=== PATIENT | male | born 1940 | race Caucasian/White ===

== ENCOUNTER 2020-10-08 09:35 | Inpatient (IN) | payer MEDICARE, OTHER ==
[2020-10-08] MEDS ORDERED: IPRATROPIUM-ALBUTEROL 3 ML NEB INHALATION STA (10:09)
--- NOTE | 2020-10-08 10:23 | XR ---
EXAMINATION TYPE: XR chest 2V DATE OF EXAM: 10/08/2020 COMPARISON: NONE HISTORY: Chest pain TECHNIQUE: Frontal and lateral views of the chest are obtained. FINDINGS: There is patchy airspace disease seen bilaterally with mild pulmonary edema and small bilateral pleur al effusions. Cardiac silhouette is not significantly enlarged. IMPRESSION: There is patchy airspace disease seen bilaterally with mild pulmonary edema and small bilateral pleur al effusions.
[2020-10-08 10:48] LABS: Basophils # (A) 0.1 k/uL (0-0.2); Basophils % (A) 1 %; Eosinophils # (A) 0.2 k/uL (0-0.7); Eosinophils % (A) 2 %; HCT 38.3 % (39.0-53.0); Lymphocytes % (A) 11 %; MCH 32.9 pg (25.0-35.0); MCHC 33.9 g/dL (31.0-37.0); Mean Platelet Volume 7.5; Monocytes # (A) 0.4 k/uL (0-1.0); Monocytes % (A) 5 %; Neutrophils # (A) 6.8 k/uL (1.3-7.7); Neutrophils % (A) 80 %; Platelet Count 192 k/uL (150-450); RBC 3.95 m/uL (4.30-5.90); RDW 14.4 % (11.5-15.5); WBC 8.5 k/uL (3.8-10.6)
[2020-10-08 10:59] LABS: Albumin 4.2 g/dL (3.5-5.0); Calcium 9.2 mg/dL (8.4-10.2); Magnesium 2.1 mg/dL (1.6-2.3); Total Bilirubin 0.9 mg/dL (0.2-1.3); Total Protein 7.1 g/dL (6.3-8.2)
[2020-10-08 11:36] LABS: Prothrombin Time 10.9 sec (9.0-12.0)
--- NOTE | 2020-10-08 11:36 | ED ---
SOB HPI - General Chief Complaint: Shortness of Breath Stated Complaint: Time Seen by Provider: 10/08/20 09:35 Source: patient, RN/MD, EMS, RN notes reviewed Mode of arrival: EMS Limitations: no limitations - History of Present Illness Initial Comments: This is a 80-year-old male who is a smoker but denies any history of heart disease or lung issues who was sent in from [facility] today because of chest heaviness and shortness of breath. He did demonstrate evidence of a bundle- branch block. He was given aspirin at the facility. He was transferred here by EMS. He currently demonstrates no chest pain he does have some slight shortness of breath he describes the pain as a heaviness something sitting on his chest when he has it. No recent fevers chills nausea vomiting sweats no phlegm production. MD Complaint: shortness of breath, chest pain - Related Data Allergies Allergy/AdvReac Type Severity Reaction Status Date / Time No Known Allergies Allergy Verified 10/08/20 09:47 Review of Systems ROS Statement: Those systems with pertinent positive or pertinent negative responses have been documented in the HPI. ROS Other: All systems not noted in ROS Statement are negative. Past Medical History Past Medical History: No Reported History History of Any Multi-Drug Resistant Organisms: None Reported Past Surgical History: No Surgical Hx Reported Past Psychological History: No Psychological Hx Reported Smoking Status: Light tobacco smoker Past Alcohol Use History: None Reported Past Drug Use History: None Reported General Exam - General Exam Comments Initial Comments: This is a well-developed well-nourished awake alert oriented 3 male Limitations: no limitations General appearance: alert, in no apparent distress Head exam: Present: atraumatic, normocephalic, normal inspection Eye exam: Present: normal appearance, PERRL, EOMI. Absent: scleral icterus, conjunctival injection, periorbital swelling ENT exam: Present: normal exam, mucous membranes moist Neck exam: Present: normal inspection. Absent: tenderness, meningismus, lymphadenopathy Respiratory exam: Present: normal lung sounds bilaterally, decreased breath sounds. Absent: respiratory distress, wheezes, rales, rhonchi, stridor Cardiovascular Exam: Present: normal rhythm, tachycardia, normal heart sounds. Absent: systolic murmur, diastolic murmur, rubs, gallop, clicks GI/Abdominal exam: Present: soft, normal bowel sounds. Absent: distended, tenderness, guarding, rebound, rigid Extremities exam: Present: normal inspection, full ROM, normal capillary refill. Absent: tenderness, pedal edema, joint swelling, calf tenderness Back exam: Present: normal inspection Neurological exam: Present: alert, oriented X3, CN II-XII intact Psychiatric exam: Present: normal affect, normal mood Skin exam: Present: warm, dry, intact, normal color. Absent: rash Course Vital Signs 10/08/20 10/08/20 10/08/20 09:43 10:30 10:33 Temperature 98.3 F Pulse Rate 106 H 96 94 Respiratory 24 24 Rate Blood Pressure 162/122 135/86 O2 Sat by Pulse 89 L 97 Oximetry 10/08/20 10/08/20 10:41 11:30 Temperature Pulse Rate 91 76 Respiratory 20 Rate Blood Pressure 132/79 O2 Sat by Pulse 97 Oximetry - Reevaluation(s) Reevaluation #1: 10/08/20 13:01 Reevaluation patient still has no chest pain at this time his breathing is improved after the nebulizer treatment. Medical Decision Making - Medical Decision Making I did discuss Pfizer the patient as well as with Dr. Mcfarland who did see the patient in emergency department as well as Dr. Coe from cardiology patient will be admitted is evidence of CHF and elevated troponin and the left bundle- branch block. He will be started on IV heparin and nitro paste - Lab Data Result diagrams: 10/08/20 10:38 10/08/20 10:38 Lab Results 10/08/20 10/08/20 10/08/20 Range/Units 10:38 10:38 10:38 WBC 8.5 (3.8-10.6) k/uL RBC 3.95 L (4.30-5.90) m/uL Hgb 13.0 (13.0-17.5) gm/dL Hct 38.3 L (39.0-53.0) % MCV 97.0 (80.0-100.0) fL MCH 32.9 (25.0-35.0) pg MCHC 33.9 (31.0-37.0) g/dL RDW 14.4 (11.5-15.5) % Plt Count 192 (150-450) k/uL MPV 7.5 Neutrophils % 80 % Lymphocytes % 11 % Monocytes % 5 % Eosinophils % 2 % Basophils % 1 % Neutrophils # 6.8 (1.3-7.7) k/uL Lymphocytes # 1.0 (1.0-4.8) k/uL Monocytes # 0.4 (0-1.0) k/uL Eosinophils # 0.2 (0-0.7) k/uL Basophils # 0.1 (0-0.2) k/uL PT 10.9 (9.0-12.0) sec INR 1.0 (<1.2) APTT 20.5 L (22.0-30.0) sec Sodium 141 (137-145) mmol/L Potassium 4.0 (3.5-5.1) mmol/L Chloride 107 (98-107) mmol/L Carbon Dioxide 26 (22-30) mmol/L Anion Gap 8 mmol/L BUN 17 (9-20) mg/dL Creatinine 1.18 (0.66-1.25) mg/dL Est GFR (CKD-EPI)AfAm 66 (>60 ml/min/1.73 sqM) Est GFR (CKD-EPI)NonAf 57 (>60 ml/min/1.73 sqM) Glucose 148 H (74-99) mg/dL Calcium 9.2 (8.4-10.2) mg/dL Magnesium 2.1 (1.6-2.3) mg/dL Total Bilirubin 0.9 (0.2-1.3) mg/dL AST 22 (17-59) U/L ALT 10 (4-49) U/L Alkaline Phosphatase 80 (38-126) U/L Creatine Kinase 61 (55-170) U/L Troponin I (0.000-0.034) ng/mL NT-Pro-B Natriuret Pep pg/mL Total Protein 7.1 (6.3-8.2) g/dL Albumin 4.2 (3.5-5.0) g/dL 10/08/20 10/08/20 Range/Units 10:38 11:49 WBC (3.8-10.6) k/uL RBC (4.30-5.90) m/uL Hgb (13.0-17.5) gm/dL Hct (39.0-53.0) % MCV (80.0-100.0) fL MCH (25.0-35.0) pg MCHC (31.0-37.0) g/dL RDW (11.5-15.5) % Plt Count (150-450) k/uL MPV Neutrophils % % Lymphocytes % % Monocytes % % Eosinophils % % Basophils % % Neutrophils # (1.3-7.7) k/uL Lymphocytes # (1.0-4.8) k/uL Monocytes # (0-1.0) k/uL Eosinophils # (0-0.7) k/uL Basophils # (0-0.2) k/uL PT (9.0-12.0) sec INR (<1.2) APTT (22.0-30.0) sec Sodium (137-145) mmol/L Potassium (3.5-5.1) mmol/L Chloride (98-107) mmol/L Carbon Dioxide (22-30) mmol/L Anion Gap mmol/L BUN (9-20) mg/dL Creatinine (0.66-1.25) mg/dL Est GFR (CKD-EPI)AfAm (>60 ml/min/1.73 sqM) Est GFR (CKD-EPI)NonAf (>60 ml/min/1.73 sqM) Glucose (74-99) mg/dL Calcium (8.4-10.2) mg/dL Magnesium (1.6-2.3) mg/dL Total Bilirubin (0.2-1.3) mg/dL AST (17-59) U/L ALT (4-49) U/L Alkaline Phosphatase (38-126) U/L Creatine Kinase (55-170) U/L Troponin I 0.037 H* (0.000-0.034) ng/mL NT-Pro-B Natriuret Pep 7050 pg/mL Total Protein (6.3-8.2) g/dL Albumin (3.5-5.0) g/dL - EKG Data -: EKG Interpreted by Me EKG Comments: Sinus rhythm PACs noted rate 94. Interval 192 QRS 158 QT since QTC 422/527 left bundle-branch block is noted. - Radiology Data Radiology results: report reviewed (Imaging reviewed evidence of basilar infiltrates and pleural effusions), image reviewed Critical Care Time Critical Care Time: Yes Total Critical Care Time: 37 Critical Care Time: Critical care time includes initial presentation with history physical labs x- rays several reevaluation the patient response to therapy discussion immediately physician and consult. Discussed with paramedics upon arrival admission orders documentation the above Disposition Clinical Impression: Unstable angina, Congestive heart failure, Bronchospasm, Smoker, Hypertension Disposition: ADMITTED IP TO THIS HOSP Condition: Fair Referrals: Isabella Wan MD [Primary Care Provider] - 1-2 days
[2020-10-08 11:46] LABS: Partial Thromboplastin Time 20.5 sec (22.0-30.0)
[2020-10-08] MEDS ORDERED: FUROSEMIDE 10 MG/ML 4 ML VIAL IV STA (13:00)
[2020-10-08] MEDS ORDERED: NITROGLYCERIN SL TABS 0.4 MG TAB SUBLINGUAL PRN (13:13)
[2020-10-08] MEDS ORDERED: HEPARIN SODIUM 1,000 UN/ML (10ML VL) IV ONE (13:13)
[2020-10-08] MEDS ORDERED: ACETAMINOPHEN TAB 325 MG TAB PO PRN (13:38)
[2020-10-08] MEDS ORDERED: traMADol 50 MG TAB PO PRN (13:38)
[2020-10-08] MEDS ORDERED: NALOXONE 0.4 MG/ML 1 ML VIAL IV PRN (13:38)
--- NOTE | 2020-10-08 13:41 | P.CRDCN ---
History of Present Illness History of present illness: HISTORY OF PRESENTING ILLNESS This is a pleasant 80-year-old male past medical history significant for tobacco dependence. 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 We have been asked to see in consultation for shortness of breath. He is seen and evaluated in the ER. He presented to the hospital with symptoms of shortness of breath that started acutely at 10 pm last night. He states his day was a normal day. 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 When he dariel to lay down for bed he became short of breath. He didn't sleep well through the night and developed some chest heaviness this morning so he went to urgent care. He was sent here via EMS. He denies any further symptoms of chest pain. His breathing is currently stable. DIAGNOSTICS EKG reveals left bundle branch block. Telemetry tracings indicate left bundle branch block. Chest xray reveals patchy airspace disease bilaterally with mild pulmonary edema and small bilateral pleural effusions. Laboratory reviewed, WBC 8.5, hgb 13, plt 192, sodium 141, potassium 4.0, creatinine 1.18, magnesium 2.1, trop 0.037 and NTproBNP 7050. He takes no daily cardiac medications. REVIEW OF SYSTEMS At the time of my exam: CONSTITUTIONAL: Denies fever or chills. CARDIOVASCULAR: Denies chest pain, shortness of breath, orthopnea, PND or palpit ations. RESPIRATORY: Denies cough. GASTROINTESTINAL: Denies abdominal pain, diarrhea, constipation, nausea or vomiting. MUSCULOSKELETAL: Denies myalgias. NEUROLOGIC: Denies numbness, tingling, headacbe or weakness. ENDOCRINE: Denies fatigue, weight change, polydipsia or polyurina. GENITOURINARY: Denies burning, hematuria or urgency with micturation. HEMATOLOGIC: Denies history of anemia or bleeding. PHYSICAL EXAMINATION Blood pressure 132/79 heart rate 76 afebrile and maintaining oxygen saturation on nasal cannula. CONSTITUTIONAL: No apparent distress. HEENT: Head is normocephalic. Pupils are equal, round. Sclerae anicteric. Mucous membranes of the mouth are moist. No JVD. Bilateral carotid bruit. CHEST EXAMINATION: Bibasilar rales, expiratory wheeze, no rhonchi. No chest wall tenderness is noted on palpation or with deep breathing. HEART EXAMINATION: Regular rate and rhythm. S1, S2 heard. Systolic ejection murmur at the base, no gallops or rub. ABDOMEN: Soft, nontender. Positive bowel sounds. EXTREMITIES: 2+ peripheral pulses, no lower extremity edema and no calf tenderness. NEUROLOGIC EXAMINATION: Patient is awake, alert and oriented x3. ASSESSMENT Acute heart failure, unknown type. Echo pending. NSTEMI COPD with acute exacerbation Hypertension Systolic murmur, suspect aortic stenosis Chronic tobacco dependence, he smoke a pipe daily PLAN Check stat d-dimer and CTA if abnormal. Heparin infusion initiated in the ER. Decrease aspirin to 81 mg daily. Initiate lopressor 12.5 mg BID. Continue IV lasix. Document accurate intake and output along with daily weights. Follow renal function and electrolytes in the morning. Obtain 2D echocardiogram and doppler study to assess cardiac structure and function. Repeat EKG in the morning. NPO after midnight tonight for possible catheterization in the morning depending on troponin trend and clinical status. Further recommendations to follow based on clinical course. Thank you kindly for this consultation. Nurse Practitioner note has been reviewed, I agree with a documented findings and plan of care. Patient was seen and examined. Past Medical History Past Medical History: No Reported History History of Any Multi-Drug Resistant Organisms: None Reported Past Surgical History: No Surgical Hx Reported Past Psychological History: No Psychological Hx Reported Smoking Status: Light tobacco smoker Past Alcohol Use History: None Reported Past Drug Use History: None Reported Medications and Allergies Allergies Allergy/AdvReac Type Severity Reaction Status Date / Time No Known Allergies Allergy Verified 10/08/20 09:47 Physical Exam Vitals: Vital Signs Temp Pulse Resp BP Pulse Ox 10/08/20 11:30 76 20 132/79 97 10/08/20 10:41 91 10/08/20 10:33 94 10/08/20 10:30 96 24 135/86 97 10/08/20 09:43 98.3 F 106 H 24 162/122 89 L Intake and Output 10/07/20 10/08/20 10/08/20 22:59 06:59 14:59 Other: Weight 87.997 kg Results 10/08/20 10:38 10/08/20 10:38 Cardiac Enzymes 10/08/20 10/08/20 Range/Units 10:38 10:38 AST 22 (17-59) U/L Troponin I 0.037 H* (0.000-0.034) ng/mL Coagulation 10/08/20 Range/Units 10:38 PT 10.9 (9.0-12.0) sec APTT 20.5 L (22.0-30.0) sec CBC 10/08/20 Range/Units 10:38 WBC 8.5 (3.8-10.6) k/uL RBC 3.95 L (4.30-5.90) m/uL Hgb 13.0 (13.0-17.5) gm/dL Hct 38.3 L (39.0-53.0) % Plt Count 192 (150-450) k/uL Comprehensive Metabolic Panel 10/08/20 Range/Units 10:38 Sodium 141 (137-145) mmol/L Potassium 4.0 (3.5-5.1) mmol/L Chloride 107 (98-107) mmol/L Carbon Dioxide 26 (22-30) mmol/L BUN 17 (9-20) mg/dL Creatinine 1.18 (0.66-1.25) mg/dL Glucose 148 H (74-99) mg/dL Calcium 9.2 (8.4-10.2) mg/dL AST 22 (17-59) U/L ALT 10 (4-49) U/L Alkaline Phosphatase 80 (38-126) U/L Total Protein 7.1 (6.3-8.2) g/dL Albumin 4.2 (3.5-5.0) g/dL Current Medications Generic Name Dose Route Start Last Admin Trade Name Freq PRN Reason Stop Dose Admin Albuterol/Ipratropium 3 ml 10/08/20 18:00 Ipratropium-Albuterol 3 Ml Neb INHALATION Q6HR SHAKIR Aspirin 81 mg 10/09/20 09:00 Aspirin 81 Mg PO DAILY SHAKIR Furosemide 40 mg 10/08/20 21:00 Furosemide 10 Mg/Ml 4 Ml Vial IV BID [facility] Sodium Chloride 1,000 mls @ 20 mls/hr 10/08/20 13:15 Saline 0.9% IV .Q24H [facility] Heparin Sodium/Sodium Chloride 250 mls @ 10 mls/hr 10/08/20 13:15 25,000 unit/ Sodium Chloride IV .Q24H [facility] Protocol 11.364 UNITS/KG/HR Metoprolol Tartrate 12.5 mg 10/08/20 13:30 Metoprolol Tartrate 12.5 Mg Tab PO BID SHAKIR Nitroglycerin 0.4 mg 10/08/20 13:13 Nitroglycerin Sl Tabs 0.4 Mg Tab SUBLINGUAL Q5M PRN Chest Pain Intake and Output 10/07/20 10/08/20 10/08/20 22:59 06:59 14:59 Other: Weight 87.997 kg Patient Weight 10/09/20 06:59 Weight 87.997 kg 10/08/20 10:38 10/08/20 10:38
[2020-10-08] MEDS: HEPARIN SOD,PORK IN 0.45% NACL 25,000 UNIT in 0.45% NACL 1 250ML.BAG IV SCH (13:46)
[2020-10-08] MEDS: SODIUM CHLORIDE 0.9% 1,000 ML IV SCH (13:49)
[2020-10-08] MEDS: FUROSEMIDE 10 MG/ML 4 ML VIAL IV SCH (13:53)
[2020-10-08] MEDS: NICOTINE 21MG/24HR PATCH TRANSDERM STA ×2 (13:53→14:11)
--- NOTE | 2020-10-08 14:13 | US ---
EXAMINATION TYPE: US carotid duplex BILAT DATE OF EXAM: 10/08/2020 COMPARISON: NONE CLINICAL HISTORY: bruit. EXAM MEASUREMENTS: RIGHT: Peak Systolic Velocity (PSV) cm/sec ----- Right CCA: 49.4 ----- Right ICA: 99.8 ----- Right ECA: 44.5 ICA/CCA ratio: 2.0 RIGHT: End Diastole cm/sec ----- Right CCA: 14.3 ----- Right ICA: 24.2 ----- Right ECA: 0.0 LEFT: Peak Systolic Velocity (PSV) cm/sec ----- Left CCA: 60.4 ----- Left ICA: 76.3 ----- Left ECA: 50.1 ICA/CCA ratio: 1.3 LEFT: End Diastole cm/sec ----- Left CCA: 16.5 ----- Left ICA: 20.2 ----- Left ECA: 0.0 VERTEBRALS (direction of flow): Right Vertebral: Antegrade Left Vertebral: Antegrade Rhythm: Normal No elevated velocities Right ICA/CCA ratio 2.0 IMPRESSION: No sonographic evidence for hemodynamically significant stenosis in the bilateral carotid arteries. Criteria for Assigning % of Stenosis / Diameter reduction (Estimation based on the indirect measurements of the internal carotid artery velocities (ICA PSV). 1. Normal (no stenosis)=ICA PSV < 125 cm/s: ratio < 2.0: ICA EDV<40 cm/s. 2. Less than 50% stenosis=ICA PSV < 125 cm/s: ratio < 2.0: ICA EDV<40 cm/s. 3. 50 to 69% stenosis=ICA PSV of 125 to 230 cm/s: ration 2.0 ? 4.0: ICA EDV 40-100 cm/s. 4. Greater than 70% stenosis to near occlusion= ICA PSV > 230 cm/s: ratio > 4.0: ICA EDV > 100 cm/s. 5. Near occlusion= ICA PSV velocities may be low or undetectable: variable ratio and ICA EDV. 6. Total occlusion=unable to detect flow.
[2020-10-08] MEDS: METOPROLOL TARTRATE 12.5 MG TAB PO SCH ×2 (15:26→20:23)
--- NOTE | 2020-10-08 15:42 | P.HPIM ---
History of Present Illness H&P Date: 10/08/20 Chief Complaint: chest pressure, dyspnea 80-year-old man, current smoker, history of chronic back pain presented with chest pressure and shortness of breath. Patient says that his symptoms started last night when he went to bed, and as he lied down, he noticed an immediate shortness of breath. This dyspnea did improve positionally. Today, patient had trouble with chest pressure, and continued to have difficulty with dyspnea. Based on the symptoms he was concerned enough to go to urgent care, and was recommended to come to the emergency room via EMS. During our interview, patient denied chest pain, fevers, chills, nausea, vomiting, palpitations, cough, syncope, presyncope, abdominal pain, consultation, diarrhea, dysuria, numbness/weakness. In the emergency room, patient was noted to have oxygen requirement of 2 L saturating 97%, 132/79, heart rate 76. Lab work was concerning for elevated troponin of 0.037, elevated BNP of 7050. Troponin later trended to 0.053. Chest x-ray demonstrated changes of pulmonary vascular congestion, pulmonary edema, pleural effusions bilaterally. EKG demonstrated sinus rhythm with left bundle-branch block. Cardiology was counseled by the emergency room, hospitalist service was asked to admit the patient. Review of Systems All Systems reviewed and pertinent positives and negatives noted in HPI, all other symptoms are negative Past Medical History Past Medical History: No Reported History History of Any Multi-Drug Resistant Organisms: None Reported Past Surgical History: No Surgical Hx Reported Past Psychological History: No Psychological Hx Reported Smoking Status: Light tobacco smoker Past Alcohol Use History: None Reported Past Drug Use History: None Reported Medications and Allergies Home Medications Medication Instructions Recorded Confirmed Type Ibuprofen [Advil] 200 mg PO Q8HR PRN 10/08/20 10/08/20 History traMADol HCL 50 mg PO BID PRN 10/08/20 10/08/20 History Allergies Allergy/AdvReac Type Severity Reaction Status Date / Time No Known Allergies Allergy Verified 10/08/20 14:03 Physical Exam Osteopathic Statement: *. No significant issues noted on an osteopathic structural exam other than those noted in the History and Physical/Consult. Vitals: Vital Signs Temp Pulse Pulse Resp BP BP Pulse Ox 10/08/20 15:24 97.7 F 84 18 134/84 99 10/08/20 11:30 76 20 132/79 97 10/08/20 10:41 91 10/08/20 10:33 94 10/08/20 10:30 96 24 135/86 97 10/08/20 09:43 98.3 F 106 H 24 162/122 89 L Intake and Output 10/08/20 10/08/20 10/08/20 06:59 14:59 22:59 Other: Weight 87.997 kg Gen: awake, alert HEENT: normocephalic, atraumatic, good hearing acuity, moist mucous membranes Resp: Diminished air exchange, prolonged expiratory phase with mild end expiratory wheezing, no accessory muscle use, bilateral crackles to mid chest CVS: good distal perfusion x 4, regular rate and rhythm, systolic crescendo decrescendo murmur, + JVD to mid neck in an upright position GI: soft, NTTP, ND, appropriate bowel sounds : no SPT, no CVAT, cook catheter not present MSK: no pitting edema, no clubbing Neuro: non-focal, moving all extremities Psych: cooperative, euthymic mood Results CBC & Chem 7: 10/08/20 10:38 10/08/20 10:38 Labs: Abnormal Lab Results - Last 24 Hours (Table) 10/08/20 10/08/20 10/08/20 Range/Units 10:38 10:38 10:38 RBC 3.95 L (4.30-5.90) m/uL Hct 38.3 L (39.0-53.0) % APTT 20.5 L (22.0-30.0) sec D-Dimer (<0.60) mg/L FEU Glucose 148 H (74-99) mg/dL Troponin I (0.000-0.034) ng/mL 10/08/20 10/08/20 10/08/20 Range/Units 10:38 13:38 13:38 RBC (4.30-5.90) m/uL Hct (39.0-53.0) % APTT (22.0-30.0) sec D-Dimer 0.78 H (<0.60) mg/L FEU Glucose (74-99) mg/dL Troponin I 0.037 H* 0.053 H* (0.000-0.034) ng/mL Thrombosis Risk Factor Assmnt - Choose All That Apply Each Risk Factor Represents 3 Points: Age 75 years or older Thrombosis Risk Factor Assessment Total Risk Factor Score: 3 Thrombosis Risk Factor Assessment Level: Moderate Risk Assessment and Plan Assessment: Acute congestive heart failure exacerbation, unknown type with echo pending NSTEMI Aortic stenosis, severity unknown -Admit to telemetry -Cardiology consult -Echocardiogram pending -I/os, daily weights -Lasix 40 mg IV daily -Heparin drip -Aspirin loaded, aspirin daily -Metoprolol -Statin -A1c, pending -Lipid panel, pending COPD with mild acute exacerbation -DuoNeb's when necessary -Oxygen when necessary -We'll defer prednisone at this time -Outpatient pulmonology evaluation with PFTs Chronic back pain Tobacco use disorder -Nicotine patch if requested -Tylenol, tramadol when necessary for back pain Patient is full code On therapeutic anticoagulation is next of kin
[2020-10-08] MEDS ORDERED: IPRATROPIUM-ALBUTEROL 3 ML NEB INHALATION SCH (18:00)
[2020-10-08] MEDS ORDERED: IPRATROPIUM-ALBUTEROL 3 ML NEB INHALATION PRN (19:32)
[2020-10-08] MEDS: ATORVASTATIN 80 MG TAB PO SCH (20:23)
[2020-10-08] MEDS ORDERED: FUROSEMIDE 10 MG/ML 4 ML VIAL IV SCH (21:00)
[2020-10-08 23:29] LABS: Chol/HDL Ratio 3.52; LDL Cholesterol,Calculated 101.2 mg/dL (0.0-131.0); VLDL Calculation 14.8 mg/dL (5.00-40.00)
[2020-10-09 05:04] LABS: Basophils # (A) 0.1 k/uL (0-0.2); Basophils % (A) 1 %; Eosinophils # (A) 0.2 k/uL (0-0.7); Eosinophils % (A) 2 %; HCT 39.1 % (39.0-53.0); HGB 13.2 gm/dL (13.0-17.5); Lymphocytes # (A) 1.5 k/uL (1.0-4.8); Lymphocytes % (A) 15 %; MCHC 33.8 g/dL (31.0-37.0); MCV 97.6 fL (80.0-100.0); Mean Platelet Volume 7.7; Monocytes # (A) 0.6 k/uL (0-1.0); Monocytes % (A) 6 %; Neutrophils # (A) 7.6 k/uL (1.3-7.7); Neutrophils % (A) 75 %; Platelet Count 232 k/uL (150-450); RDW 14.6 % (11.5-15.5); WBC 10.1 k/uL (3.8-10.6)
[2020-10-09 05:07] LABS: INR 1.1 (<1.2); Partial Thromboplastin Time 35.4 sec (22.0-30.0); Prothrombin Time 11.2 sec (9.0-12.0)
[2020-10-09 05:15] LABS: Calcium 9.4 mg/dL (8.4-10.2); Magnesium 2.1 mg/dL (1.6-2.3); Potassium 4.2 mmol/L (3.5-5.1)
[2020-10-09 06:27] LABS: Glucose,Whole Blood 126 mg/dL (75-99)
[2020-10-09] MEDS: ASPIRIN 81 MG PO SCH (08:57)
[2020-10-09] MEDS: FUROSEMIDE 10 MG/ML 4 ML VIAL IV SCH ×2 (08:58→19:56)
[2020-10-09] MEDS: METOPROLOL TARTRATE 25 MG TAB PO SCH ×2 (08:58→19:55)
[2020-10-09] MEDS ORDERED: ASPIRIN 325 MG TAB PO SCH (09:00)
--- NOTE | 2020-10-09 11:02 | P.PN ---
Subjective Progress Note Date: 10/09/20 No new complaints. Pt reports improvement in pain and dyspnea. Objective - Vital Signs Vital signs: Vital Signs Temp 98.2 F 10/09/20 08:00 Pulse 93 10/09/20 08:00 Resp 20 10/09/20 08:00 BP 139/80 10/09/20 08:00 Pulse Ox 97 10/09/20 08:00 Intake & Output 10/08/20 10/09/20 10/09/20 18:59 06:59 18:59 Intake Total 168.299 Balance 168.299 Weight 87.997 kg Intake: Intake, IV Titration 168.299 Amount Heparin Sod,Pork in 0.45% 168.299 NaCl 25,000 unit In 0.45 % NaCl 1 250ml.bag @ 11. 364 UNITS/KG/HR 10 mls/hr IV .Q24H [facility] Rx#: [id number] - Exam Gen: awake, alert HEENT: normocephalic, atraumatic, good hearing acuity, moist mucous membranes Resp: Diminished air exchange, prolonged expiratory phase with mild end expiratory wheezing, no accessory muscle use, bilateral crackles to mid chest CVS: good distal perfusion x 4, regular rate and rhythm, systolic crescendo decrescendo murmur, + JVD to mid neck in an upright position GI: soft, NTTP, ND, appropriate bowel sounds : no SPT, no CVAT, cook catheter not present MSK: no pitting edema, no clubbing Neuro: non-focal, moving all extremities Psych: cooperative, euthymic mood - Labs CBC & Chem 7: 10/09/20 04:06 10/09/20 04:06 Labs: Abnormal Lab Results - Last 24 Hours (Table) 10/08/20 10/08/20 10/08/20 Range/Units 10:38 10:38 13:38 RBC (4.30-5.90) m/uL APTT 20.5 L (22.0-30.0) sec D-Dimer 0.78 H (<0.60) mg/L FEU Glucose (74-99) mg/dL POC Glucose (mg/dL) (75-99) mg/dL Troponin I 0.037 H* (0.000-0.034) ng/mL 10/08/20 10/08/20 10/08/20 Range/Units 13:38 17:09 20:31 RBC (4.30-5.90) m/uL APTT 38.6 H (22.0-30.0) sec D-Dimer (<0.60) mg/L FEU Glucose (74-99) mg/dL POC Glucose (mg/dL) (75-99) mg/dL Troponin I 0.053 H* 0.057 H* (0.000-0.034) ng/mL 10/09/20 10/09/20 10/09/20 Range/Units 04:06 04:06 04:06 RBC 4.00 L (4.30-5.90) m/uL APTT 35.4 H (22.0-30.0) sec D-Dimer (<0.60) mg/L FEU Glucose 144 H (74-99) mg/dL POC Glucose (mg/dL) (75-99) mg/dL Troponin I (0.000-0.034) ng/mL 10/09/20 10/09/20 Range/Units 06:20 07:27 RBC (4.30-5.90) m/uL APTT 45.4 H (22.0-30.0) sec D-Dimer (<0.60) mg/L FEU Glucose (74-99) mg/dL POC Glucose (mg/dL) 126 H (75-99) mg/dL Troponin I (0.000-0.034) ng/mL Assessment and Plan Assessment: Acute congestive heart failure exacerbation, unknown type with echo pending NSTEMI Aortic stenosis, severity unknown -Admit to telemetry -Cardiology consult -Echocardiogram pending -I/os, daily weights -Lasix 40 mg IV daily -Heparin drip -Aspirin loaded, aspirin daily -Metoprolol -Statin -A1c, pending -Lipid panel = TG/LDL/HDL - 74/101/46 COPD with mild acute exacerbation -DuoNeb's when necessary -Oxygen when necessary -We'll defer prednisone at this time -Outpatient pulmonology evaluation with PFTs Chronic back pain Tobacco use disorder -Nicotine patch if requested -Tylenol, tramadol when necessary for back pain Patient is full code On therapeutic anticoagulation is next of kin
[2020-10-09 11:54] LABS: Glucose,Whole Blood 137 mg/dL (75-99)
--- NOTE | 2020-10-09 11:59 | PN ---
PROGRESS NOTE This gentleman came into the hospital with increasing shortness of breath. Troponin profile does not suggest myocardial injury. D-dimer is mildly elevated at 0.78. Patient is on a heparin drip, which we will continue till the end of today. Patient has probably moderate aortic stenosis, exacerbation of COPD in a patient with history of smoking and may have CAD, but I do not believe we are dealing with any significant myocardial injury. Echo report is still pending. Vitals are stable. His breathing is better. Complains of mild abdominal discomfort. No JVD. S1, S2 heard normally. Ejection systolic murmur at the base is audible. Lungs reveal diminished air entry. Abdomen is soft, nontender. Lower extremities reveal diminished pulses. Central nervous system grossly within normal limits. IMPRESSION: 1. Probable moderate aortic stenosis. 2. Exacerbation of chronic obstructive pulmonary disease. 3. Elevated troponin, not suggestive of myocardial injury, probably could be related to aortic stenosis. 4. Abdominal discomfort seems to be nonspecific. RECOMMENDATIONS: I am requesting a pulmonary evaluation by Dr. De La Rosa for COPD. Patient is a smoker. I will increase metoprolol to 25 mg b.i.d. I will await findings on the echocardiogram which will be performed today. MMODL / IJN: [id number] /
--- NOTE | 2020-10-09 12:19 | P.CNPUL ---
History of Present Illness Consult date: 10/09/20 Requesting physician: Carmelina Mcfarland Reason for consult: dyspnea, abnormal CXR/CT Chief complaint: Chest heaviness, shortness of breath History of present illness: This is a very pleasant 80-year-old gentleman who follows with Dr. Wan as his primary care provider. He has no significant medical history. He does have a history of pipe smoking for greater than 50 years at usually 1 pipe per day. No previous pulmonary history. No history of asthma. No COPD or emphysema. Not on oxygen or inhalers in the outpatient setting. He presented to [facility] yesterday with some chest heaviness and shortness of breath. An EKG revealed a bundle branch block. He was given an aspirin and transferred here to the emergency room by EMS. No cough or congestion. No fever, chills or night swe ats. No chest tightness or wheezing. Chest x-ray revealed some scarring/fibrosis type picture. Question of congestive heart failure. Carotid Dopplers revealed no significant stenosis. White count 10.1. Hemoglobin 13.2. Sodium 138. Potassium 4.2. Creatinine 1.11. Troponin 0.057. ProBNP 7015. Lawler virus not detected. D-dimer 0.78. He was initiated on a heparin drip. Lasix 40 mg IV daily. Echocardiogram pending. Presently, he is sitting up in a chair at the bedside. Awake and alert in no acute distress. He states he still has some lingering chest discomfort. Some dyspnea on exertion. Maintaining O2 saturations in the 90s on 2 L/m per nasal cannula. He's been afebrile. H emodynamically stable. Review of Systems REVIEW OF SYSTEMS: CONSTITUTIONAL: Denies any recent significant weight loss or weight gain. EYES: Denies change in vision. EARS, NOSE, MOUTH, THROAT: Denies headaches, denies sore throat. CARDIOVASCULAR: Positive for chest pain, no palpitations or syncopal episodes. RESPIRATORY: Positive for shortness of breath, no cough, congestion or hemoptysis. GASTROINTESTINAL: Denies change in appetite, denies abdominal pain GENITOURINARY: Denies hematuria, denies infections. MUSKULOSKELETAL: Denies pain, denies swelling. INTEGUMENTARY: Denies rash, denies eczema. NEUROLOGICAL: Denies recent memory loss, no recent seizure activity. PSYCHIATRIC: Denies anxiety, denies depression. HEMATOLOGIC/LYMPHATIC: Denies anemia, denies enlarged lymph nodes. Past Medical History Past Medical History: No Reported History History of Any Multi-Drug Resistant Organisms: None Reported Past Surgical History: No Surgical Hx Reported Past Psychological History: No Psychological Hx Reported Smoking Status: Light tobacco smoker Past Alcohol Use History: None Reported Past Drug Use History: None Reported Medications and Allergies Home Medications Medication Instructions Recorded Confirmed Type Ibuprofen [Advil] 200 mg PO Q8HR PRN 10/08/20 10/08/20 History traMADol HCL 50 mg PO BID PRN 10/08/20 10/08/20 History Allergies Allergy/AdvReac Type Severity Reaction Status Date / Time No Known Allergies Allergy Verified 10/08/20 14:03 Physical Exam Vitals: Vital Signs Temp Pulse Resp BP Pulse Ox 10/09/20 11:53 97.6 F 66 20 119/69 97 10/09/20 08:00 98.2 F 93 20 139/80 97 10/09/20 04:00 98.7 F 90 20 136/78 95 10/09/20 02:00 77 18 10/08/20 23:25 77 18 142/88 95 10/08/20 20:00 98.3 F 72 16 123/78 99 10/08/20 15:24 97.7 F 84 18 134/84 99 Intake and Output 10/08/20 10/09/20 10/09/20 22:59 06:59 14:59 Intake Total 74.667 93.632 Balance 74.667 93.632 Intake: Intake, IV Titration 74.667 93.632 Amount Heparin Sod,Pork in 0.45% 74.667 93.632 NaCl 25,000 unit In 0.45 % NaCl 1 250ml.bag @ 11. 364 UNITS/KG/HR 10 mls/hr IV .Q24H [facility] Rx#: [id number] GENERAL EXAM: Alert, pleasant 80-year-old gentleman, on 2 L nasal cannula, comfortable in no apparent distress. HEAD: Normocephalic. EYES: Normal reaction of pupils, equal size. NOSE: Clear with pink turbinates. THROAT: No erythema or exudates. NECK: No masses, no JVD. CHEST: No chest wall deformity. LUNGS: Equal air entry with crackles in the right lung base. CVS: S1 and S2 normal with no audible murmur, regular rhythm. ABDOMEN: No hepatosplenomegaly, normal bowel sounds, no guarding or rigidity. SPINE: No scoliosis or deformity SKIN: No rashes CENTRAL NERVOUS SYSTEM: No focal deficits, tone is normal in all 4 extremities. EXTREMITIES: There is no peripheral edema. No clubbing, no cyanosis. Peripheral pulses are intact. Results - Laboratory Findings CBC and BMP: 10/09/20 04:06 10/09/20 04:06 PT/INR, D-dimer PT 11.2 sec (9.0-12.0) 10/09/20 04:06 INR 1.1 (<1.2) 10/09/20 04:06 D-Dimer 0.78 mg/L FEU (<0.60) H 10/08/20 13:38 Abnormal lab findings: Abnormal Labs 10/08/20 10/08/20 10/08/20 10:38 10:38 10:38 RBC 3.95 L Hct 38.3 L APTT 20.5 L D-Dimer Glucose 148 H POC Glucose (mg/dL) Troponin I 10/08/20 10/08/20 10/08/20 10:38 13:38 13:38 RBC Hct APTT D-Dimer 0.78 H Glucose POC Glucose (mg/dL) Troponin I 0.037 H* 0.053 H* 10/08/20 10/08/20 10/09/20 17:09 20:31 04:06 RBC 4.00 L Hct APTT 38.6 H D-Dimer Glucose POC Glucose (mg/dL) Troponin I 0.057 H* 10/09/20 10/09/20 10/09/20 04:06 04:06 06:20 RBC Hct APTT 35.4 H D-Dimer Glucose 144 H POC Glucose (mg/dL) 126 H Troponin I 10/09/20 10/09/20 10/09/20 07:27 11:36 11:52 RBC Hct APTT 45.4 H 46.0 H D-Dimer Glucose POC Glucose (mg/dL) 137 H Troponin I - Diagnostic Findings Chest x-ray: image reviewed Assessment and Plan Assessment: 1 Non-ST segment elevation myocardial infarction with troponin leak, under investigation, on heparin drip 2 Acute hypoxemic respiratory failure secondary to suspected congestive heart failure, diastolic versus systolic 3 Dyspnea with some possible underlying COPD 4 50+ years of chronic tobacco dependence in the form of smoking a pipe once a day, quit 4 weeks ago in Plan: The patient was seen and evaluated by Dr. De La Rosa Chest x-ray and labs reviewed Increase Lasix to 40 mg IV every 12 hours Follow-up chest x-ray in a.m. Educated regarding the importance of complete smoking cessation Echocardiogram pending Possible cardiac catheterization in the a.m. We will continue to follow and make further recommendations based on his clinical status I, the cosigning physician, performed a history & physical examination of the patient. Lungs sounds with crackles in the right. Maintaining good O2 saturations in the 90s on 2 L/m per nasal cannula. I discussed the assessment and plan of care with my nurse practitioner, Lisa Melchor. I attest to the above consultation as dictated by her. Time with Patient: Greater than 30
--- NOTE | 2020-10-09 12:56 | ECHOF ---
Referral Reason:sob MEASUREMENTS -------- HEIGHT: 177.8 cm WEIGHT: 88.0 kg BP: 136/78 RVIDd: 3.7 cm (< 3.3) IVSd: 1.0 cm (0.6 - 1.1) LVIDd: 6.4 cm (3.9 - 5.3) LVPWd: 1.1 cm (0.6 - 1.1) IVSs: 1.5 cm LVIDs: 5.2 cm LVPWs: 1.4 cm LA Diam: 4.1 cm (2.7 - 3.8) LAESV Index (A-L): 40.45 ml/m Ao Diam: 4.2 cm (2.0 - 3.7) AV Cusp: 2.2 cm (1.5 - 2.6) MV EXCURSION: 14.924 mm (> 18.000) MV EF SLOPE: 34 mm/s (70 - 150) EPSS: 1.8 cm MV E Riky: 0.82 m/s MV DecT: 158 ms MV A Riky: 0.78 m/s MV E/A Ratio: 1.06 AV maxP.31 mmHg AV meanP.36 mmHg AR PHT: 1102 ms RAP: 5.00 mmHg RVSP: 34.57 mmHg FINDINGS -------- Sinus rhythm. This was a technically good study. The left ventricle is moderately dilated. There is borderline concentric left ventricular hypertrop hy. Overall left ventricular systolic function is severely impaired with, an EF between 20 - 25 %. The right ventricle is mild to moderately enlarged. LA is severely dilated >40 ml/m2 The right atrium is normal in size. Interatrial and interventricular septum intact. There is mild to moderate aortic valve sclerosis. There is mild aortic regurgitation. There is mi ld aortic stenosis present. Peak/mean gradient across the Aortic Valve is 21.31mmHg / 11.36mmHg. Degree of aortic stenosis likely underestimated due to low flow, decreased EF. The mitral valve leaflets are mildly thickened. Mild mitral annular calcification present. Modera sb-ht-biterk mitral regurgitation is present. Mild tricuspid regurgitation present. There is mild pulmonary hypertension. The right ventricular systolic pressure, as measured by Doppler, is 34.57mmHg. Trace/mild (physiologic) pulmonic regurgitation. The aortic root is dilated measuring 4.2cm. Normal inferior vena cava with normal inspiratory collapse consistent with estimated right atrial pre ssure of 5 mmHg. There is no pericardial effusion. CONCLUSIONS -------- 1. The left ventricle is moderately dilated. 2. There is borderline concentric left ventricular hypertrophy. 3. Overall left ventricular systolic function is severely impaired with, an EF between 20 - 25 %. 4. The right ventricle is mild to moderately enlarged. 5. LA is severely dilated >40 ml/m2 6. There is mild to moderate aortic valve sclerosis. 7. There is mild aortic regurgitation. 8. There is mild aortic stenosis present. 9. Peak/mean gradient across the Aortic Valve is 21.31mmHg / 11.36mmHg. 10. Degree of aortic stenosis likely underestimated due to low flow, decreased EF. 11. The mitral valve leaflets are mildly thickened. 12. Mild mitral annular calcification present. 13. [id number] mitral regurgitation is present. 14. Mild tricuspid regurgitation present. 15. There is mild pulmonary hypertension. 16. The right ventricular systolic pressure, as measured by Doppler, is 34.57mmHg. 17. Trace/mild (physiologic) pulmonic regurgitation. 18. The aortic root is dilated measuring 4.2cm. 19. There is no pericardial effusion. CMO & PRESIDENT: Alejandra Ha RDCS
[2020-10-09] MEDS: HEPARIN SOD,PORK IN 0.45% NACL 25,000 UNIT in 0.45% NACL 1 250ML.BAG IV SCH (14:14)
[2020-10-09 16:56] LABS: Glucose,Whole Blood 111 mg/dL (75-99)
[2020-10-09] MEDS: SODIUM CHLORIDE 0.9% 1,000 ML IV SCH (17:25)
[2020-10-09] MEDS: ATORVASTATIN 80 MG TAB PO SCH (19:56)
[2020-10-10 07:41] LABS: Basophils # (A) 0.1 k/uL (0-0.2); Basophils % (A) 1 %; Eosinophils # (A) 0.2 k/uL (0-0.7); Eosinophils % (A) 2 %; HCT 33.7 % (39.0-53.0); HGB 11.7 gm/dL (13.0-17.5); Lymphocytes # (A) 1.3 k/uL (1.0-4.8); Lymphocytes % (A) 21 %; MCH 33.3 pg (25.0-35.0); MCHC 34.7 g/dL (31.0-37.0); MCV 96.1 fL (80.0-100.0); Mean Platelet Volume 7.5; Monocytes # (A) 0.6 k/uL (0-1.0); Monocytes % (A) 9 %; Neutrophils # (A) 4.1 k/uL (1.3-7.7); Neutrophils % (A) 66 %; Platelet Count 177 k/uL (150-450); RBC 3.51 m/uL (4.30-5.90); RDW 14.5 % (11.5-15.5); WBC 6.3 k/uL (3.8-10.6)
[2020-10-10 08:26] LABS: Calcium 9.2 mg/dL (8.4-10.2); Magnesium 2.2 mg/dL (1.6-2.3); Potassium 3.9 mmol/L (3.5-5.1)
--- NOTE | 2020-10-10 08:49 | XR ---
EXAMINATION TYPE: XR chest 1V portable DATE OF EXAM: 10/10/2020 COMPARISON: Chest x-ray 10/08/2020 HISTORY: Congestive heart failure TECHNIQUE: Single frontal view of the chest is obtained. FINDINGS: There is blunting of the right costophrenic angle. Heart size is prominent although the pa tient is rotated. Interstitium is increased. There is no evident pneumothorax. Central vascularity is prominent. IMPRESSION: Findings consistent with patient's history of congestive heart failure, there is right p leural effusion with associated edema or atelectasis, pneumonia not excluded.
[2020-10-10] MEDS: FUROSEMIDE 10 MG/ML 4 ML VIAL IV SCH ×2 (08:59→20:16)
[2020-10-10] MEDS: METOPROLOL TARTRATE 25 MG TAB PO SCH ×2 (08:59→20:16)
[2020-10-10] MEDS: ASPIRIN 81 MG PO SCH (08:59)
[2020-10-10] MEDS ORDERED: HEPARIN SODIUM 1,000 UN/ML (10ML VL) IV PRN (09:23)
--- NOTE | 2020-10-10 10:54 | P.PN ---
Subjective Progress Note Date: 10/10/20 No new complaints. Symptomatically improved, no dyspnea or chest pressure. Echo demonstrates reduced EF, LFLG mod-severe . Objective - Vital Signs Vital signs: Vital Signs Temp 97.8 F 10/10/20 08:00 Pulse 60 10/10/20 08:00 Resp 18 10/10/20 08:00 BP 104/59 10/10/20 08:00 Pulse Ox 98 10/10/20 08:00 Intake & Output 10/09/20 10/10/20 10/10/20 18:59 06:59 18:59 Intake Total 321.701 240.781 Balance 321.701 240.781 Weight 86.2 kg Intake: Intake, IV Titration 81.701 240.781 Amount Heparin Sod,Pork in 0.45% 81.701 240.781 NaCl 25,000 unit In 0.45 % NaCl 1 250ml.bag @ 11. 364 UNITS/KG/HR 10 mls/hr IV .Q24H [facility] Rx#: [id number] Oral 240 - Exam Gen: awake, alert HEENT: normocephalic, atraumatic, good hearing acuity, moist mucous membranes Resp: Diminished air exchange, prolonged expiratory phase with mild end expiratory wheezing, no accessory muscle use, bilateral crackles to mid chest CVS: good distal perfusion x 4, regular rate and rhythm, systolic crescendo decrescendo murmur, + JVD to mid neck in an upright position GI: soft, NTTP, ND, appropriate bowel sounds : no SPT, no CVAT, cook catheter not present MSK: no pitting edema, no clubbing Neuro: non-focal, moving all extremities Psych: cooperative, euthymic mood - Labs CBC & Chem 7: 10/10/20 07:29 10/10/20 07:29 Labs: Abnormal Lab Results - Last 24 Hours (Table) 10/09/20 10/09/20 10/09/20 Range/Units 11:36 11:52 16:54 RBC (4.30-5.90) m/uL Hgb (13.0-17.5) gm/dL Hct (39.0-53.0) % APTT 46.0 H (22.0-30.0) sec Glucose (74-99) mg/dL POC Glucose (mg/dL) 137 H 111 H (75-99) mg/dL 10/10/20 10/10/20 10/10/20 Range/Units 07:29 07:29 07:29 RBC 3.51 L (4.30-5.90) m/uL Hgb 11.7 L (13.0-17.5) gm/dL Hct 33.7 L (39.0-53.0) % APTT 42.8 H (22.0-30.0) sec Glucose 111 H (74-99) mg/dL POC Glucose (mg/dL) (75-99) mg/dL Assessment and Plan Assessment: Acute congestive heart failure exacerbation, unknown type with echo pending NSTEMI Aortic stenosis, severity unknown -Admit to telemetry -Cardiology consult -Echocardiogram EF 25-30%, mod with LFLG phenomenon, mod-severe MR -I/os, daily weights -Lasix 40 mg IV BID -Heparin drip -Aspirin loaded, aspirin daily -Metoprolol -Statin -A1c, pending -Lipid panel = TG/LDL/HDL - 74/101/46 COPD with mild acute exacerbation -DuoNeb's when necessary -Oxygen when necessary -We'll defer prednisone at this time -pulmonology following, appreciate recs Chronic back pain Tobacco use disorder -Nicotine patch if requested -Tylenol, tramadol when necessary for back pain Patient is full code On therapeutic anticoagulation is next of kin
--- NOTE | 2020-10-10 12:37 | P.PN ---
Subjective Progress Note Date: 10/10/20 Principal diagnosis: Acute non-ST elevation myocardial infarction, and acute hypoxic respiratory failure secondary to acute systolic congestive heart failure This is a very pleasant 80-year-old gentleman who follows with Dr. Wan as his primary care provider. He has no significant medical history. He does have a history of pipe smoking for greater than 50 years at usually 1 pipe per day. No previous pulmonary history. No history of asthma. No COPD or emphysema. Not on oxygen or inhalers in the outpatient setting. He presented to [facility] yesterday with some chest heaviness and shortness of breath. An EKG revealed a bundle branch block. He was given an aspirin and transferred here to the emergency room by EMS. No cough or congestion. No fever, chills or night sweats. No chest tightness or wheezing. Chest x-ray revealed some scarring/fibrosis type picture. Question of congestive heart failure. Carotid Dopplers revealed no significant stenosis. White count 10.1. Hemoglobin 13.2. Sodium 138. Potassium 4.2. Creatinine 1.11. Troponin 0.057. ProBNP 7015. Lawler virus not detected. D-dimer 0.78. He was initiated on a heparin drip. Lasix 40 mg IV daily. Echocardiogram pending. Presently, he is sitting up in a chair at the bedside. Awake and alert in no acute distress. He states he still has some lingering chest discomfort. Some dyspnea on exertion. Maintaining O2 saturations in the 90s on 2 L/m per nasal cannula. He's been afebrile. Hemodynamically stable. Patient was reevaluated today on 10/10/2020, patient is feeling about the same, however he denies shortness of breath, denies any chest pain, no fever no chills no hemoptysis, chest x-ray is basically about the same continues to show evidence of edema and pleural effusions his echocardiogram showed severe LV dysfunction, patient was seen by cardiology and he is scheduled to undergo cardiac catheterization sometime in the next few days. In the meantime the patient is on diuretics, he is also on bronchodilators, chest x-ray was reviewed and discussed with the patient. BC is relatively normal electrolytes are normal PTT is 42.8/therapeutic. Objective - Vital Signs Vital signs: Vital Signs Temp 97.6 F 10/10/20 11:09 Pulse 56 L 10/10/20 11:09 Resp 18 10/10/20 11:09 BP 112/55 10/10/20 11:09 Pulse Ox 98 10/10/20 11:09 Intake & Output 10/09/20 10/10/20 10/10/20 18:59 06:59 18:59 Intake Total 321.701 240.781 Balance 321.701 240.781 Weight 86.2 kg Intake: Intake, IV Titration 81.701 240.781 Amount Heparin Sod,Pork in 0.45% 81.701 240.781 NaCl 25,000 unit In 0.45 % NaCl 1 250ml.bag @ 11. 364 UNITS/KG/HR 10 mls/hr IV .Q24H [facility] Rx#: [id number] Oral 240 - Exam Physical Exam revealed 80-year-old white male in no distress, pleasant. Head: Atraumatic, normocephalic. HEENT:[Neck is supple.] [No neck masses.] [No thyromegaly.] [No JVD.] Chest: Diminished breath sounds and crackles at the base. At the right base..] Cardiac Exam: [Normal S1 and S2, no S3 gallop, no murmur.] Abdomen: [Soft, nontender, no megaly, no rebound, no guarding, normal bowel sounds.] Extremities: [No clubbing, no edema, no cyanosis.] Neurological Exam: [No focal neurologic deficit.] And oriented 3. Psychiatric: Normal mood affect and normal mental status examination. Skin: No rash. Musculoskeletal: No deformities and no limitation in range of motion - Labs CBC & Chem 7: 10/10/20 07:29 10/10/20 07:29 Labs: Abnormal Lab Results - Last 24 Hours (Table) 10/09/20 10/10/20 10/10/20 Range/Units 16:54 07:29 07:29 RBC 3.51 L (4.30-5.90) m/uL Hgb 11.7 L (13.0-17.5) gm/dL Hct 33.7 L (39.0-53.0) % APTT (22.0-30.0) sec Glucose 111 H (74-99) mg/dL POC Glucose (mg/dL) 111 H (75-99) mg/dL 10/10/20 Range/Units 07:29 RBC (4.30-5.90) m/uL Hgb (13.0-17.5) gm/dL Hct (39.0-53.0) % APTT 42.8 H (22.0-30.0) sec Glucose (74-99) mg/dL POC Glucose (mg/dL) (75-99) mg/dL Assessment and Plan Assessment: Impression: Acute non-ST elevation myocardial infarction Acute hypoxic respiratory failure secondary to acute systolic congestive heart failure Suspect some component of underlying COPD but presently inactive. 50 years of chronic tobacco dependence, pipe smoker quit only a few weeks ago. Recommendation: Continue oxygen and titrate accordingly. Continue treatment plan as per cardiology Continue bronchodilators. Continue diuretics. Echocardiogram report was reviewed and clearly consistent with ischemic cardiomyopathy and LV dysfunction. Agree with plans for cardiac catheterization. We'll continue to follow. Time with Patient: Less than 30
[2020-10-10] MEDS: LOSARTAN 25 MG TAB PO SCH (12:42)
[2020-10-10] MEDS: SODIUM CHLORIDE 0.9% 1,000 ML IV SCH (14:55)
[2020-10-10] MEDS: HEPARIN SOD,PORK IN 0.45% NACL 25,000 UNIT in 0.45% NACL 1 250ML.BAG IV SCH (14:58)
--- NOTE | 2020-10-10 20:10 | PN ---
PROGRESS NOTE Mr. Schaeffer presented with shortness of breath. Has what seems to be systolic heart failure. Echo revealed ejection fraction of 25%. He also has moderate aortic stenosis. Paroxysmal atrial fib on reviewing the rhythm strips. I will leave him on IV heparin and once he is more stable, I will perform coronary angiography either on Tuesday or Tuesday. For now he is more comfortable but still his shortness of breath is complete, not completely resolved. JVD is evident. S1-S2 heard normally. Ejection systolic murmur at the base. Lungs reveal fine basal rales. Abdomen is soft. Lower extremities reveal diminished pulses. Mild edema. Central nervous system is normal. RECOMMENDATIONS: Continue IV Lasix. Add losartan. Will continue IV heparin and consider cardiac catheterization in the next 48 hours. Explained to the patient risks, benefits, options, rationale. He understands and will proceed as advised. MMALEAHL / MARCOSN: [id number] /
[2020-10-10] MEDS: ATORVASTATIN 80 MG TAB PO SCH (20:16)
--- NOTE | 2020-10-11 07:32 | XR ---
EXAMINATION TYPE: XR chest 1V portable DATE OF EXAM: 10/11/2020 HISTORY: Shortness of breath. COMPARISON: 10/10/2020 TECHNIQUE: Single view of the chest is submitted. FINDINGS: Demonstrated are scattered senescent parenchymal change. Small right-sided pleural effusion. No focal infiltrates seen. The heart is stable. Hilar and mediastinal structures are within normal limits. Degenerative changes are seen of the dorsal spine. IMPRESSION: 1. Essentially stable chest.
[2020-10-11] MEDS ORDERED: ASPIRIN 325 MG TAB PO STA (07:45)
[2020-10-11] MEDS ORDERED: ALPRAZolam 0.25 MG TAB PO PRN (07:45)
[2020-10-11] MEDS ORDERED: NITROGLYCERIN SL TABS 0.4 MG TAB SUBLINGUAL PRN (07:45)
[2020-10-11] MEDS ORDERED: ALPRAZolam 0.5 MG TAB PO PRN (07:45)
[2020-10-11] MEDS: FUROSEMIDE 40 MG TAB PO SCH ×2 (09:07→15:54)
[2020-10-11] MEDS: METOPROLOL TARTRATE 25 MG TAB PO SCH ×2 (09:07→19:54)
[2020-10-11] MEDS: ASPIRIN 81 MG PO SCH (09:07)
--- NOTE | 2020-10-11 09:11 | P.PN ---
Subjective Progress Note Date: 10/11/20 No new complaints. No CP, no palps, no dyspnea. Pending [facility]. Objective - Vital Signs Vital signs: Vital Signs Temp 98.4 F 10/11/20 08:00 Pulse 65 10/11/20 08:00 Resp 22 10/11/20 08:00 BP 115/64 10/11/20 08:00 Pulse Ox 94 L 10/11/20 08:00 Intake & Output 10/10/20 10/11/20 10/11/20 18:59 06:59 18:59 Intake Total 513.342 85.048 Output Total 575 Balance 513.342 -489.952 Weight 85 kg Intake: Intake, IV Titration 273.342 85.048 Amount Heparin Sod,Pork in 0.45% 273.342 85.048 NaCl 25,000 unit In 0.45 % NaCl 1 250ml.bag @ 11. 364 UNITS/KG/HR 10 mls/hr IV .Q24H [facility] Rx#: [id number] Oral 240 Output: Urine 575 Other: Voiding Method Toilet Urinal # Voids 1 - Exam Gen: awake, alert HEENT: normocephalic, atraumatic, good hearing acuity, moist mucous membranes Resp: Diminished air exchange, prolonged expiratory phase with mild end expiratory wheezing, no accessory muscle use, bilateral crackles to mid chest CVS: good distal perfusion x 4, regular rate and rhythm, systolic crescendo decrescendo murmur, + JVD to mid neck in an upright position GI: soft, NTTP, ND, appropriate bowel sounds : no SPT, no CVAT, cook catheter not present MSK: no pitting edema, no clubbing Neuro: non-focal, moving all extremities Psych: cooperative, euthymic mood - Labs CBC & Chem 7: 10/10/20 07:29 10/10/20 07:29 Labs: Abnormal Lab Results - Last 24 Hours (Table) 10/10/20 10/10/20 10/11/20 Range/Units 16:01 22: 06:43 APTT 77.0 H 68.4 H 47.2 H (22.0-30.0) sec Assessment and Plan Assessment: Acute congestive heart failure exacerbation, unknown type with echo pending NSTEMI Aortic stenosis, severity unknown -Admit to telemetry -Cardiology consult -Echocardiogram EF 25-30%, mod with LFLG phenomenon, mod-severe MR -I/os, daily weights -Lasix 40 mg IV BID -Heparin drip -Aspirin loaded, aspirin daily -Metoprolol -Statin -A1c = 5.0% -Lipid panel = TG/LDL/HDL - 74/101/46 -[facility], pending COPD with mild acute exacerbation -DuoNeb's when necessary -Oxygen when necessary -We'll defer prednisone at this time -pulmonology following, appreciate recs Chronic back pain Tobacco use disorder -Nicotine patch if requested -Tylenol, tramadol when necessary for back pain Patient is full code On therapeutic anticoagulation is next of kin
[2020-10-11] MEDS: LOSARTAN 25 MG TAB PO SCH (12:46)
[2020-10-11] MEDS: SODIUM CHLORIDE 0.9% 1,000 ML IV SCH (12:48)
--- NOTE | 2020-10-11 13:27 | P.PN ---
Subjective Progress Note Date: 10/11/20 Principal diagnosis: Acute non-ST elevation myocardial infarction, and acute hypoxic respiratory failure secondary to acute systolic congestive heart failure This is a very pleasant 80-year-old gentleman who follows with Dr. Wan as his primary care provider. He has no significant medical history. He does have a history of pipe smoking for greater than 50 years at usually 1 pipe per day. No previous pulmonary history. No history of asthma. No COPD or emphysema. Not on oxygen or inhalers in the outpatient setting. He presented to [facility] yesterday with some chest heaviness and shortness of breath. An EKG revealed a bundle branch block. He was given an aspirin and transferred here to the emergency room by EMS. No cough or congestion. No fever, chills or night sweats. No chest tightness or wheezing. Chest x-ray revealed some scarring/fibrosis type picture. Question of congestive heart failure. Carotid Dopplers revealed no significant stenosis. White count 10.1. Hemoglobin 13.2. Sodium 138. Potassium 4.2. Creatinine 1.11. Troponin 0.057. ProBNP 7015. Lawler virus not detected. D-dimer 0.78. He was initiated on a heparin drip. Lasix 40 mg IV daily. Echocardiogram pending. Presently, he is sitting up in a chair at the bedside. Awake and alert in no acute distress. He states he still has some lingering chest discomfort. Some dyspnea on exertion. Maintaining O2 saturations in the 90s on 2 L/m per nasal cannula. He's been afebrile. Hemodynamically stable. Patient was reevaluated today on 10/10/2020, patient is feeling about the same, however he denies shortness of breath, denies any chest pain, no fever no chills no hemoptysis, chest x-ray is basically about the same continues to show evidence of edema and pleural effusions his echocardiogram showed severe LV dysfunction, patient was seen by cardiology and he is scheduled to undergo cardiac catheterization sometime in the next few days. In the meantime the patient is on diuretics, he is also on bronchodilators, chest x-ray was reviewed and discussed with the patient. BC is relatively normal electrolytes are normal PTT is 42.8/therapeutic. Reevaluated today on 10/11/2020, patient remains on the cardiac floor, relatively asymptomatic, my understanding is the patient will be undergoing cardiac catheterization today later this afternoon. In the meantime the patient is doing great, asymptomatic, is at bedside. Denies any cough wheezing shortness of breath, denies any chest pain. Patient told me today that his feeling much better today compared to the last 2 days. Chest x-ray is showing improvement in his interstitial edema and pleural effusion. Objective - Vital Signs Vital signs: Vital Signs Temp 98.2 F 10/11/20 12:00 Pulse 65 10/11/20 12:00 Resp 18 10/11/20 12:00 BP 108/65 10/11/20 12:00 Pulse Ox 97 10/11/20 12:00 Intake & Output 10/10/20 10/11/20 10/11/20 18:59 06:59 18:59 Intake Total 513.342 85.048 Output Total 575 Balance 513.342 -489.952 Weight 85 kg Intake: Intake, IV Titration 273.342 85.048 Amount Heparin Sod,Pork in 0.45% 273.342 85.048 NaCl 25,000 unit In 0.45 % NaCl 1 250ml.bag @ 11. 364 UNITS/KG/HR 10 mls/hr IV .Q[facility]H [facility] Rx#: [id number] Oral 240 Output: Urine 575 Other: Voiding Method Toilet Urinal # Voids 1 - Exam Physical Exam revealed 80-year-old white male in no distress, pleasant. On room air. Head: Atraumatic, normocephalic. HEENT:[Neck is supple.] [No neck masses.] [No thyromegaly.] [No JVD.] Chest: Diminished breath sounds and crackles at the base. At the right base..] Cardiac Exam: [Normal S1 and S2, no S3 gallop, no murmur.] Abdomen: [Soft, nontender, no megaly, no rebound, no guarding, normal bowel sounds.] Extremities: [No clubbing, no edema, no cyanosis.] Neurological Exam: [No focal neurologic deficit.] And oriented 3. Psychiatric: Normal mood affect and normal mental status examination. Skin: No rash. Musculoskeletal: No deformities and no limitation in range of motion - Labs CBC & Chem 7: 10/10/20 07:29 10/10/20 07:29 Labs: Abnormal Lab Results - Last 24 Hours (Table) 10/10/20 10/10/20 10/11/20 Range/Units 16:01 22:21 06:43 APTT 77.0 H 68.4 H 47.2 H (22.0-30.0) sec Assessment and Plan Assessment: Impression: Acute non-ST elevation myocardial infarction. The patient is scheduled for cardiac catheterization today. Acute hypoxic respiratory failure secondary to acute systolic congestive heart failure, improving, patient is now on Coumadin. And chest x-ray is showing improvement. Suspect some component of underlying COPD but presently inactive. 50 years of chronic tobacco dependence, pipe smoker quit only a few weeks ago. Ischemic cardiomyopathy and LV dysfunction as noted on echocardiogram Recommendation: Agree with cardiac catheterization. Continue treatment plan as per cardiology Continue bronchodilators. Continue diuretics. We'll continue to follow. Time with Patient: Less than 30
[2020-10-11] MEDS: ATORVASTATIN 80 MG TAB PO SCH (19:54)
--- NOTE | 2020-10-11 20:01 | PN ---
PROGRESS NOTE DATE OF SERVICE: 10/11/2020. [id number]: Mr. Schaeffer is in is in sinus rhythm with PVCs. He does have episodes of paroxysmal atrial fibrillation. He has congestive heart failure which has improved and also COPD. Patient is a smoker. He has what seems to be an LV dysfunction and significant aortic stenosis but the gradient may be underestimated. PHYSICAL EXAM: JVD is not evident. S1-S2 heard normally. Ejection systolic murmur is audible. Second heart sound is preserved. Lungs reveal diminished air entry, but no rales. Abdomen is soft. Lower extremities reveal diminished pulses. Central system is normal. IMPRESSION: 1. CHF, systolic. 2. Moderate aortic stenosis. 3. History of COPD. RECOMMENDATIONS: I am recommending coronary angiography which will be performed either today or tomorrow. Rationale, risks, benefits, options were explained. Patient understands and wishes to proceed. MMODL / IJN: [id number] /
[2020-10-12] MEDS: ASPIRIN 81 MG PO SCH (06:01)
[2020-10-12] MEDS: METOPROLOL TARTRATE 25 MG TAB PO SCH ×2 (06:01→21:05)
[2020-10-12] MEDS ORDERED: HEPARIN SODIUM,PORCINE 10,000 UNIT in SODIUM CHLORIDE 0.9% 1,000 ML IRRIGATION PRN (07:00)
[2020-10-12] MEDS ORDERED: HEPARIN SODIUM,PORCINE 2,500 UNIT in SODIUM CHLORIDE 0.9% 250 ML IRRIGATION PRN (07:00)
[2020-10-12] MEDS: FUROSEMIDE 40 MG TAB PO SCH (08:37)
--- NOTE | 2020-10-12 09:56 | P.PN ---
Subjective Progress Note Date: 10/12/20 No new complaints today. Pending LHC/RHC Objective - Vital Signs Vital signs: Vital Signs Temp 97.8 F 10/12/20 08:00 Pulse 58 L 10/12/20 08:00 Resp 18 10/12/20 08:00 BP 124/65 10/12/20 08:00 Pulse Ox 96 10/12/20 08:00 Intake & Output 10/11/20 10/12/20 10/12/20 18:59 06:59 18:59 Intake Total 0 240 Output Total 250 Balance 0 -10 Weight 81.5 kg Intake: Oral 0 240 Output: Urine 250 Other: Voiding Method Toilet Urinal # Voids 1 - Exam Gen: awake, alert HEENT: normocephalic, atraumatic, good hearing acuity, moist mucous membranes Resp: Diminished air exchange, prolonged expiratory phase with mild end expiratory wheezing, no accessory muscle use, bilateral crackles to mid chest CVS: good distal perfusion x 4, regular rate and rhythm, systolic crescendo decrescendo murmur, + JVD to mid neck in an upright position GI: soft, NTTP, ND, appropriate bowel sounds : no SPT, no CVAT, cook catheter not present MSK: no pitting edema, no clubbing Neuro: non-focal, moving all extremities Psych: cooperative, euthymic mood - Labs CBC & Chem 7: 10/10/20 07:29 10/10/20 07:29 Assessment and Plan Assessment: Acute congestive heart failure exacerbation, unknown type with echo pending NSTEMI Aortic stenosis, severity unknown -Admit to telemetry -Cardiology consult -Echocardiogram EF 25-30%, mod with LFLG phenomenon, mod-severe MR -I/os, daily weights -Lasix 40 mg IV BID -Heparin drip -Aspirin loaded, aspirin daily -Metoprolol -Statin -A1c = 5.0% -Lipid panel = TG/LDL/HDL - 74/101/46 -[facility], pending COPD with mild acute exacerbation -DuoNeb's when necessary -Oxygen when necessary -We'll defer prednisone at this time -pulmonology following, appreciate recs Chronic back pain Tobacco use disorder -Nicotine patch if requested -Tylenol, tramadol when necessary for back pain Patient is full code On therapeutic anticoagulation is next of kin
[2020-10-12] MEDS ORDERED: ASPIRIN 325 MG TAB PO STA (10:59)
--- NOTE | 2020-10-12 11:56 | PN ---
PROGRESS NOTE Mr. Schaeffer is in sinus rhythm with left bundle. He has heart failure, high aortic stenosis, COPD. He also had a non-ST elevation [facility]. I am recommending that we will perform coronary angiography today. Procedure was postponed because of an emergency yesterday. EXAMINATION: Vitals are stable. JVD 1 cm, no carotid bruit. S1-S2 heard normally, with ejection systolic murmur noted at the base. Lungs reveal improved air entry. Abdomen and lower extremity exam unchanged. PLAN: Plan is to continue current medications. Cardiac catheterization today. MMODL / IJN: [id number] /
[2020-10-12] MEDS: LOSARTAN 25 MG TAB PO SCH (12:27)
[2020-10-12] MEDS ORDERED: VERAPAMIL 2.5 MG/ML 2 ML AMP ONE (12:58)
[2020-10-12] MEDS ORDERED: LIDOCAINE 1% INJ 10MG/ML (20 ML MDV) ONE (12:59)
--- NOTE | 2020-10-12 13:15 | P.PN ---
Subjective Progress Note Date: 10/12/20 Principal diagnosis: Acute non-ST segment elevation myocardial infarction with acute exacerbation of systolic congestive heart This is a very pleasant 80-year-old gentleman who follows with Dr. Wan as his primary care provider. He has no significant medical history. He does have a history of pipe smoking for greater than 50 years at usually 1 pipe per day. No previous pulmonary history. No history of asthma. No COPD or emphysema. Not on oxygen or inhalers in the outpatient setting. He presented to [facility] yesterday with some chest heaviness and shortness of breath. An EKG revealed a bundle branch block. He was given an aspirin and transferred here to the [facility] room by EMS. No cough or congestion. No fever, chills or night sweats. No chest tightness or wheezing. Chest x-ray revealed some scarring/fibrosis type picture. Question of congestive heart failure. Carotid Dopplers revealed no significant stenosis. White count 10.1. Hemoglobin 13.2. Sodium 138. Potassium 4.2. Creatinine 1.11. Troponin 0.057. ProBNP 7015. Lawler virus not detected. D-dimer 0.78. He was initiated on a heparin drip. Lasix 40 mg IV daily. Echocardiogram pending. Presently, he is sitting up in a chair at the bedside. Awake and alert in no acute distress. He states he still has some lingering chest discomfort. Some dyspnea on exertion. Maintaining O2 saturations in the 90s on 2 L/m per nasal cannula. He's been afebrile. Hemodynamically stable. Patient was reevaluated today on 10/10/2020, patient is feeling about the same, however he denies shortness of breath, denies any chest pain, no fever no chills no hemoptysis, chest x-ray is basically about the same continues to show evidence of edema and pleural effusions his echocardiogram showed severe LV dysfunction, patient was seen by cardiology and he is scheduled to undergo cardiac catheterization sometime in the next few days. In the meantime the patient is on diuretics, he is also on bronchodilators, chest x-ray was reviewed and discussed with the patient. BC is relatively normal electrolytes are normal PTT is 42.8/therapeutic. Reevaluated today on 10/11/2020, patient remains on the cardiac floor, relatively asymptomatic, my understanding is the patient will be undergoing cardiac catheterization today later this afternoon. In the meantime the patient is doing great, asymptomatic, is at bedside. Denies any cough wheezing shortness of breath, denies any chest pain. Patient told me today that his feeling much better today compared to the last 2 days. Chest x-ray is showing improvement in his interstitial edema and pleural effusion. The patient is seen today 10/12/2020 in follow-up on the selective care unit. He is currently sitting up in a chair at the bedside. Awake and alert in no acute distress. He denies any worsening shortness of breath, cough or quin estion. Maintaining O2 saturations in the 90s on room air. He denies any chest pain, palpitations lightheadedness or dizziness. The plan is for cardiac catheterization later today. He remains on a heparin drip for now. Continued on oral diuretics. Objective - Vital Signs Vital signs: Vital Signs Temp 97.6 F 10/12/20 12:00 Pulse 57 L 10/12/20 12:00 Resp 20 10/12/20 12:00 BP 129/73 10/12/20 12:00 Pulse Ox 97 10/12/20 12:00 Intake & Output 10/11/20 10/12/20 10/12/20 18:59 06:59 18:59 Intake Total 0 240 Output Total 250 250 Balance 0 -10 -250 Weight 81.5 kg Intake: Oral 0 240 Output: Urine 250 250 Other: Voiding Method Toilet Urinal # Voids 1 - Exam GENERAL EXAM: Alert, pleasant 80-year-old gentleman, on room air, comfortable in no apparent distress. HEAD: Normocephalic. EYES: Normal reaction of pupils, equal size. NOSE: Clear with pink turbinates. THROAT: No erythema or exudates. NECK: No masses, no JVD. CHEST: No chest wall deformity. LUNGS: Equal air entry with crackles in the right lung base. CVS: S1 and S2 normal with no audible murmur, regular rhythm. ABDOMEN: No hepatosplenomegaly, normal bowel sounds, no guarding or rigidity. SPINE: No scoliosis or deformity SKIN: No rashes CENTRAL NERVOUS SYSTEM: No focal deficits, tone is normal in all 4 extremities. EXTREMITIES: There is no peripheral edema. No clubbing, no cyanosis. Peripheral pulses are intact. - Labs CBC & Chem 7: 10/10/20 07:29 10/10/20 07:29 Assessment and Plan Assessment: 1 Non-ST segment elevation myocardial infarction with troponin leak, under investigation, on heparin drip 2 Acute hypoxemic respiratory failure secondary to suspected congestive heart failure, diastolic versus systolic 3 Dyspnea with some possible underlying COPD 4 50+ years of chronic tobacco dependence in the form of smoking a pipe once a day, quit 4 weeks ago in Plan: The patient was seen and evaluated by Dr. Estrella Rae from the pulmonary standpoint, on room air Possible cardiac catheterization later today We will continue to follow I, the cosigning physician, performed a history & physical examination of the patient. Lungs sounds with crackles in the right. Maintaining good O2 saturations in the 90s on room air. I discussed the assessment and plan of care with my nurse practitioner, Lisa Melchor. I attest to the above note as dictated by her.
[2020-10-12] MEDS ORDERED: LIDOCAINE 1% INJ 10MG/ML (20 ML MDV) SQ ONE (13:21)
[2020-10-12] MEDS ORDERED: HEPARIN SODIUM 1,000 UN/ML (10ML VL) ONE (13:22)
[2020-10-12] MEDS ORDERED: MIDAZOLAM 2 MG/2 ML VIAL IV ONE (13:24)
[2020-10-12] MEDS ORDERED: HEPARIN SODIUM 1,000 UN/ML (10ML VL) IV ONE (13:25)
[2020-10-12] MEDS ORDERED: VERAPAMIL SYRINGE (5 MG/10 ML) INTRAARTER ONE (13:25)
[2020-10-12] MEDS ORDERED: IOPAMIDOL-370 100ML BTL INJ ONE (13:38)
[2020-10-12] MEDS ORDERED: IV FLUID CONTINUATION 400 ML IV ONE (13:39)
[2020-10-12] MEDS: SODIUM CHLORIDE 0.9% 1,000 ML IV SCH (16:08)
[2020-10-12] MEDS: FUROSEMIDE 20 MG TAB PO SCH (16:09)
--- NOTE | 2020-10-12 19:00 | CC ---
CARDIAC CATHETERIZATION REPORT DATE OF SERVICE: 10/12/2020. PROCEDURE PERFORMED: Coronary angiography. PERFORMED BY: Dr. Jan Coe. SEDATION: Moderate conscious sedation time was 20 minutes. Patient was administered Versed. Oxygen saturation, hemodynamics and EKG were monitored closely. CLINICAL INFORMATION: Mr. Schaeffer is an 80-year-old elderly gentleman who came into the hospital with shortness of breath, was found to have exacerbation of COPD and systolic heart failure. Ejection fraction was less than 35%. Patient also had short runs of paroxysmal atrial fibrillation. Clinically, had moderate aortic stenosis, but it was underestimated on echo because of the low cardiac output. He was advised cardiac cath to rule out any obstructive CAD because of his heart failure to evaluate further etiology of his cardiomyopathy. Risks, benefits, options, rationale were explained to the patient and . They understood all details and wished to proceed with the procedure. PROCEDURE NOTE: Under local anesthesia and strict aseptic precautions, a 6-Ukrainian introducer was placed in the right radial artery. A JR4 and JL3.5 catheters were used to perform coronary angiography. I did not cross the aortic valve. The sheath was taken out and TR band applied as per protocol and patient was sent to the room in stable condition. CORONARY ANGIOGRAPHY FINDINGS: RIGHT CORONARY ARTERY: Small nondominant vessel. Limited amount of myocardium being supplied by it. LEFT MAIN CORONARY ARTERY: Short, patent vessel, free of significant disease. Bifurcates into LAD and circumflex. LEFT ANTERIOR DESCENDING CORONARY ARTERY: Good caliber vessel extends along the anterior wall. It gives off a large diagonal branch very proximally that runs in the same LAD distribution and then the LAD continues onwards. There is mild to moderate diffuse disease in the entire LAD is as it runs towards the apex and there are lesions of anywhere from 35% to 50%. The LAD gives off 2 small diagonal branches. The first diagonal which is the proximal diagonal is large in caliber distribution has minor irregularities. The LAD itself has diffuse disease anywhere from 35% to 50%. The 2 small diagonal branches also have diffuse disease. LEFT POSTERIOR CIRCUMFLEX CORONARY ARTERY: This is a very dominant vessel. No significant disease, gives off 2 large obtuse marginal proximally. A small obtuse marginal mid and distally bifurcates into a large PDA and PLV, both of which supply a sizable amount of myocardium. There is mild calcification. No significant disease in the entire circumflex system. LEFT VENTRICULOGRAM was not performed. LV was not crossed. FINAL IMPRESSION: This patient has a left dominant system, moderate diffuse disease in the LAD, but no significant stenosis. The right is small nondominant. Circumflex is large dominant, has minor irregularities. No significant disease. RECOMMENDATIONS: I am recommending medical therapy. No coronary intervention. The patient probably has a nonischemic cardiomyopathy. We will optimize management and discharge him tomorrow. Results were discussed with the patient, and son. YANG / MARCOSN: [id number] /
[2020-10-12] MEDS: ATORVASTATIN 80 MG TAB PO SCH (19:55)
[2020-10-13] MEDS: ASPIRIN 81 MG PO SCH (08:42)
[2020-10-13] MEDS: FUROSEMIDE 20 MG TAB PO SCH (08:42)
[2020-10-13] MEDS: METOPROLOL TARTRATE 25 MG TAB PO SCH (08:43)
[2020-10-13] MEDS ORDERED: APIXABAN 5 MG TAB PO SCH (09:45)
[2020-10-13 10:53] VITALS: RESP 16
--- NOTE | 2020-10-13 12:59 | P.PN ---
Subjective Progress Note Date: 10/13/20 HISTORY OF PRESENT ILLNESS: This is an 80-year-old male with a past medical history significant for nicotine dependence. 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 Patient had an echocardiogram completed revealing ejection fraction 20-25%, mild aortic regurgitation, mild aortic stenosis, moderate to severe mitral regurgitation and mild tricuspid regurgitation. Patient underwent cardiac catheterization yesterday with Dr. Coe revealing moderate diffuse disease in the LAD but no significant stenosis. Medical management was recommended. The patient has been in and out of A. fib during hospitalization. This morning the patient went into A. fib with RVR. Patient received his metoprolol and converted into sinus mechanism with a heart rate in the 60s. It is noted that when the patient is in sinus mechanism he tends to be bradycardic with heart rate down into the 40s and 50s. PHYSICAL EXAM: VITAL SIGNS: Reviewed. GENERAL: Well-developed in no acute distress. NECK: Supple. No JVD or thyromegaly LUNGS: Respirations even and unlabored. Lungs essentially clear to auscultation bilaterally. HEART: Regular rate and rhythm. S1 and S2 heard. Systolic murmur noted. EXTREMITIES: Normal range of motion. No clubbing or cyanosis. Peripheral pulses intact. No lower extremity edema. Right radial cath site with pulse present ASSESSMENT: Non-STEMI Acute systolic heart failure Nonischemic cardiomyopathy New-onset paroxysmal atrial fibrillation with RVR Valvular heart disease Hypertension COPD Chronic nicotine dependence PLAN: Begin Eliquis 5 mg twice a day Continue additional cardiac medications Continue current dose of metoprolol despite patient having an episode of RVR this morning as patient is bradycardic with heart rate in the 50s when he is in sinus rhythm. Further recommendations pending patient's course Nurse practitioner note has been reviewed by physician. Signing provider agrees with the documented findings, assessment, and plan of care. Objective - Vital Signs Vital signs: Vital Signs Temp 98.2 F 10/13/20 08:30 Pulse 150 H 10/13/20 08:30 Resp 16 10/13/20 08:30 BP 108/65 10/13/20 08:30 Pulse Ox 94 L 10/13/20 08:30 Intake & Output 10/12/20 10/13/20 10/13/20 18:59 06:59 18:59 Intake Total 100 0 Output Total 250 Balance -150 0 Weight 81 kg Intake: IV 100 Oral 0 Output: Urine 250 Other: Voiding Method Toilet Urinal # Voids 1 - Labs CBC & Chem 7: 10/10/20 07:29 10/10/20 07:29
[2020-10-13 13:16] VITALS: BP 105/62; PULSE 61; TEMP 98.1
[2020-10-13] MEDS: LOSARTAN 25 MG TAB PO SCH (13:17)
[2020-10-13] MEDS: SODIUM CHLORIDE 0.9% 1,000 ML IV SCH (13:17)
--- NOTE | 2020-10-13 14:25 | P.DS ---
Providers Date of admission: 10/08/20 13:13 Expected date of discharge: 10/13/20 Attending physician: Carmelina Mcfarland MD Consults: 10/08/20 13:13 Consult Physician Urgent Consulting Provider: Tera Coe Consult Reason/Comments: Elevated troponin, chest pain, unstable angina, CHF Do you want consulting provider notified?: Already Contacted 10/09/20 07:56 Consult Physician Routine Consulting Provider: James De La Rosa Consult Reason/Comments: COPD Do you want consulting provider notified?: Yes Primary care physician: [facility] Course: 80-year-old man, current smoker, history of chronic back pain presented with chest pressure and shortness of breath. Patient says that his symptoms started last night when he went to bed, and as he lied down, he noticed an immediate shortness of breath. This dyspnea did improve positionally. Today, patient had trouble with chest pressure, and continued to have difficulty with dyspnea. Based on the symptoms he was concerned enough to go to urgent care, and was recommended to come to the emergency room via EMS. During our interview, patient denied chest pain, fevers, chills, nausea, vomiting, palpitations, co ugh, syncope, presyncope, abdominal pain, consultation, diarrhea, dysuria, numbness/weakness. In the emergency room, patient was noted to have oxygen requirement of 2 L saturating 97%, 132/79, heart rate 76. Lab work was concerning for elevated troponin of 0.037, elevated BNP of 7050. Troponin later trended to 0.053. Chest x-ray demonstrated changes of pulmonary vascular congestion, pulmonary edema, pleural effusions bilaterally. EKG demonstrated sinus rhythm with left bundle-branch block. Cardiology was counseled by the emergency room, hospitalist service was asked to admit the patient. Acute congestive heart failure exacerbation, EF 25-30% NSTEMI Aortic stenosis, severity unknown Nonocclusive CAD Paroxysmal atrial fibrillation, rate controlled Patient was admitted to telemetry. Cardiology consultation on the patient. Echocardiogram was obtained and demonstrated EF of 25-30%, moderate severe aortic stenosis with a low-flow low gradient phenomenon, moderate to severe mitral regurgitation. Patient was treated with Lasix IV, and improved from 2 L of nasal cannula back to room air. Patient was also treated with NSTEMI with heparin drip, aspirin, statin, metoprolol. His risk factors include lipid panel, A1c were evaluated and medications were titrated appropriately. Given newly diagnosed reduction in ejection fraction, left heart cath was recommended. Patient had nonocclusive coronary artery disease. Notably, his telemetry demonstrated evidence of paroxysmal atrial fibrillation during his hospitalization. Patient was scheduled to follow-up with cardiology as an outpatient for further management. His new medications included Eliquis, Lasix, Lipitor, aspirin, losartan, metoprolol COPD with mild acute exacerbation Tobacco use disorder Given patient's extensive history of tobacco use disorder, as well as computed tomography scan findings and physical exam findings compatible with COPD, patient was treated for mild exacerbation with DuoNeb's as needed. Patient was seen in consultation by the pulmonary medicine team. Prednisone, antibiotics were deferred. Patient will require follow-up in the outpatient setting for pulmonary function test through PCP referral. Chronic back pain Patient was treated with Tylenol when necessary and tramadol when necessary. On discharge no changes to his medications were made. I spent 40 minutes coordinating this complex discharge. Assessment: Gen: awake, alert HEENT: normocephalic, atraumatic, good hearing acuity, moist mucous membranes Resp: Diminished air exchange, prolonged expiratory phase with mild end expiratory wheezing, no accessory muscle use, bilateral crackles to mid chest CVS: good distal perfusion x 4, regular rate and rhythm, systolic crescendo decrescendo murmur, + JVD to mid neck in an upright position GI: soft, NTTP, ND, appropriate bowel sounds : no SPT, no CVAT, cook catheter not present MSK: no pitting edema, no clubbing Neuro: non-focal, moving all extremities Psych: cooperative, euthymic mood Patient Condition at Discharge: Good Plan - Discharge Summary New Discharge Prescriptions: New Apixaban [Eliquis] 5 mg PO BID #60 tab Furosemide [Lasix] 20 mg PO BID@0900,1600 #60 tab Atorvastatin [Lipitor] 80 mg PO HS #30 tab Aspirin 81 mg PO DAILY #30 chew Losartan [Cozaar] 25 mg PO DAILY #30 tab Metoprolol Tartrate [Lopressor] 25 mg PO BID #60 tab Continue traMADol HCL 50 mg PO BID PRN PRN Reason: Pain Discontinued Ibuprofen [Advil] 200 mg PO Q8HR PRN PRN Reason: Pain Discharge Medication List traMADol HCL 50 mg PO BID PRN 10/08/20 [History] Apixaban [Eliquis] 5 mg PO BID #60 tab 10/13/20 [Rx] Aspirin 81 mg PO DAILY #30 chew 10/13/20 [Rx] Atorvastatin [Lipitor] 80 mg PO HS #30 tab 10/13/20 [Rx] Furosemide [Lasix] 20 mg PO BID@0900,1600 #60 tab 10/13/20 [Rx] Losartan [Cozaar] 25 mg PO DAILY #30 tab 10/13/20 [Rx] Metoprolol Tartrate [Lopressor] 25 mg PO BID #60 tab 10/13/20 [Rx] Follow up Appointment(s)/Referral(s): Tera Coe MD [STAFF PHYSICIAN] - 1 Week Isabella Wan MD [Primary Care Provider] - 1-2 days Patient Instructions/Handouts: Heart Failure (ER) Activity/Diet/Wound Care/Special Instructions: Eliquis script in [place] - copay $33 Discharge Disposition: HOME SELF-CARE
== END 2020-10-13 15:20 | disposition home or self-care (01) | DRG 280 ==
LOC: EC 09:35 → 3SCARD 13:13
PROVIDERS: ADMIT Internal Medicine; ATTEND Internal Medicine
PROC: 4A023N7 Measurement of Cardiac Sampling and Pressure, Left Heart, Percutaneous Approach (ICD-10-PCS; principal; 2020-10-12 13:00)
PROC: B2111ZZ Fluoroscopy of Multiple Coronary Arteries using Low Osmolar Contrast (ICD-10-PCS; principal; 2020-10-12 13:00)
DX: I21.4 Non-ST elevation (NSTEMI) myocardial infarction (principal); I50.21 Acute systolic (congestive) heart failure; J96.01 Acute respiratory failure with hypoxia; J44.1 Chronic obstructive pulmonary disease with (acute) exacerbation; I42.8 Other cardiomyopathies; I48.0 Paroxysmal atrial fibrillation; I25.5 Ischemic cardiomyopathy; F17.290 Nicotine dependence, other tobacco product, uncomplicated; I25.10 Atherosclerotic heart disease of native coronary artery without angina pectoris; I08.0 Rheumatic disorders of both mitral and aortic valves; G89.29 Other chronic pain; M54.9 Dorsalgia, unspecified; Z20.822 Contact with and (suspected) exposure to COVID-19; I11.0 Hypertensive heart disease with heart failure; I44.7 Left bundle-branch block, unspecified; Z79.01 Long term (current) use of anticoagulants; Z79.82 Long term (current) use of aspirin
CPT/HCPCS: 36415; 71045; 71046; 80048; 80053; 80061; 82550; 83036; 83735; 83880; 84484; 85025; 85379; 85610; 85730; 87635; 93005; 93306; 93458; 93880; 94640; 94760; 96374; 99291

== ENCOUNTER 2021-05-01 08:52 | Observation (INO) | payer MEDICARE, OTHER ==
[2021-05-01 09:40] LABS: Basophils % (A) 1 %; Eosinophils # (A) 0.2 k/uL (0-0.7); Eosinophils % (A) 4 %; HCT 31.8 % (39.0-53.0); Lymphocytes # (A) 1.2 k/uL (1.0-4.8); Lymphocytes % (A) 19 %; MCH 33.4 pg (25.0-35.0); MCHC 34.7 g/dL (31.0-37.0); MCV 96.3 fL (80.0-100.0); Mean Platelet Volume 7.8; Monocytes # (A) 0.4 k/uL (0-1.0); Monocytes % (A) 7 %; Neutrophils # (A) 4.3 k/uL (1.3-7.7); Neutrophils % (A) 68 %; Platelet Count 170 k/uL (150-450); RDW 13.9 % (11.5-15.5); WBC 6.4 k/uL (3.8-10.6)
[2021-05-01 09:56] LABS: ALT 14 U/L (4-49); AST 21 U/L (17-59); African American GFR (CKD) 49 (>60 ml/min/1.73 sqM); Albumin 4.2 g/dL (3.5-5.0); Alkaline Phosphatase 96 U/L (38-126); Anion Gap 10 mmol/L; Blood Urea Nitrogen 25 mg/dL (9-20); C Reactive Protein <0.5 mg/dL (<1.0); Calcium 9.5 mg/dL (8.4-10.2); Carbon Dioxide 25 mmol/L (22-30); Chloride 105 mmol/L (98-107); Glucose 133 mg/dL (74-99); LDH 403 U/L (313-618); Magnesium 2.2 mg/dL (1.6-2.3); Non-African American GFR(CKD) 42 (>60 ml/min/1.73 sqM); Potassium 3.9 mmol/L (3.5-5.1); Sodium 140 mmol/L (137-145); Total Protein 7.4 g/dL (6.3-8.2)
[2021-05-01 09:57] LABS: Partial Thromboplastin Time 23.8 sec (22.0-30.0); Prothrombin Time 10.8 sec (9.0-12.0)
--- NOTE | 2021-05-01 10:05 | XR ---
EXAMINATION TYPE: XR chest 2V DATE OF EXAM: 05/01/2021 COMPARISON: 11/05/2020 TECHNIQUE: PA and lateral views submitted. HISTORY: Shortness of breath FINDINGS: Heart is enlarged and there is hyperinflation with subsegmental changes at the lung base on the left. No pneumothorax. No interstitial edema. Arthropathy of the shoulders. Hypertrophic and degenerative change of the spine. IMPRESSION: 1. COPD with cardiomegaly favor basilar atelectasis over pneumonia correlate clinically.
[2021-05-01] MEDS ORDERED: IPRATROPIUM-ALBUTEROL 3 ML NEB INHALATION STA (10:30)
--- NOTE | 2021-05-01 10:31 | ED ---
SOB HPI - General Chief Complaint: Shortness of Breath Stated Complaint: SOB, Cardiac issues, weakness Time Seen by Provider: 05/01/21 09:00 Source: patient, family, RN notes reviewed Mode of arrival: wheelchair Limitations: no limitations - History of Present Illness Initial Comments: Patient is a 81-year-old male that presents to the emergency department complaining of shortness of breath starting over the past several days. He notes he was recently diagnosed with CHF. 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 Patient denied any fevers nausea vomiting diarrhea. He was otherwise well- appearing. Patient came emergently get evaluated. He is fully vaccinated for Covid. She denied any chest pain only admitting to mild chest heaviness along with some shortness of breath. He denied any headache nausea vomiting diarrhea constipation fever fatigue chills. - Related Data Home Medications Medication Instructions Recorded Confirmed traMADol HCL 50 mg PO DAILY PRN 10/08/20 05/01/21 Apixaban [Eliquis] 5 mg PO BID@0700,1600 05/01/21 05/01/21 Atorvastatin [Lipitor] 80 mg PO DAILY@1600 05/01/21 05/01/21 Furosemide [Lasix] 20 mg PO BID@0700,1200 05/01/21 05/01/21 Losartan Potassium 50 mg PO HS 05/01/21 05/01/21 Metoprolol Tartrate [Lopressor] 25 mg PO DAILY@0700 05/01/21 05/01/21 Allergies Allergy/AdvReac Type Severity Reaction Status Date / Time No Known Allergies Allergy Verified 05/01/21 10:49 Review of Systems ROS Statement: Those systems with pertinent positive or pertinent negative responses have been documented in the HPI. ROS Other: All systems not noted in ROS Statement are negative. Past Medical History Past Medical History: No Reported History History of Any Multi-Drug Resistant Organisms: None Reported Past Surgical History: No Surgical Hx Reported Past Psychological History: No Psychological Hx Reported Smoking Status: Light tobacco smoker Past Alcohol Use History: None Reported Past Drug Use History: None Reported General Exam Limitations: no limitations General appearance: alert, in no apparent distress Head exam: Present: atraumatic, normocephalic, normal inspection Eye exam: Present: normal appearance, PERRL, EOMI. Absent: scleral icterus, conjunctival injection, periorbital swelling ENT exam: Present: normal exam, mucous membranes moist Neck exam: Present: normal inspection Respiratory exam: Present: normal lung sounds bilaterally. Absent: respiratory distress, wheezes, rales, rhonchi, stridor Cardiovascular Exam: Present: regular rate, normal rhythm. Absent: rubs, gall op, clicks GI/Abdominal exam: Present: soft, normal bowel sounds. Absent: distended, tenderness, guarding, rebound, rigid Extremities exam: Present: normal inspection, full ROM, normal capillary refill. Absent: tenderness, pedal edema, joint swelling, calf tenderness Neurological exam: Present: alert, oriented X3 Psychiatric exam: Present: normal affect, normal mood Skin exam: Present: warm, dry, intact, normal color. Absent: rash Course Vital Signs 05/01/21 05/01/21 05/01/21 08:53 10:51 10:58 Temperature 97.6 F Pulse Rate 73 56 L 58 L Respiratory 18 Rate Blood Pressure 126/74 O2 Sat by Pulse 98 Oximetry Medical Decision Making - Medical Decision Making 81-year-old male complaining of shortness of breath mild chest tenderness in the past several days. Labs, EKG, chest x-ray ordered. Labs: CBC unremarkable, clotting factors unremarkable CMP unremarkable patient is a negative for Covid and influenza. Chest x-ray shows COPD with mild cardiomegaly. Case discussed with Dr. Bowie. Patient will be admitted. Tianna Kimbrough was consulted from [facility] and accepted the admit with cardiology on consult. - Lab Data Result diagrams: 05/01/21 09:16 05/01/21 09:16 Lab Results 05/01/21 05/01/21 05/01/21 Range/Units 09:16 09:16 09:16 WBC 6.4 (3.8-10.6) k/uL RBC 3.30 L (4.30-5.90) m/uL Hgb 11.0 L (13.0-17.5) gm/dL Hct 31.8 L (39.0-53.0) % MCV 96.3 (80.0-100.0) fL MCH 33.4 (25.0-35.0) pg MCHC 34.7 (31.0-37.0) g/dL RDW 13.9 (11.5-15.5) % Plt Count 170 (150-450) k/uL MPV 7.8 Neutrophils % 68 % Lymphocytes % 19 % Monocytes % 7 % Eosinophils % 4 % Basophils % 1 % Neutrophils # 4.3 (1.3-7.7) k/uL Lymphocytes # 1.2 (1.0-4.8) k/uL Monocytes # 0.4 (0-1.0) k/uL Eosinophils # 0.2 (0-0.7) k/uL Basophils # 0.0 (0-0.2) k/uL PT 10.8 (9.0-12.0) sec INR 1.0 (<1.2) APTT 23.8 (22.0-30.0) sec D-Dimer 0.30 (<0.60) mg/L FEU Sodium 140 (137-145) mmol/L Potassium 3.9 (3.5-5.1) mmol/L Chloride 105 (98-107) mmol/L Carbon Dioxide 25 (22-30) mmol/L Anion Gap 10 mmol/L BUN 25 H (9-20) mg/dL Creatinine 1.52 H (0.66-1.25) mg/dL Est GFR (CKD-EPI)AfAm 49 (>60 ml/min/1.73 sqM) Est GFR (CKD-EPI)NonAf 42 (>60 ml/min/1.73 sqM) Glucose 133 H (74-99) mg/dL Plasma Lactic Acid Lyndon (0.7-2.0) mmol/L Calcium 9.5 (8.4-10.2) mg/dL Magnesium 2.2 (1.6-2.3) mg/dL Total Bilirubin 1.0 (0.2-1.3) mg/dL AST 21 (17-59) U/L ALT 14 (4-49) U/L Alkaline Phosphatase 96 (38-126) U/L Lactate Dehydrogenase 403 (313-618) U/L Troponin I (0.000-0.034) ng/mL C-Reactive Protein <0.5 (<1.0) mg/dL Total Protein 7.4 (6.3-8.2) g/dL Albumin 4.2 (3.5-5.0) g/dL Coronavirus (PCR) (Not Detectd) Influenza Type A RNA (Not Detectd) Influenza Type B (PCR) (Not Detectd) 05/01/21 05/01/21 05/01/21 Range/Units 09:16 09:16 09:16 WBC (3.8-10.6) k/uL RBC (4.30-5.90) m/uL Hgb (13.0-17.5) gm/dL Hct (39.0-53.0) % MCV (80.0-100.0) fL MCH (25.0-35.0) pg MCHC (31.0-37.0) g/dL RDW (11.5-15.5) % Plt Count (150-450) k/uL MPV Neutrophils % % Lymphocytes % % Monocytes % % Eosinophils % % Basophils % % Neutrophils # (1.3-7.7) k/uL Lymphocytes # (1.0-4.8) k/uL Monocytes # (0-1.0) k/uL Eosinophils # (0-0.7) k/uL Basophils # (0-0.2) k/uL PT (9.0-12.0) sec INR (<1.2) APTT (22.0-30.0) sec D-Dimer (<0.60) mg/L FEU Sodium (137-145) mmol/L Potassium (3.5-5.1) mmol/L Chloride (98-107) mmol/L Carbon Dioxide (22-30) mmol/L Anion Gap mmol/L BUN (9-20) mg/dL Creatinine (0.66-1.25) mg/dL Est GFR (CKD-EPI)AfAm (>60 ml/min/1.73 sqM) Est GFR (CKD-EPI)NonAf (>60 ml/min/1.73 sqM) Glucose (74-99) mg/dL Plasma Lactic Acid Lyndon 1.0 (0.7-2.0) mmol/L Calcium (8.4-10.2) mg/dL Magnesium (1.6-2.3) mg/dL Total Bilirubin (0.2-1.3) mg/dL AST (17-59) U/L ALT (4-49) U/L Alkaline Phosphatase (38-126) U/L Lactate Dehydrogenase (313-618) U/L Troponin I 0.017 (0.000-0.034) ng/mL C-Reactive Protein (<1.0) mg/dL Total Protein (6.3-8.2) g/dL Albumin (3.5-5.0) g/dL Coronavirus (PCR) Not Detected (Not Detectd) Influenza Type A RNA (Not Detectd) Influenza Type B (PCR) (Not Detectd) 05/01/21 Range/Units 09:16 WBC (3.8-10.6) k/uL RBC (4.30-5.90) m/uL Hgb (13.0-17.5) gm/dL Hct (39.0-53.0) % MCV (80.0-100.0) fL MCH (25.0-35.0) pg MCHC (31.0-37.0) g/dL RDW (11.5-15.5) % Plt Count (150-450) k/uL MPV Neutrophils % % Lymphocytes % % Monocytes % % Eosinophils % % Basophils % % Neutrophils # (1.3-7.7) k/uL Lymphocytes # (1.0-4.8) k/uL Monocytes # (0-1.0) k/uL Eosinophils # (0-0.7) k/uL Basophils # (0-0.2) k/uL PT (9.0-12.0) sec INR (<1.2) APTT (22.0-30.0) sec D-Dimer (<0.60) mg/L FEU Sodium (137-145) mmol/L Potassium (3.5-5.1) mmol/L Chloride (98-107) mmol/L Carbon Dioxide (22-30) mmol/L Anion Gap mmol/L BUN (9-20) mg/dL Creatinine (0.66-1.25) mg/dL Est GFR (CKD-EPI)AfAm (>60 ml/min/1.73 sqM) Est GFR (CKD-EPI)NonAf (>60 ml/min/1.73 sqM) Glucose (74-99) mg/dL Plasma Lactic Acid Lyndon (0.7-2.0) mmol/L Calcium (8.4-10.2) mg/dL Magnesium (1.6-2.3) mg/dL Total Bilirubin (0.2-1.3) mg/dL AST (17-59) U/L ALT (4-49) U/L Alkaline Phosphatase (38-126) U/L Lactate Dehydrogenase (313-618) U/L Troponin I (0.000-0.034) ng/mL C-Reactive Protein (<1.0) mg/dL Total Protein (6.3-8.2) g/dL Albumin (3.5-5.0) g/dL Coronavirus (PCR) (Not Detectd) Influenza Type A RNA Not Detected (Not Detectd) Influenza Type B (PCR) Not Detected (Not Detectd) - EKG Data -: EKG Interpreted by Wi EKG shows normal: sinus rhythm Rate: normal EKG Comments: Ventricular rate 61 bpm, MT interval 210 ms QRS duration 160 ms, QTC 487 ms, sinus rhythm with first-degree AV block with premature supraventricular comple xes, left bundle branch block, abnormal ECG. Similar to previous EKGs. - Radiology Data Radiology results: report reviewed, image reviewed X-ray: COPD with cardiomegaly favor basilar atelectasis over pneumonia. Disposition Clinical Impression: Congestive heart failure, Shortness of breath Disposition: ADMITTED IP TO THIS HOSP Condition: Stable Is patient prescribed a controlled substance at d/c from ED?: No Referrals: None,Stated [Primary Care Provider] - 1-2 days Time of Disposition: 11:11
[2021-05-01] MEDS ORDERED: NALOXONE 0.4 MG/ML 1 ML VIAL IV PRN (11:12)
[2021-05-01] MEDS: SODIUM CHLORIDE 0.9% 1,000 ML IV SCH ×2 (12:05→23:06)
[2021-05-01] MEDS ORDERED: traMADol 50 MG TAB PO PRN (15:27)
[2021-05-01] MEDS: APIXABAN 5 MG TAB PO SCH (15:37)
[2021-05-01] MEDS: ATORVASTATIN 80 MG TAB PO SCH (15:37)
[2021-05-01] MEDS ORDERED: TEMAZEPAM 15 MG CAP PO PRN (17:16)
[2021-05-01] MEDS ORDERED: ALPRAZolam 0.25 MG TAB PO PRN (17:16)
[2021-05-01] MEDS ORDERED: IPRATROPIUM-ALBUTEROL 3 ML NEB INHALATION PRN (17:16)
[2021-05-01] MEDS: methylPREDNISolone SOD SUCCI 125 MG/2 ML VIAL IV SCH ×2 (17:59→23:05)
--- NOTE | 2021-05-01 19:50 | HP ---
HISTORY AND PHYSICAL CHIEF COMPLAINT: Shortness of breath. HISTORY OF PRESENT ILLNESS: This 81-year-old gentleman with a past medical history of multiple medical problems, atrial fibrillation, CHF, COPD, not being followed by any primary care physician, apparently by a delivery nurse in the outpatient setting is complaining of some shortness of breath. The patient also has some vague chest discomfort. The patient was symptomatic for the last 3 days. The patient does not have any fever, nausea, diarrhea. Patient came to [facility] and admitted to the hospital for further evaluation and treatment. On admission last hemoglobin 11.8. D-dimer was 0.38, glucose 113. Otherwise Covid 19 and influenza negative. The BNP is not available at this time and the chest x-ray which was reviewed personally by me showed COPD, cardiomegaly and some basilar atelectasis. PAST MEDICAL HISTORY: History of atrial fibrillation, CHF, COPD. MEDICATIONS: Home medications are: Ultram, metoprolol, losartan, Lasix Lipitor, Eliquis, doses reviewed. ALLERGIES: None. FAMILY HISTORY: No history of heart disease or strokes in the family. SOCIAL HISTORY: Light smoker. No history of alcohol intake. REVIEW OF SYSTEMS: ENT: Diminished vision. Diminished hearing. CARDIOVASCULAR as mentioned earlier. RESPIRATORY: As mentioned earlier. GI: No nausea or vomiting. : No dysuria. NERVOUS SYSTEM: No numbness or weakness. ALLERGY/IMMUNOLOGY: No asthma or hayfever. MUSCULOSKELETAL: As mentioned earlier. HEMATOLOGY/ONCOLOGY: No history of anemia. ENDOCRINE: No history of diabetes mellitus or hypothyroidism. CONSTITUTIONAL: As mentioned earlier. DERMATOLOGY: Negative. RHEUMATOLOGY: Negative. PSYCHIATRIC: As mentioned earlier. PHYSICAL EXAMINATION: Alert and oriented times three. Pulse 53, blood pressure 128/60, respirations 16, temperature 97.9, pulse ox 99% on room air. HEENT: Conjunctivae normal. NECK: No JVD. CARDIOVASCULAR; S1, S2 muffled. RESPIRATORY: Breath sounds diminished in the bases. A few scattered rhonchi and crackles. ABDOMEN: Soft, nontender. No mass palpable. LEGS: No edema. No swelling. NERVOUS SYSTEM: Higher functions as mentioned earlier. Moves all four limbs. No focal deficits. LYMPHATICS: No lymph nodes palpable in the neck, axillae or groin. SKIN: No ulcer. No rashes and no bleeding. JOINTS: No active deforming arthropathy. LABS: WBC 9 hemoglobin 11 6. Creatinine is the creatinine 1.52. The baseline creatinine is normal. ASSESSMENT: 1. Shortness of breath for evaluation possible chronic obstructive pulmonary disease acute exacerbation, rule out unstable angina and anginal equivalent. 2. Congestive heart failure unlikely. 3. Renal failure, acute renal failure. 4. Anemia, normocytic. 5. History of atrial fibrillation. 6. History of congestive heart failure. 7. History of chronic obstructive pulmonary disease. 8. History of cardiac catheterization. 9. History of nicotine dependence. 10.FULL CODE. RECOMMENDATIONS AND DISCUSSION: This 81-year-old gentleman who presented with multiple complex medical issues, we will monitor the patient closely, continue the current medications, management and symptomatic treatment. I would recommend continue IV fluids, cautiously andbronchodilator treatment. Otherwise, cardiology consultation. Rule out the possibility of acute coronary syndrome. Prognosis guarded. Further recommendations to follow. Otherwise, we will closely monitor. See orders for details. MMODL / IJN: [id number] / MTDD
[2021-05-01] MEDS: IPRATROPIUM-ALBUTEROL 3 ML NEB INHALATION SCH (20:30)
[2021-05-01] MEDS: SYMBICORT 160-4.5 MCG INHALER INHALATION SCH (20:31)
[2021-05-01] MEDS: LOSARTAN 50 MG TAB PO SCH (21:02)
[2021-05-02] MEDS: methylPREDNISolone SOD SUCCI 125 MG/2 ML VIAL IV SCH ×3 (06:02→17:46)
[2021-05-02] MEDS ORDERED: METOPROLOL TARTRATE 25 MG TAB PO SCH (07:00)
[2021-05-02] MEDS: SYMBICORT 160-4.5 MCG INHALER INHALATION SCH ×2 (08:32→20:41)
[2021-05-02] MEDS: IPRATROPIUM-ALBUTEROL 3 ML NEB INHALATION SCH ×4 (08:32→20:41)
[2021-05-02] MEDS: APIXABAN 5 MG TAB PO SCH ×2 (08:48→15:44)
[2021-05-02] MEDS: PANTOPRAZOLE 40 MG TABLET PO SCH (08:48)
--- NOTE | 2021-05-02 10:38 | P.CRDCN ---
History of Present Illness Consult date: 05/02/21 Consult reason: shortness of breath History of present illness: The patient is an 81-year-old female patient with past medical history of coronary artery disease, tobacco use, nonischemic cardiomyopathy, paroxysmal atrial fibrillation, hypertension, valvular heart disease, who presented to the hospital with new onset of shortness of breath. He denies any had any chest pain on arrival. He also denies having any heart racing or fluttering, di zziness or lightheadedness, or recent illness. DIAGNOSTICS: EKG shows sinus rhythm with left bundle branch block and PACs Chest x-ray shows COPD with basilar atelectasis Lab data: WBC 6.4, hemoglobin 11.0, hematocrit 31.8, platelet 170, d-dimer 0.3, sodium 140, potassium 3.9, BUN 25, creatinine 1.52, magnesium 2.2, AST 21, ALT 14, troponin 0.017, BNP 2140, villagran virus and influenza testing negative Echocardiogram reveals EF at 20-25% with anterior wall hypokinesis and moderate aortic stenosis PAST MEDICAL HISTORY: COPD, coronary artery disease, nonischemic myopathy, PAF, hypertension, valvular heart disease REVIEW OF SYSTEMS: No fever or chills. No cough or expectoration. No diaphoresis . Patient denies headache, dizziness, blurred vision, double vision. Patient denies any stomach discomfort. No nausea, vomiting. No hematochezia. No hematemesis. Denies any black stools or blood in his stools. Denies dysuria or hematuria. No muscle weakness or numbness. PHYSICAL EXAMINATION: This is a 81-year-old male in no apparent distress at the time of my examination. HEENT: Head is atraumatic, normocephalic. Pupils are equal, round. Sclerae anicteric. Conjunctivae are clear. Mucous membranes of the mouth are moist. Neck is supple. There is no jugular venous distention. CHEST EXAMINATION: Lungs are clear to auscultation. No chest wall tenderness is noted on palpation or with deep breathing. HEART EXAMINATION: Heart regular rate and rhythm. S1, S2 heard. Systolic murmur. No gallops or rub. ABDOMEN: Soft, nontender. Bowel sounds are heard. No organomegaly noted. EXTREMITIES: 2+ peripheral pulses with no evidence of peripheral edema and no calf tenderness noted. NEUROLOGIC EXAMINATION: Patient is awake, alert and oriented x3. Difficulty with hearing FINAL ASSESSMENT AND PLAN: Congestive heart failure, stop IV fluids and start oral Lasix History of nonischemic cardiomyopathy, recent echo shows low EF at 20-25% History of coronary artery disease, continue Eliquis History of paroxysmal atrial fibrillation, continue Eliquis History of valvular heart disease, moderate aortic stenosis PLAN: Switch to carvediolol 3.125mg for cardiomyopathy Start spironolactone 25mg daily Continue daily weights Daily monitoring of creatinine and electrolytes Further recommendations will be based upon clinical course The patient has been seen and evaluated by nurse practitioner and coordinating physician. Plan of care has been reviewed and agreed upon by Dr Solorzano. Past Medical History Past Medical History: Atrial Fibrillation, Heart Failure, COPD History of Any Multi-Drug Resistant Organisms: None Reported Past Surgical History: Heart Catheterization Past Psychological History: No Psychological Hx Reported Smoking Status: Light tobacco smoker Past Alcohol Use History: None Reported Past Drug Use History: None Reported Medications and Allergies Home Medications Medication Instructions Recorded Confirmed Type traMADol HCL 50 mg PO DAILY PRN 10/08/20 05/01/21 History Apixaban [Eliquis] 5 mg PO BID@0700,1600 05/01/21 05/01/21 History Atorvastatin [Lipitor] 80 mg PO DAILY@1600 05/01/21 05/01/21 History Furosemide [Lasix] 20 mg PO BID@0700,1200 05/01/21 05/01/21 History Losartan Potassium 50 mg PO HS 05/01/21 05/01/21 History Metoprolol Tartrate [Lopressor] 25 mg PO DAILY@0700 05/01/21 05/01/21 History Allergies Allergy/AdvReac Type Severity Reaction Status Date / Time No Known Allergies Allergy Verified 05/01/21 10:49 Physical Exam Vitals: Vital Signs Temp Pulse Pulse Resp BP BP Pulse Ox 05/02/21 08:41 78 05/02/21 08:32 76 05/02/21 02:22 98.2 F 74 18 134/67 99 05/02/21 02:00 62 16 05/01/21 20:45 62 05/01/21 20:31 60 05/01/21 19:41 16 05/01/21 19:10 98.6 F 62 17 138/70 98 05/01/21 15:00 97.9 F 53 L 16 128/67 99 05/01/21 12:30 98 F 63 16 140/83 98 05/01/21 11:40 61 16 123/65 97 05/01/21 10:58 58 L 05/01/21 10:51 56 L Intake and Output 05/01/21 05/02/21 05/02/21 22:59 06:59 14:59 Intake Total 500 Balance 500 Intake: Oral 500 Other: Voiding Method Toilet Toilet # Voids 1 2 Results 05/01/21 09:16 05/01/21 09:16 Cardiac Enzymes 05/01/21 05/01/21 Range/Units 09:16 09:16 AST 21 (17-59) U/L Lactate Dehydrogenase 403 (313-618) U/L Troponin I 0.017 (0.000-0.034) ng/mL Coagulation 05/01/21 Range/Units 09:16 PT 10.8 (9.0-12.0) sec APTT 23.8 (22.0-30.0) sec Comprehensive Metabolic Panel 05/01/21 Range/Units 09:16 Sodium 140 (137-145) mmol/L Potassium 3.9 (3.5-5.1) mmol/L Chloride 105 (98-107) mmol/L Carbon Dioxide 25 (22-30) mmol/L BUN 25 H (9-20) mg/dL Creatinine 1.52 H (0.66-1.25) mg/dL Glucose 133 H (74-99) mg/dL Calcium 9.5 (8.4-10.2) mg/dL AST 21 (17-59) U/L ALT 14 (4-49) U/L Alkaline Phosphatase 96 (38-126) U/L Total Protein 7.4 (6.3-8.2) g/dL Albumin 4.2 (3.5-5.0) g/dL Current Medications Generic Name Dose Route Start Last Admin Trade Name Freq PRN Reason Stop Dose Admin Albuterol/Ipratropium 3 ml 05/01/21 20:00 05/02/21 08:32 Ipratropium-Albuterol 3 Ml Neb INHALATION 3 ml RT-QID SHAKIR Administration Albuterol/Ipratropium 3 ml 05/01/21 17:16 Ipratropium-Albuterol 3 Ml Neb INHALATION RT-QID PRN Shortness Of Breath Or Wheezing Alprazolam 0.25 mg 05/01/21 17:16 Alprazolam 0.25 Mg Tab PO TID PRN Anxiety Apixaban 5 mg 05/01/21 16:00 05/02/21 08:48 Apixaban 5 Mg Tab PO 5 mg BID@0700,1600 SHAKIR Administration Protocol Atorvastatin Calcium 80 mg 05/01/21 16:00 05/01/21 15:37 Atorvastatin 80 Mg Tab PO 80 mg DAILY@1600 SHAKIR Administration Budesonide/Formoterol Fumarate 2 puff 05/01/21 20:00 05/02/21 08:32 Symbicort 160-4.5 Mcg Inhaler INHALATION 2 puff RT-BID SHAKIR Administration Sodium Chloride 1,000 mls @ 75 mls/hr 05/01/21 11:15 05/01/21 23:06 Saline 0.9% IV 75 mls/hr .[id number] SHAKIR Administration Losartan Potassium 50 mg 05/01/21 21:00 05/01/21 21:02 Losartan 50 Mg Tab PO 50 mg HS SHAKIR Administration Methylprednisolone Sodium Succinate 60 mg 05/01/21 18:00 05/02/21 06:02 Methylprednisolone Sod Succi 125 Mg/2 Ml Vial IV 60 mg Q6HR SHAKIR Administration Metoprolol Tartrate 25 mg 05/02/21 07:00 05/02/21 08:47 Metoprolol Tartrate 25 Mg Tab PO 25 mg DAILY@0700 SHAKIR Administration Naloxone HCl 0.2 mg 05/01/21 11:12 Naloxone 0.4 Mg/Ml 1 Ml Vial IV Q2M PRN Opioid Reversal Pantoprazole Sodium 40 mg 05/02/21 07:30 05/02/21 08:48 Pantoprazole 40 Mg Tablet PO 40 mg [id number] SHAKIR Administration Temazepam 15 mg 05/01/21 17:16 Temazepam 15 Mg Cap PO HS PRN Insomnia Tramadol HCl 50 mg 05/01/21 15:27 Tramadol 50 Mg Tab PO DAILY PRN Pain Intake and Output 05/01/21 05/02/21 05/02/21 22:59 06:59 14:59 Intake Total 500 Balance 500 Intake: Oral 500 Other: Voiding Method Toilet Toilet # Voids 1 2 05/01/21 09:16 05/01/21 09:16
--- NOTE | 2021-05-02 11:00 | ECHOF ---
Referral Reason:chest pain MEASUREMENTS -------- HEIGHT: 182.9 cm WEIGHT: 86.6 kg BP: 134/67 IVSd: 1.2 cm (0.6 - 1.1) LVIDd: 4.6 cm (3.9 - 5.3) LVPWd: 1.3 cm (0.6 - 1.1) EDV(Teich): 99 ml IVSs: 1.7 cm LVIDs: 3.5 cm LVPWs: 1.7 cm %IVS Thck: 38 % ESV(Teich): 52 ml EF(Teich): 47 % %FS: 24 % SV(Teich): 47 ml LA Diam: 3.9 cm (2.7 - 3.8) RVIDd: 3.4 cm (< 3.3) LALs A4C: 5.3 cm LAAs A4C: 17.3 cm LAESV A-L A4C: 48 ml LAESV MOD A4C: 45 ml LALs A2C: 5.7 cm LAAs A2C: 19.5 cm LAESV A-L A2C: 56 ml LAESV MOD A2C: 54 ml LAESV(A-L): 54 ml LAESV Index (A-L): 25.99 ml/m Ao Diam: 4.4 cm (2.0 - 3.7) AV Cusp: 1.9 cm (1.5 - 2.6) EPSS: 1.4 cm MV DecT: 187 ms MV PHT: 38 ms MVA By PHT: 5.8 cm LVOT Vmax: 0.76 m/s LVOT maxP.33 mmHg AV Vmax: 3.53 m/s AV maxP.92 mmHg AV Vmax: 3.47 m/s AV Vmean: 2.45 m/s AV maxP.33 mmHg AV meanP.58 mmHg AV Env.Ti: 323 ms AV VTI: 79.3 cm AR Vmax: 3.03 m/s AR maxP.70 mmHg AR PHT: 1184 ms AR Dec Time: 4081 ms AR Dec [place]: 0.7 m/s TR Vmax: 2.35 m/s TR maxP.07 mmHg RAP: 5.00 mmHg RVSP: 27.07 mmHg MV EF SLOPE: 27.15 mm/s (70 - 150) MV EXCURSION: 9.76 mm (> 18.000) FINDINGS -------- This was a technically adequate study. The left ventricular size is normal. There is mild concentric left ventricular hypertrophy. Overa ll left ventricular systolic function is severely impaired with, an EF between 20 - 25 %. The right ventricle is normal in size. Normal LA size by volume 22+/-6 ml/m2. The right atrium is normal in size. There is moderate aortic valve sclerosis. There is mild aortic regurgitation. There is moderate a ortic stenosis present. Peak/mean gradient across the Aortic Valve is 48.33mmHg / 27.58mmHg. Mild mitral annular calcification present. There is trace mitral regurgitation. Mild tricuspid regurgitation present. Right ventricular systolic pressure is normal at < 35 mmHg. Trace/mild (physiologic) pulmonic regurgitation. 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 IVC Not well visulized. There is no pericardial effusion. CONCLUSIONS -------- 1. The left ventricular size is normal. 2. There is mild concentric left ventricular hypertrophy. 3. Overall left ventricular systolic function is severely impaired with, an EF between 20 - 25 %. 4. There is moderate aortic valve sclerosis. 5. There is mild aortic regurgitation. 6. There is moderate aortic stenosis present. 7. Peak/mean gradient across the Aortic Valve is 48.33mmHg / 27.58mmHg. 8. Mild mitral annular calcification present. 9. There is trace mitral regurgitation. 10. Mild tricuspid regurgitation present. 11. Trace/mild (physiologic) pulmonic regurgitation. 12. 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 13. There is no pericardial effusion. TESTER [employer]MATURE [employer] FIELDS: Alejandra Ha, MOHITCS
[2021-05-02 12:22] LABS: African American GFR (CKD) 58.5 (60.0-200.0); Albumin 4.2 g/dL (3.8-4.9); Albumin/Globulin Ratio 1.68 (1.60-3.17); Anion Gap 12.4 mmol/L (10.00-18.00); BUN/Creat Ratio 19.15 Ratio (12.00-20.00); Blood Urea Nitrogen 24.9 mg/dL (9.0-27.0); Calcium 9.3 mg/dL (8.7-10.3); Carbon Dioxide 20.6 mmol/L (20.0-27.5); Globulin 2.5 g/dL (1.6-3.3); Non-African American GFR(CKD) 50.5 (60.0-200.0); Potassium 4.2 mmol/L (3.5-5.5); Total Bilirubin 0.7 mg/dL (0.30-1.20); Total Protein 6.7 g/dL (6.2-8.2)
[2021-05-02] MEDS: SPIRONOLACTONE 25 MG TAB PO SCH (13:26)
[2021-05-02 13:41] LABS: Basophils # (A) 0.01 X 10*3/uL (0.00-0.10); Basophils % (A) 0.1 %; Eosinophils # (A) 0 X 10*3/uL (0.04-0.35); Eosinophils % (A) 0 %; HCT 30.9 % (39.6-50.0); HGB 10.3 g/dL (13.0-17.0); Lymphocytes # (A) 0.61 X 10*3/uL (0.90-5.00); Lymphocytes % (A) 8.1 %; MCH 32.5 pg (27.0-32.0); MCHC 33.3 g/dL (32.0-37.0); MCV 97.5 fL (80.0-97.0); Monocytes # (A) 0.11 X 10*3/uL (0.20-1.00); Monocytes % (A) 1.5 %; Neutrophils # (A) 6.73 X 10*3/uL (1.80-7.70); Neutrophils % (A) 89.8 %; Platelet Count 160 X 10*3/uL (140-440); RBC 3.17 X 10*6/uL (4.40-5.60); RDW 13.7 % (11.5-14.5)
[2021-05-02] MEDS: ATORVASTATIN 80 MG TAB PO SCH (15:44)
--- NOTE | 2021-05-02 16:09 | PN ---
PROGRESS NOTE DATE OF SERVICE: 05/02/2021 This 81-year-old gentleman who was admitted with shortness of breath is being closely monitored. Possibly combination of CHF and COPD. No chest pain. No palpitations. 2D echo noted. Cardiology following the patient closely. PHYSICAL EXAMINATION: Alert and oriented x3. Pulse is 78, blood pressure is 140/69, respiration 17, temperature 97.9, pulse ox 98% on room air. HEENT: Conjunctivae normal. NECK: No JVD. Cardiovascular: S1, S2 muffled. Respiration: Few scattered rhonchi. Abdomen: Soft. Nervous system: No focal deficits. LABS: Hemoglobin 10.3. Other labs are noted. ASSESSMENT: 1. Shortness of breath, possibly multifactorial, chronic obstructive pulmonary disease, acute exacerbation as well as congestive heart failure, acute exacerbation. 2. Acute on chronic systolic dysfunction 25 to 30%. 3. Renal failure, acute renal failure. 4. Anemia, normocytic. 5. History of atrial fibrillation. 6. History of congestive heart failure. 7. History of chronic obstructive pulmonary disease. 8. History of cardiac catheterization. 9. History of nicotine dependence. 10.Moderate aortic stenosis. 11.FULL CODE. RECOMMENDATIONS AND DISCUSSION: Continue current medications, symptomatic treatment. Otherwise, closely follow with Cardiology. Monitor fluid and electrolyte balance. Continue the bronchodilators. Ejection fraction was found to be 20 to 25%. Moderate aortic valve sclerosis also noted with mild aortic regurgitation, moderate aortic stenosis also present. Otherwise prognosis guarded. Further recommendations to follow. YANG / MARCOSN: [id number] /
[2021-05-02] MEDS: carvediloL 3.125 MG TAB PO SCH (17:46)
[2021-05-02] MEDS: LOSARTAN 50 MG TAB PO SCH (20:57)
--- NOTE | 2021-05-02 22:39 | DS ---
DISCHARGE SUMMARY FINAL DIAGNOSES: 1. Shortness of breath, possibly multifactorial, with chronic obstructive pulmonary disease, acute exacerbation, as well as congestive heart failure, acute exacerbation, acute on chronic systolic dysfunction, ejection fraction 20% to 25%. 2. Rule out coronary artery disease. 3. Acute renal failure. 4. Normocytic anemia. 5. History of atrial fibrillation. 6. History of congestive heart failure. 7. Chronic obstructive pulmonary disease. 8. History of cardiac catheterization. 9. History of nicotine dependence. 10.FULL CODE. DISCHARGE DISPOSITION: The patient will be discharged in stable condition with guarded prognosis. HISTORY OF PRESENT ILLNESS: This 81-year-old gentleman with a past medical history of multiple medical problems was admitted with shortness of breath, COPD, acute exacerbation, CHF, acute exacerbation, which were managed. Cardiology saw the patient. NT proBNP was found to be 2140 and COVID-19 was negative. Patient improved significantly. Patient is keen on going home at this time. Creatinine improved to 1.3. On examination, vitals are stable. CARDIOVASCULAR: S1, S2 muffled. ABDOMEN: Soft. NERVOUS SYSTEM: No focal deficit. DISCHARGE ADVICE AND MEDICATIONS: 1. Diet is cardiac. 2. Activity limited until followup. 3. Follow up with Dr. Barraza in 2-3 days. CBC, BMP. 4. Follow up with Cardiology as recommended. 5. Eliquis 5 mg p.o. b.i.d. 6. Lasix 20 mg p.o. b.i.d. 7. Lipitor 80 mg daily. 8. Lopressor 25 mg daily. 9. Losartan at bedtime. 10.Ultram p.r.n. 11.Combivent q.i.d. and p.r.n. 12.Prednisone taper: 40 mg daily for 3 days, 30 mg daily for 3 days, 20 mg daily for 3 days, 10 mg for 3 days. 13.Symbicort 160/4.5 two puffs b.i.d. Once again, the patient will be discharged in stable condition with guarded prognosis. Outpatient pulmonary consultation also may be sought in case of non-improvement. MMODL / IJN: [id number] / MTDD
[2021-05-03] MEDS: methylPREDNISolone SOD SUCCI 125 MG/2 ML VIAL IV SCH ×2 (00:05→05:32)
[2021-05-03 07:20] VITALS: BP 143/76; RESP 16; TEMP 97.9
[2021-05-03] MEDS: APIXABAN 5 MG TAB PO SCH (08:35)
[2021-05-03] MEDS: PANTOPRAZOLE 40 MG TABLET PO SCH (08:36)
[2021-05-03] MEDS: SPIRONOLACTONE 25 MG TAB PO SCH (08:36)
[2021-05-03] MEDS: carvediloL 3.125 MG TAB PO SCH (08:36)
[2021-05-03] MEDS: SYMBICORT 160-4.5 MCG INHALER INHALATION SCH (08:57)
[2021-05-03] MEDS: IPRATROPIUM-ALBUTEROL 3 ML NEB INHALATION SCH ×2 (08:57→12:13)
[2021-05-03 09:09] VITALS: PULSE 79
[2021-05-03] MEDS ORDERED: carvediloL 3.125 MG TAB PO STA (10:49)
--- NOTE | 2021-05-03 11:20 | P.PN ---
Subjective Progress Note Date: 05/03/21 The patient states he did well overnight. He denies any difficulty breathing or chest discomfort. He states he overall feels much better since "giving up spicy food." According to nursing staff he is confused and is very eager to get home. Echocardiogram yesterday revealed low ejection fraction at 25%. This is consistent with previous readings and he does follow up outpatient with Dr. LAVONNE Coe. We switched him to carvedilol for his cardiomyopathy and he tolerated 2 doses without issue. GENERAL: Well-appearing, well-nourished and in no acute distress. NECK: Supple without JVD or thyromegaly. LUNGS: Breath sounds clear to auscultation bilaterally. Respiration equal and unlabored. No wheezes, rales or rhonchi. HEART: Regular rate and rhythm. Systolic murmur. S1 and S2 heard. EXTREMITIES: Normal range of motion, no edema. No clubbing or cyanosis. Peripheral pulses intact and strong. VITALS: Blood pressure 143/76, pulse 81, temp 97.9F, respiratory rate 16, SpO2 99% on room air TELEMETRY: Sinus rhythm IMPRESSION: Congestive heart failure Nonischemic cardiomyopathy, EF 20-25% Coronary artery disease Paroxysmal atrial fibrillation, on anticoagulation Aortic stenosis PLAN: Additional 3.125 mg of carvedilol today Discharge the patient on carvedilol 6.25 twice daily Patient may do be discharged from the cardiac standpoint Patient should follow-up with primary fruit and vegetable classer in 1-2 weeks The patient has been seen and evaluated by nurse practitioner and coordinating physician. Plan of care has been reviewed and agreed upon by Dr Solorzano. Objective - Vital Signs Vital signs: Vital Signs Temp 97.9 F 05/03/21 07:00 Pulse 79 05/03/21 09:08 Resp 16 05/03/21 07:00 BP 143/76 05/03/21 07:00 Pulse Ox 99 05/03/21 07:00 Intake & Output 05/02/21 05/03/21 05/03/21 18:59 06:59 18:59 Intake Total 180 Balance 180 Intake: Intake, IV Titration 0 Amount Sodium Chloride 0.9% 1, 0 000 ml @ 75 mls/hr IV . [id number] SHAKIR Rx#:[id number] Oral 180 Other: Voiding Method Toilet # Voids 2 - Labs CBC & Chem 7: 05/02/21 06:45 05/02/21 06:45 Labs: Abnormal Lab Results - Last 24 Hours (Table) 05/02/21 05/02/21 Range/Units 06:45 06:45 RBC 3.17 L (4.40-5.60) X 10*6/uL Hgb 10.3 L (13.0-17.0) g/dL Hct 30.9 L (39.6-50.0) % MCV 97.5 H (80.0-97.0) fL MCH 32.5 H (27.0-32.0) pg Lymphocytes # 0.61 L (0.90-5.00) X 10*3/uL Monocytes # 0.11 L (0.20-1.00) X 10*3/uL Eosinophils # 0 L (0.04-0.35) X 10*3/uL Est GFR (CKD-EPI)AfAm 58.5 L (60.0-200.0) Est GFR (CKD-EPI)NonAf 50.5 L (60.0-200.0) Glucose 174 H (70-110) mg/dL
--- NOTE | 2021-05-03 21:28 | DS ---
DISCHARGE SUMMARY DATE OF SERVICE: 05/03/2021. ADDENDUM: This 81-year-old gentleman admitted with shortness of breath, possible COPD and CHF exacerbation, being closely monitored. Cardiology cleared the patient for discharge. Please refer to my previous dictation for list of medications and diagnosis. Cardiology recommended increase Coreg to 6.25 mg p.o. b.i.d. EXAM: Vitals stable. Cardiovascular: S1, S2. Abdomen soft. Nervous system: No focal signs. MMODL / IJN: [id number] /
== END 2021-05-03 12:25 | disposition home or self-care (01) ==
LOC: EC 08:52 → 6NMEDSUR 11:16
PROVIDERS: ADMIT Hospitalist; ATTEND Hospitalist
DX: J44.1 Chronic obstructive pulmonary disease with (acute) exacerbation (principal); I11.0 Hypertensive heart disease with heart failure; I50.23 Acute on chronic systolic (congestive) heart failure; N17.9 Acute kidney failure, unspecified; I48.0 Paroxysmal atrial fibrillation; I42.8 Other cardiomyopathies; I44.7 Left bundle-branch block, unspecified; I49.1 Atrial premature depolarization; I08.2 Rheumatic disorders of both aortic and tricuspid valves; I44.0 Atrioventricular block, first degree; J98.11 Atelectasis; I25.10 Atherosclerotic heart disease of native coronary artery without angina pectoris; D64.9 Anemia, unspecified; F17.200 Nicotine dependence, unspecified, uncomplicated; Z20.822 Contact with and (suspected) exposure to COVID-19; Z79.01 Long term (current) use of anticoagulants; Z79.899 Other long term (current) drug therapy
CPT/HCPCS: 96376 ×3; 96374; 99285; 36415; 94640 ×6; 93005; 93306; 85379; 83880; 80053 ×2; 83605; 83615; 83735; 84484; 85025 ×2; 85610; 85730; 86140; 87502; 84145; 87635; 71046; G0378 ×3; J2930 ×3

== ENCOUNTER 2021-05-07 10:41 | Observation (INO) | payer MEDICARE, OTHER ==
[2021-05-07] MEDS ORDERED: SODIUM CHLORIDE 0.9% 500 ML 500 ML IV STA (10:57)
[2021-05-07 11:23] LABS: Basophils % (A) 0 %; Eosinophils # (A) 0.2 k/uL (0-0.7); Eosinophils % (A) 3 %; HCT 29.7 % (39.0-53.0); HGB 10.6 gm/dL (13.0-17.5); Lymphocytes # (A) 1.9 k/uL (1.0-4.8); Lymphocytes % (A) 29 %; MCH 35.1 pg (25.0-35.0); MCHC 35.7 g/dL (31.0-37.0); MCV 98.1 fL (80.0-100.0); Mean Platelet Volume 7.9; Monocytes # (A) 0.5 k/uL (0-1.0); Monocytes % (A) 8 %; Neutrophils # (A) 3.8 k/uL (1.3-7.7); Neutrophils % (A) 58 %; Platelet Count 147 k/uL (150-450); RBC 3.03 m/uL (4.30-5.90); RDW 14.1 % (11.5-15.5); WBC 6.6 k/uL (3.8-10.6)
--- NOTE | 2021-05-07 11:27 | ED ---
General Adult HPI - General Chief complaint: Syncope Stated complaint: Syncope Time Seen by Provider: 05/07/21 10:48 Source: patient, EMS, RN notes reviewed, old records reviewed Mode of arrival: EMS Limitations: no limitations - History of Present Illness Initial comments: 81-year-old male presents with syncopal episode. Patient had gotten up this mor joaquin, had some coffee and some breakfast, he began to feel dizzy and nearly collapsed. He did not fall, there is no injury. Paramedics were called by his son and upon arrival the patient did have a complete syncopal episode. He was found to be bradycardic at that time and was given atropine. At the time my evaluation the patient has no complaints, no chest pain, no abdominal pain. No vomiting. No fever. He states he has had some recent medication changes but is uncertain what these changes were. - Related Data Home Medications Medication Instructions Recorded Confirmed traMADol HCL 50 mg PO DAILY PRN 10/08/20 05/07/21 Apixaban [Eliquis] 5 mg PO BID@0700,1600 05/01/21 05/07/21 Atorvastatin [Lipitor] 80 mg PO DAILY@1600 05/01/21 05/07/21 Furosemide [Lasix] 20 mg PO BID@0700,1200 05/01/21 05/07/21 Losartan Potassium 50 mg PO HS 05/01/21 05/07/21 Albuterol Inhaler [Ventolin Hfa 2 puff INHALATION RT-QID PRN 05/07/21 05/07/21 Inhaler] predniSONE See Taper PO DIRECTED 05/07/21 05/07/21 Previous Rx's Medication Instructions Recorded Budesonide-Formot 160-4.5 Mcg 2 puff INHALATION RT-BID #1 gm 05/02/21 [Symbicort 160-4.5 Mcg Inhaler] carvediloL [Coreg] 6.25 mg PO BID #60 tablet 05/03/21 Allergies Allergy/AdvReac Type Severity Reaction Status Date / Time No Known Allergies Allergy Verified 05/07/21 12:03 Review of Systems ROS Statement: Those systems with pertinent positive or pertinent negative responses have been documented in the HPI. ROS Other: All systems not noted in ROS Statement are negative. Past Medical History Past Medical History: Atrial Fibrillation, Heart Failure, COPD History of Any Multi-Drug Resistant Organisms: None Reported Past Surgical History: Heart Catheterization Past Psychological History: No Psychological Hx Reported Smoking Status: Former smoker Past Alcohol Use History: None Reported Past Drug Use History: None Reported General Exam General appearance: alert, in no apparent distress Head exam: Present: atraumatic, normocephalic Eye exam: Present: normal appearance, PERRL ENT exam: Present: normal exam Neck exam: Present: normal inspection. Absent: tenderness, meningismus Respiratory exam: Present: normal lung sounds bilaterally. Absent: respiratory distress Cardiovascular Exam: Present: regular rate, normal rhythm GI/Abdominal exam: Present: soft. Absent: distended, tenderness, guarding Extremities exam: Present: normal inspection, normal capillary refill. Absent: pedal edema Neurological exam: Present: alert, oriented X3, CN II-XII intact Psychiatric exam: Present: normal affect, normal mood Skin exam: Present: warm, dry, intact. Absent: cyanosis, diaphoretic, erythema Course Vital Signs 05/07/21 10:42 Temperature 97.8 F Pulse Rate 54 L Respiratory 18 Rate Blood Pressure 114/66 O2 Sat by Pulse 97 Oximetry EKG Findings - EKG Comments: EKG Findings:: EKG: Sinus bradycardia blood bundle branch block, rate 58 VA interval 196, QRS duration 174, QTC 516. History of left bundle Medical Decision Making - Medical Decision Making 81-year-old male with syncopal episode, bradycardia. Patient recently was changed from metoprolol to Coreg. He's been on this medication for 2 days. Patient has a resting heart rate in the 30s to low 40s. His blood pressure is stable in the emergency department. He has relatively stable laboratory testing. A chest x-ray is clear. He will be monitored on telemetry overnight, case discussed with [facility] physician group will admit. Cardiology is placed on consult. - Lab Data Result diagrams: 05/07/21 11:02 05/07/21 11:02 Lab Results 05/07/21 05/07/21 05/07/21 Range/Units 11:02 11:02 11:02 WBC 6.6 (3.8-10.6) k/uL RBC 3.03 L (4.30-5.90) m/uL Hgb 10.6 L (13.0-17.5) gm/dL Hct 29.7 L (39.0-53.0) % MCV 98.1 (80.0-100.0) fL MCH 35.1 H (25.0-35.0) pg MCHC 35.7 (31.0-37.0) g/dL RDW 14.1 (11.5-15.5) % Plt Count 147 L (150-450) k/uL MPV 7.9 Neutrophils % 58 % Lymphocytes % 29 % Monocytes % 8 % Eosinophils % 3 % Basophils % 0 % Neutrophils # 3.8 (1.3-7.7) k/uL Lymphocytes # 1.9 (1.0-4.8) k/uL Monocytes # 0.5 (0-1.0) k/uL Eosinophils # 0.2 (0-0.7) k/uL Basophils # 0.0 (0-0.2) k/uL PT 11.6 (9.0-12.0) sec INR 1.1 (<1.2) APTT 20.0 L (22.0-30.0) sec Sodium 135 L (137-145) mmol/L Potassium 3.3 L (3.5-5.1) mmol/L Chloride 105 (98-107) mmol/L Carbon Dioxide 24 (22-30) mmol/L Anion Gap 6 mmol/L BUN 38 H (9-20) mg/dL Creatinine 1.44 H (0.66-1.25) mg/dL Est GFR (CKD-EPI)AfAm 52 (>60 ml/min/1.73 sqM) Est GFR (CKD-EPI)NonAf 45 (>60 ml/min/1.73 sqM) Glucose 165 H (74-99) mg/dL Calcium 8.1 L (8.4-10.2) mg/dL Magnesium 2.3 (1.6-2.3) mg/dL Total Bilirubin 0.8 (0.2-1.3) mg/dL AST 33 (17-59) U/L ALT 42 (4-49) U/L Alkaline Phosphatase 86 (38-126) U/L Troponin I (0.000-0.034) ng/mL Total Protein 6.3 (6.3-8.2) g/dL Albumin 3.4 L (3.5-5.0) g/dL 05/07/21 Range/Units 11:02 WBC (3.8-10.6) k/uL RBC (4.30-5.90) m/uL Hgb (13.0-17.5) gm/dL Hct (39.0-53.0) % MCV (80.0-100.0) fL MCH (25.0-35.0) pg MCHC (31.0-37.0) g/dL RDW (11.5-15.5) % Plt Count (150-450) k/uL MPV Neutrophils % % Lymphocytes % % Monocytes % % Eosinophils % % Basophils % % Neutrophils # (1.3-7.7) k/uL Lymphocytes # (1.0-4.8) k/uL Monocytes # (0-1.0) k/uL Eosinophils # (0-0.7) k/uL Basophils # (0-0.2) k/uL PT (9.0-12.0) sec INR (<1.2) APTT (22.0-30.0) sec Sodium (137-145) mmol/L Potassium (3.5-5.1) mmol/L Chloride (98-107) mmol/L Carbon Dioxide (22-30) mmol/L Anion Gap mmol/L BUN (9-20) mg/dL Creatinine (0.66-1.25) mg/dL Est GFR (CKD-EPI)AfAm (>60 ml/min/1.73 sqM) Est GFR (CKD-EPI)NonAf (>60 ml/min/1.73 sqM) Glucose (74-99) mg/dL Calcium (8.4-10.2) mg/dL Magnesium (1.6-2.3) mg/dL Total Bilirubin (0.2-1.3) mg/dL AST (17-59) U/L ALT (4-49) U/L Alkaline Phosphatase (38-126) U/L Troponin I 0.020 (0.000-0.034) ng/mL Total Protein (6.3-8.2) g/dL Albumin (3.5-5.0) g/dL Disposition Clinical Impression: Bradycardia, Syncope Disposition: ADMITTED IP TO THIS [facility] Condition: Stable Is patient prescribed a controlled substance at d/c from ED?: No Referrals: Lucy Angulo NPC [Primary Care Provider] - 1-2 days Decision to Admit Reason: Admit from EC Decision Date: 05/07/21 Decision Time: 13:37
[2021-05-07 11:43] LABS: Albumin 3.4 g/dL (3.5-5.0); Calcium 8.1 mg/dL (8.4-10.2); Magnesium 2.3 mg/dL (1.6-2.3); Potassium 3.3 mmol/L (3.5-5.1); Total Bilirubin 0.8 mg/dL (0.2-1.3); Total Protein 6.3 g/dL (6.3-8.2)
--- NOTE | 2021-05-07 11:54 | XR ---
EXAMINATION TYPE: XR chest 2V DATE OF EXAM: 05/07/2021 COMPARISON: Chest x-ray May 01, 2021 HISTORY: Syncope TECHNIQUE: Frontal and lateral views of the chest are obtained on 3 images. FINDINGS: There is no focal air space opacity, pleural effusion, or pneumothorax seen. Prominent falguni g volumes and flattening the hemidiaphragms could be related to underlying COPD. There is thoracic sp ondylosis. Coronary artery calcifications are suspected. There are overlying leads. Probable vascular calcification suspected in the superior mediastinum The cardiac silhouette size is within normal [place] its. The osseous structures are intact. IMPRESSION: No acute cardiopulmonary process.
[2021-05-07 11:59] LABS: INR 1.1 (<1.2); Prothrombin Time 11.6 sec (9.0-12.0)
[2021-05-07] MEDS ORDERED: NALOXONE 0.4 MG/ML 1 ML VIAL IV PRN ×2 (13:28→13:44)
[2021-05-07] MEDS ORDERED: ACETAMINOPHEN TAB 325 MG TAB PO PRN (13:28)
[2021-05-07] MEDS ORDERED: ONDANSETRON 4 MG/2 ML VIAL IVP PRN (13:44)
[2021-05-07] MEDS ORDERED: LOPERAMIDE 2 MG CAP PO PRN (13:44)
[2021-05-07] MEDS ORDERED: MAG HYDROX/AL HYDROX/SIMETH 30 ML CUP PO PRN (13:44)
--- NOTE | 2021-05-07 13:50 | P.HPIM ---
History of Present Illness H&P Date: 05/07/21 81-year-old male with past medical history of hypertension admitted to the hospital for syncopal episode patient states that he did have 3 episodes of syncope patient felt dizzy before the episode and then lost consciousness Family that could have stayed for a few minutes Denies any chest pain or shortness of breath Review of systems and systems has been reviewed all negative and positive findings as per history of present illness Constitutional: No acute distress, conversant, pleasant Eyes: Anicteric sclerae, moist conjunctiva, no lid-lag PERRLA ENMT: NC/AT Oropharynx clear, no erythema, exudates Neck: Supple, FROM, no masses, or JVD No carotid bruits No thyromegaly Lungs: Clear to auscultation Clear to percussion Normal respiratory effort, no accessory muscle use Cardiovascular: Heart regular in rate and rhythm, No murmurs, gallops, or rubs No peripheral edema Abdominal: Soft Nontender, no guarding, rebound or rigidity Abdomen moving with respiration Normoactive bowel sounds No hepatomegaly, No splenomegaly No palpable mass No abdominal wall hernia noted Skin: Normal temperature, tone, texture, turgor No induration No subcutaneous nodules No rash, lesions No ulcers Extremities: No digital cyanosis No clubbing Pedal pulses intact and symmetrical Radial pulses intact and symmetrical Normal gait and station No calf tenderness Psychiatric:Alert and oriented to person, place and time Appropriate affect Intact judgement Neuro: Muscles Strength 5/5 in all 4 extremities Sensation to light touch grossly present throughout Cranial nerves II-XII grossly intact No focal sensory deficits Syncopal episode with bradycardia will consult cardiology We'll also check cardiac enzymes and d-dimer Hypertension Dehydration Generalized weakness Past Medical History Past Medical History: Atrial Fibrillation, Heart Failure, COPD History of Any Multi-Drug Resistant Organisms: None Reported Past Surgical History: Heart Catheterization Past Psychological History: No Psychological Hx Reported Smoking Status: Former smoker Past Alcohol Use History: None Reported Past Drug Use History: None Reported Medications and Allergies Home Medications Medication Instructions Recorded Confirmed Type traMADol HCL 50 mg PO DAILY PRN 10/08/20 05/07/21 History Apixaban [Eliquis] 5 mg PO BID@0700,1600 05/01/21 05/07/21 History Atorvastatin [Lipitor] 80 mg PO DAILY@1600 05/01/21 05/07/21 History Furosemide [Lasix] 20 mg PO BID@0700,1200 05/01/21 05/07/21 History Losartan Potassium 50 mg PO HS 05/01/21 05/07/21 History Budesonide-Formot 160-4.5 Mcg 2 puff INHALATION RT-BID #1 gm 05/02/21 05/07/21 Rx [Symbicort 160-4.5 Mcg Inhaler] carvediloL [Coreg] 6.25 mg PO BID #60 tablet 05/03/21 05/07/21 Rx Albuterol Inhaler [Ventolin Hfa 2 puff INHALATION RT-QID PRN 05/07/21 05/07/21 History Inhaler] predniSONE See Taper PO DIRECTED 05/07/21 05/07/21 History Allergies Allergy/AdvReac Type Severity Reaction Status Date / Time No Known Allergies Allergy Verified 05/07/21 12:03 Physical Exam Vitals: Vital Signs Temp Pulse Resp BP Pulse Ox 05/07/21 10:42 97.8 F 54 L 18 114/66 97 Intake and Output 05/06/21 05/07/21 05/07/21 22:59 06:59 14:59 Other: Weight 86.636 kg Results CBC & Chem 7: 05/07/21 11:02 05/07/21 11:02 Labs: Abnormal Lab Results - Last 24 Hours (Table) 05/07/21 05/07/21 05/07/21 Range/Units 11:02 11:02 11:02 RBC 3.03 L (4.30-5.90) m/uL Hgb 10.6 L (13.0-17.5) gm/dL Hct 29.7 L (39.0-53.0) % MCH 35.1 H (25.0-35.0) pg Plt Count 147 L (150-450) k/uL APTT 20.0 L (22.0-30.0) sec Sodium 135 L (137-145) mmol/L Potassium 3.3 L (3.5-5.1) mmol/L BUN 38 H (9-20) mg/dL Creatinine 1.44 H (0.66-1.25) mg/dL Glucose 165 H (74-99) mg/dL Calcium 8.1 L (8.4-10.2) mg/dL Albumin 3.4 L (3.5-5.0) g/dL
[2021-05-07] MEDS ORDERED: ALBUTEROL NEBULIZED 2.5 MG/3 ML INHALATION PRN (13:51)
[2021-05-07] MEDS ORDERED: traMADol 50 MG TAB PO PRN (13:51)
--- NOTE | 2021-05-07 14:49 | CT ---
EXAMINATION TYPE: CT brain wo con DATE OF EXAM: 05/07/2021 HISTORY: syncope CT DLP: 1149.4 mGycm. Automated Exposure Control for Dose Reduction was Utilized. TECHNIQUE: CT scan of the head is performed without contrast. COMPARISON: None. FINDINGS: There is no acute intracranial hemorrhage or midline shift identified. There is moderate diffuse ventricular and sulcal prominence consistent with diffuse age-related cerebral atrophy. Ther e is mild to moderate low-attenuation in the periventricular white matter consistent with chronic sma ll vessel ischemic change. The calvarium is intact. The globes are intact and the visualized sinuses are clear. Vascular calcification distal internal carotid arteries bilaterally is noted. No suspic ious opacification of the mastoid air cells. IMPRESSION: No acute intracranial hemorrhage or midline shift. There is moderate diffuse age-relate d cerebral atrophy and mild to moderate chronic small vessel ischemic change noted.
[2021-05-07] MEDS ORDERED: ATORVASTATIN 80 MG TAB PO SCH (16:00)
[2021-05-07 16:32] LABS: Appearance,Urine Clear (Clear); Bilirubin,Urine Negative (Negative); Blood,Urine Negative (Negative); Color,Urine Light Yellow; Glucose,Urine (UA) Negative (Negative); Ketones,Urine Negative (Negative); Leukocyte Esterase,Urine Trace (Negative); Mucus,Urine Rare /hpf; Nitrite,Urine Negative (Negative); Protein,Urine Negative (Negative); RBC,Urine <1 /hpf (0-5); Specific Gravity,Urine 1.012 (1.001-1.035); Urobilinogen,Urine <2.0 mg/dL (<2.0); WBC,Urine 1 /hpf (0-5)
[2021-05-08 07:32] VITALS: RESP 18
[2021-05-08] MEDS ORDERED: APIXABAN 5 MG TAB PO SCH (08:55)
[2021-05-08] MEDS ORDERED: carvediloL 3.125 MG TAB PO SCH (09:00)
[2021-05-08] MEDS ORDERED: METOPROLOL TARTRATE 12.5 MG TAB PO SCH (09:15)
--- NOTE | 2021-05-08 11:00 | P.DS ---
Providers Date of admission: 05/07/21 13:28 Expected date of discharge: 05/08/21 Attending physician: Maty Acevedo MD Consults: 05/07/21 13:28 Consult Physician Routine Consulting Provider: Elvis Barrios Consult Reason/Comments: Syncope, bradycardia Do you want consulting provider notified?: Yes Primary care physician: SOLE Krishna Hospital Course: 81-year-old male admitted to the hospital with a syncopal episode due to likely bradycardia the patient has been evaluated by cardiology cardiac has been stopped the patient has been started on metoprolol 12.5 mg by mouth daily patient wants to go home today denies any chest pain no shortness of breath Patient does not want to stay further Hospital Physical exam stable Constitutional: No acute distress, conversant, pleasant Eyes: Anicteric sclerae, moist conjunctiva, no lid-lag PERRLA ENMT: NC/AT Oropharynx clear, no erythema, exudates Neck: Supple, FROM, no masses, or JVD No carotid bruits No thyromegaly Lungs: Clear to auscultation Clear to percussion Normal respiratory effort, no accessory muscle use Cardiovascular: Heart regular in rate and rhythm, No murmurs, gallops, or rubs No peripheral edema Abdominal: Soft Nontender, no guarding, rebound or rigidity Abdomen moving with respiration Normoactive bowel sounds No hepatomegaly, No splenomegaly No palpable mass No abdominal wall hernia noted Skin: Normal temperature, tone, texture, turgor No induration No subcutaneous nodules No rash, lesions No ulcers Extremities: No digital cyanosis No clubbing Pedal pulses intact and symmetrical Radial pulses intact and symmetrical Normal gait and station No calf tenderness Psychiatric:Alert and oriented to person, place and time Appropriate affect Intact judgement Neuro: Muscles Strength 5/5 in all 4 extremities Sensation to light touch grossly present throughout Cranial nerves II-XII grossly intact No focal sensory deficits Discharge plan Syncopal episode possibly due to bradycardia chronic has been stopped patient has been restarted on low doses of metoprolol Patient to follow-up with cardiology and primary care physician as an outpatient Doubt PE patient doesn't want to stay further the hospital at this time Plan - Discharge Summary Discharge Rx Participant: No New Discharge Prescriptions: New Metoprolol Tartrate [Lopressor] 12.5 mg PO DAILY 30 Days #30 tab Continue Atorvastatin [Lipitor] 80 mg PO DAILY@1600 Apixaban [Eliquis] 5 mg PO BID@0700,1600 Losartan Potassium 50 mg PO HS Budesonide-Formot 160-4.5 Mcg [Symbicort 160-4.5 Mcg Inhaler] 2 puff INHALATION RT-BID #1 gm traMADol HCL 50 mg PO DAILY PRN PRN Reason: Pain Furosemide [Lasix] 20 mg PO BID@0700,1200 predniSONE See Taper PO DIRECTED Albuterol Inhaler [Ventolin Hfa Inhaler] 2 puff INHALATION RT-QID PRN PRN Reason: Shortness Of Breath Discontinued carvediloL [Coreg] 6.25 mg PO BID #60 tablet Discharge Medication List traMADol HCL 50 mg PO DAILY PRN 10/08/20 [History] Apixaban [Eliquis] 5 mg PO BID@0700,1600 05/01/21 [History] Atorvastatin [Lipitor] 80 mg PO DAILY@1600 05/01/21 [History] Furosemide [Lasix] 20 mg PO BID@0700,1200 05/01/21 [History] Losartan Potassium 50 mg PO HS 05/01/21 [History] Budesonide-Formot 160-4.5 Mcg [Symbicort 160-4.5 Mcg Inhaler] 2 puff INHALATION RT-BID #1 gm 05/02/21 [Rx] Albuterol Inhaler [Ventolin Hfa Inhaler] 2 puff INHALATION RT-QID PRN 05/07/21 [History] predniSONE See Taper PO DIRECTED 05/07/21 [History] Metoprolol Tartrate [Lopressor] 12.5 mg PO DAILY 30 Days #30 tab 05/08/21 [Rx] Follow up Appointment(s)/Referral(s): Lucy Angulo, SOLE [Primary Care Provider] - 1-2 days
[2021-05-08 11:05] LABS: Basophils # (A) 0.02 X 10*3/uL (0.00-0.10); Basophils % (A) 0.2 %; Eosinophils % (A) 3.3 %; HCT 31.2 % (39.6-50.0); HGB 10.5 g/dL (13.0-17.0); Lymphocytes # (A) 1.78 X 10*3/uL (0.90-5.00); Lymphocytes % (A) 19.5 %; MCH 32.9 pg (27.0-32.0); MCHC 33.7 g/dL (32.0-37.0); MCV 97.8 fL (80.0-97.0); Mean Platelet Volume 10.6 fL (9.5-12.2); Monocytes % (A) 9.9 %; Neutrophils # (A) 5.99 X 10*3/uL (1.80-7.70); Neutrophils % (A) 65.8 %; Platelet Count 179 X 10*3/uL (140-440); RBC 3.19 X 10*6/uL (4.40-5.60); RDW 13.7 % (11.5-14.5); WBC 9.11 X 10*3/uL (4.50-10.00)
[2021-05-08 11:16] LABS: African American GFR (CKD) 52.1 (60.0-200.0); Albumin 3.8 g/dL (3.8-4.9); Albumin/Globulin Ratio 1.65 (1.60-3.17); Anion Gap 9.4 mmol/L (10.00-18.00); BUN/Creat Ratio 21.33 Ratio (12.00-20.00); Blood Urea Nitrogen 30.5 mg/dL (9.0-27.0); Calcium 8.6 mg/dL (8.7-10.3); Carbon Dioxide 25.7 mmol/L (20.0-27.5); Globulin 2.3 g/dL (1.6-3.3); Potassium 3.7 mmol/L (3.5-5.5); Total Bilirubin 0.7 mg/dL (0.30-1.20); Total Protein 6.1 g/dL (6.2-8.2)
[2021-05-08 11:31] VITALS: BP 127/72; PULSE 49; TEMP 97.6
[2021-05-08] MEDS ORDERED: FUROSEMIDE 20 MG TAB PO SCH (12:00)
--- NOTE | 2021-05-08 12:54 | CONS ---
CONSULTATION HISTORY OF PRESENT ILLNESS: This is an 81-year-old patient who I have seen in the office in December of 2020 following hospitalization. He has nonischemic cardiomyopathy with diffuse disease in LAD, moderate aortic stenosis and paroxysmal atrial fibrillation. Ejection fraction was 25%. He was advised ICD, but he was reluctant for this. He was optimized on medical therapy with metoprolol 25 and was sent back to his primary care physician with a followup in the next couple of months. However, patient says he saw his primary care physician who is a new doctor for him. He does not recall the name. They switched his medication to Coreg and also increased the dose to 6.25 mg. He got up yesterday, felt dizzy, lightheaded, and he did not quite lose consciousness but collapsed and paramedics were called. Upon arrival, he had a syncopal episode, was found to be bradycardic and was given atropine. However, heart rate on arrival to the ER was in the 50s and he has a left bundle with a normal DE interval. He has increased the dose of Coreg from 3.125-6.25. Here since arrival, his heart rate has always been more than 50s, resting comfortably without symptoms. He may have definitely some conduction system disease, but I am not sure what the trigger was at this time. The patient does have decreased LV function, but has chosen not to have ICD seen during his last discussion with me in December. PAST MEDICAL HISTORY: 1. Nonischemic cardiomyopathy with noncritical CAD. 2. Paroxysmal atrial fibrillation. 3. Hypertension. 4. Hyperlipidemia. 5. History of left bundle branch block pattern. 6. History of paroxysmal atrial fibrillation. MEDICATIONS: Medications at home include Coreg 6.25 mg b.i.d., Lipitor 80 mg daily, apixaban 5 mg b.i.d. and losartan 50 mg daily. ALLERGIES: None. EXAMINATION: On examination, blood pressure is 136/70, pulse rate is 66 per minute, regular. HEENT unremarkable. Fundus was not examined by me. Neck is supple. There is no JVD. I do not hear a carotid bruit. Heart exam reveals S1, S2 with ejection systolic murmur at the base. Second heart sound is preserved. Lungs are clear. Abdomen is soft, nontender. Lower extremity with normal pulses. No edema. Central nervous system is grossly within normal limits. EKG revealed sinus rhythm with PACs and left bundle branch block pattern. IMPRESSION: 1. Probable bradycardia related to increased dose of carvedilol with underlying sick sinus syndrome. 2. Coronary artery disease, noncritical. 3. Nonischemic cardiomyopathy with ejection fraction of 25%. 4. Moderate aortic stenosis. 5. Paroxysmal atrial fibrillation. RECOMMENDATIONS: I am recommending that we place him on metoprolol tartrate 12.5 mg daily, discontinue Coreg, continue losartan 50 mg daily, Lasix will be the same dose, apixaban will be 5 mg daily. I will decrease the atorvastatin to 40 mg daily. We will observe him and see if he has any bradycardia on this dose and if he does not, he can be discharged and I will see him in the office on May 13. I will consider performing a Holter to assess his heart rate over a 24 hour period. I discussed my thoughts in detail with the patient, but I am not sure how much he comprehends. I will see him in the office and he will go home only on 12.5 mg daily of metoprolol plus his other medications. Thank you very much for the consult. YANG / KAYLEY: [id number] /
[2021-05-08] MEDS ORDERED: ATORVASTATIN 40 MG TAB PO SCH (16:00)
[2021-05-08] MEDS ORDERED: LOSARTAN 50 MG TAB PO SCH (21:00)
== END 2021-05-08 13:13 | disposition home or self-care (01) ==
LOC: EC 10:41 → SUPCPDRO 10:41 → 3SCARD 13:28 → 6NMEDSUR 18:17
PROVIDERS: ADMIT Internal Medicine; ATTEND Internal Medicine
DX: R55 Syncope and collapse (principal); I11.0 Hypertensive heart disease with heart failure; I50.9 Heart failure, unspecified; I25.10 Atherosclerotic heart disease of native coronary artery without angina pectoris; Z20.822 Contact with and (suspected) exposure to COVID-19; I48.0 Paroxysmal atrial fibrillation; I49.5 Sick sinus syndrome; I44.7 Left bundle-branch block, unspecified; I35.0 Nonrheumatic aortic (valve) stenosis; I42.8 Other cardiomyopathies; E78.5 Hyperlipidemia, unspecified; J44.9 Chronic obstructive pulmonary disease, unspecified; Z79.01 Long term (current) use of anticoagulants; Z79.51 Long term (current) use of inhaled steroids; Z79.899 Other long term (current) drug therapy; Z87.891 Personal history of nicotine dependence
CPT/HCPCS: 99285; 96360; 36415; 93005; 85379; 80053 ×2; 83735; 84484; 85025 ×2; 85610; 85730; 81001; 87635; 71046; 70450; G0378 ×3

== ENCOUNTER → 2021-08-03 | Outpatient (CLI) | payer MEDICARE, OTHER ==
[2021-08-03 14:38] LABS: HCT 31.9 % (39.6-50.0); HGB 10.6 g/dL (13.0-17.0); MCH 32.2 pg (27.0-32.0); MCHC 33.2 g/dL (32.0-37.0); Mean Platelet Volume 10.6 fL (9.5-12.2); NRBC Per 100 WBC 0 /100 WBCS (0.0-0.0); Platelet Count 170 X 10*3/uL (140-440); RBC 3.29 X 10*6/uL (4.40-5.60); RDW 13.3 % (11.5-14.5); WBC 6.93 X 10*3/uL (4.50-10.00)
[2021-08-03 15:07] LABS: African American GFR (CKD) 55.9 (60.0-200.0); Anion Gap 12.4 mmol/L (10.00-18.00); Blood Urea Nitrogen 20.8 mg/dL (9.0-27.0); Carbon Dioxide 25.6 mmol/L (20.0-27.5); Non-African American GFR(CKD) 48.2 (60.0-200.0); Potassium 3.6 mmol/L (3.5-5.5)
== END | disposition home or self-care (01) ==
LOC: LABPAT 09:55
PROVIDERS: ATTEND Internal Medicine Clinical Cardiac Electrophysiology
DX: Z01.812 Encounter for preprocedural laboratory examination (principal); Z01.818 Encounter for other preprocedural examination; I42.8 Other cardiomyopathies
CPT/HCPCS: 80051; 82565; 84520; 85027; U0003

== ENCOUNTER 2021-08-18 08:42 | Day surgery (SDC) | payer MEDICARE, OTHER ==
[2021-08-14 15:18] VITALS: BMI 25.9
[~2021-08-18 08:42] MED LIST: SODIUM CHLORIDE 0.9% 1,000 ML IV SCH; ceFAZolin 1 GM in SODIUM CHLORIDE 0.9% IRRIG BTL 250 ML IRRIGATION PRN
[2021-08-18] MEDS: SODIUM CHLORIDE 0.9% 1,000 ML IV SCH (09:27)
[2021-08-18] MEDS ORDERED: SODIUM CHLORIDE 0.9% 500 ML 500 ML IV ONE (09:27)
[2021-08-18] MEDS ORDERED: SODIUM CHLORIDE 0.9% 500 ML 400 ML IV ONE (11:09)
[2021-08-18] MEDS ORDERED: PROPOFOL 10 MG/ML 20 ML VIAL IV ONE (11:10)
[2021-08-18] MEDS ORDERED: MIDAZOLAM 2 MG/2 ML VIAL ONE (11:10)
[2021-08-18] MEDS ORDERED: PHENYLEPHRINE-0.9% NACL SYG 1,000 MCG/10 ML SYRINGE ONE (11:10)
[2021-08-18] MEDS ORDERED: fentaNYL (PF) 50 MCG/ML 2 ML AMP ONE (11:10)
[2021-08-18] MEDS: IOPAMIDOL-370 100ML BTL INJ ONE ×2 (11:25→14:06)
[2021-08-18] MEDS ORDERED: LIDOCAINE 1% INJ 10MG/ML (30 ML VIAL-PF) SQ ONE (11:54)
[2021-08-18] MEDS ORDERED: traMADol 50 MG TAB PO PRN (14:12)
[2021-08-18] MEDS ORDERED: ACETAMINOPHEN TAB 325 MG TAB PO PRN (14:16)
[2021-08-18] MEDS ORDERED: ACETAMINOPHEN IV (For NPO) 1,000 MG in EMPTY BAG 1 BAG IVPB ONE (15:00)
--- NOTE | 2021-08-18 15:10 | XR ---
EXAMINATION TYPE: XR chest 1V portable DATE OF EXAM: 08/18/2021 COMPARISON: Chest x-ray 05/27/2021 HISTORY: Lead placement check TECHNIQUE: Single frontal view of the chest is obtained. FINDINGS: There has been interval placement of a generator in the left pectoral region, there are isabel ds in the right atrium, right ventricle, coronary sinus. There are overlying leads. There is no focal air space opacity, pleural effusion, or pneumothorax seen. The cardiac silhouette size is within no rmal limits. The osseous structures are intact. IMPRESSION: No evident complication status post lead placement
[2021-08-18] MEDS ORDERED: ATORVASTATIN 80 MG TAB PO SCH (16:00)
[2021-08-18] MEDS ORDERED: LOSARTAN 50 MG TAB PO SCH (21:00)
[2021-08-19] MEDS: SODIUM CHLORIDE 0.9% 1,000 ML IV SCH (00:38)
[2021-08-19 08:15] VITALS: BP 119/67; PULSE 58; RESP 17; TEMP 98.3
[2021-08-19] MEDS: FUROSEMIDE 20 MG TAB PO SCH ×2 (08:38→11:42)
[2021-08-19] MEDS ORDERED: METOPROLOL SUCCINATE (ER) 50 MG TAB.ER.24H PO SCH (09:00)
--- NOTE | 2021-08-19 11:11 | P.HPIM ---
History of Present Illness H&P Date: 08/19/21 HISTORY OF PRESENT ILLNESS This is an 81-year-old male patient of Dr. Martinez and Dr. Solorzano with past medical history of non-ST elevated NM, moderate aortic stenosis, paroxysmal atrial fibrillation, chronic systolic heart failure and severe nonischemic cardiomyopathy, mild diffuse coronary artery disease in the mid and distal LAD without significant lesions, hypertension, short-term memory loss, chronic back pain, COPD, remote history of tobacco use. Patient was brought in the hospital under the care of Dr. Solorzano status post biventricular defibrillator. Chest x- ray showed no postprocedure complications. Patient is seen on the [facility] floor, he's had no postop complications. Patient shows signs of short-term memory deficit which apparently is his norm. Anticipate discharge home later today. REVIEW OF SYSTEMS Constitutional: No fever, no chills, no night sweats. No weight change. No weakness, fatigue or lethargy. No daytime sleepiness. EENT: No headache. No blurred vision or double vision, no loss of vision. No loss of Hearing, no ringing in the ears, no dizziness. No nasal drainage or congestion. No epistaxis. No sore throat. Lungs: No shortness of breath, cough, no sputum production. No wheezing. Cardiovascular: No chest pain, no lower extremity edema. No palpitations. No paroxysmal nocturnal dyspnea. No orthopnea. No lightheadedness or dizziness. No syncopal episodes. Abdominal: No abdominal pain. No nausea, vomiting. No diarrhea. No constipation. No bloody or tarry stools. No loss of appetite. Genitourinary: No dysuria, increased frequency, urgency. No urinary retention. Musculoskeletal: No myalgias. No muscle weakness, no gait dysfunction, no frequent falls. No back pain. No neck pain. Integumentary: No wounds, no lesions. No rash or pruritus. No unusual bruising. No change in hair or nails. Neurologic: No aphasia. No facial droop. No change in mentation. No head injury. No headache. No paralysis. No paresthesia. Psychiatric: No depression. No anxiety. No mood swings. Endocrine: No abnormal blood sugars. No weight change. No excessive sweating or thirst. No cold intolerance. SOCIAL HISTORY Patient was a smoker for 20-30 years and quit 20 years ago. He denies any alcohol use, marijuana use or illicit drug use. 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 FAMILY HISTORY Father at age 87 from old age. Mother at age 81 with history of diabetes. Patient has total of 7 brothers and sisters that have passed mostly from coronary artery disease. Patient has one brother living with no major medical problems. Patient has 2 children with no major medical problems. PHYSICAL EXAMINATION Gen: This is an 81-year-old male. He is resting in bed and appears comfortable and in no acute distress. HEENT: Head is atraumatic, normocephalic. Pupils equal, round. Sclerae is anicteric. NECK: Supple. No JVD. No lymphadenopathy. No thyromegaly. LUNGS: Clear to auscultation. No wheezes or rhonchi. No intercostal retractions. HEART: Regular rate and rhythm. Systolic murmur. ABDOMEN: Soft. Bowel sounds are present. No masses. No tenderness. EXTREMITIES: No pedal edema. No calf tenderness. NEUROLOGICAL: Patient is awake, alert and oriented to person and place. Cranial nerves 2 through 12 are grossly intact. ASSESSMENT AND PLAN 1. Nonischemic cardiomyopathy status post biventricular defibrillator implantation, postop day #1. Patient's had no post procedure complications. Anticipate discharge home later today. 2. Aortic stenosis. 3. Paroxysmal atrial fibrillation. Patient is usually on eliquis and Lopressor 25 mg daily. 4. Chronic systolic heart failure. Continue Lasix 20 mg twice daily, Lopressor 25 mg daily. 5. Mild diffuse coronary artery disease without significant lesions, stable. 6. Hypertension. Continue Lopressor, losartan 50 mg at bedtime, Lasix. 7. Short-term memory deficit. This apparently is his baseline. 8. Chronic back pain. 9. COPD. Continue albuterol inhaler. DISCHARGE PLAN Return home. Impression and plan of care have been directed as dictated by the signing physician. Mariella Patiño nurse practitioner acting as scribe for signing physician. Past Medical History Past Medical History: Atrial Fibrillation, Heart Failure, COPD, Hearing Disorder / Deafness, Hyperlipidemia, Hypertension Additional Past Medical History / Comment(s): Pt is very T[place]AL[place] in R ear and slightly T[place]ALIP in L ear, anemia. History of Any Multi-Drug Resistant Organisms: None Reported Past Surgical History: Tonsillectomy Additional Past Surgical History / Comment(s): Pt has never had surgery Past Anesthesia/Blood Transfusion Reactions: No Reported Reaction Smoking Status: Former smoker - Past Family History Father Family Medical History: No Reported History Additional Family Medical History / Comment(s): Father was healthy Mother Family Medical History: No Reported History Additional Family Medical History / Comment(s): Mother was healthy. Medications and Allergies Home Medications Medication Instructions Recorded Confirmed Type Apixaban [Eliquis] 5 mg PO BID@0700,1600 05/01/21 08/18/21 History Atorvastatin [Lipitor] 80 mg PO DAILY@1600 05/01/21 08/18/21 History Furosemide [Lasix] 20 mg PO BID@0700,1200 05/01/21 08/18/21 History Losartan Potassium 50 mg PO HS 05/01/21 08/18/21 History Albuterol Sulfate [Albuterol 2 puff PO RT-Q6H PRN 05/27/21 08/18/21 History Sulfate Hfa] Metoprolol Tartrate [Lopressor] 25 mg PO DAILY@0700 05/27/21 08/18/21 History traMADol HCL 50 mg PO DAILY PRN 05/27/21 08/18/21 History Allergies Allergy/AdvReac Type Severity Reaction Status Date / Time No Known Allergies Allergy Verified 08/18/21 09:10 Physical Exam Vitals: Vital Signs Temp Pulse Pulse Pulse Resp BP BP 08/19/21 01:44 98.2 F 57 L 18 08/18/21 19:32 98.4 F 50 L 18 08/18/21 16:55 97.6 F 47 L 18 08/18/21 16:01 49 L 16 08/18/21 15:51 99/56 08/18/21 15:47 50 L 16 81/54 08/18/21 15:34 49 L 16 82/50 08/18/21 15:26 96/57 08/18/21 15:22 08/18/21 15:19 49 L 16 08/18/21 15:00 52 L 16 08/18/21 14:46 57 L 16 08/18/21 14:35 96.8 F L 56 L 14 08/18/21 09:23 98.2 F 50 L 18 BP BP Pulse Ox 08/19/21 01:44 116/54 95 08/18/21 19:32 110/68 98 08/18/21 16:55 100/67 99 08/18/21 16:01 98/55 100 08/18/21 15:51 08/18/21 15:47 98/60 96 08/18/21 15:34 95 08/18/21 15:26 08/18/21 15:22 98/58 08/18/21 15:19 85/55 97 08/18/21 15:00 90/54 97 08/18/21 14:46 104/60 100 08/18/21 14:35 107/62 100 08/18/21 09:23 144/68 Intake and Output 08/18/21 08/19/21 08/19/21 22:59 06:59 14:59 Intake Total 410 Balance 410 Intake: IV 320 Oral 90 Other: Voiding Method Toilet # Voids 2 2 Weight 86.636 kg Thrombosis Risk Factor Assmnt - Choose All That Apply Any of the Below Risk Factors Present?: Yes Other Risk Factors: Yes Each Risk Factor Represents 3 Points: Age 75 years or older Thrombosis Risk Factor Assessment Total Risk Factor Score: 3 Thrombosis Risk Factor Assessment Level: Moderate Risk
--- NOTE | 2021-08-19 12:54 | P.EPPROC ---
- EP Procedure Note Electrophysiology Procedure Note: Diagnosis Severe nonischemic cardio myopathy ejection fraction 20-25% Congestive heart failure class 2-3 On guideline directly medical treatment Left bundle branch block Procedure LV/ biventricular ICD implantation Details Patient was brought to the EP lab in a fasting state. Written informed consent was obtained prior to the procedure. Conscious sedation provided by anesthesia team IV antibiotics administered. Local anesthesia administered. A 4 cm incision made in the pectoral area. Subfascial pocket made. Venous access obtained Venous sheaths placed. Leads placed in the right heart Atrial lead position the right atrial appendage. Pacing threshold 0.75 V at 0.5 ms, P waves 1.4 mV and pacing impedance [address] [facility] services coordinator RV lead position in the RV apex. Pacing threshold 0.5 V at 0.5 ms R waves greater than 12 mV and pacing impedance [address] [facility] medical LV lead positioned in the LV vein. The coronary sinus was accessed. Venogram was performed. High pressures were noted The LV lead was initially placed in the anterior vein but it was a very basal position. The LV lead would not pass into the lateral vein Venogram revealed a diminutive anterior vein and a small LV vein. This LV vein had an initial tortuous origin. While a guidewires were passed through it would also slip out very easily The leads would not pass over this guidewire. Cannulating it with a subselectively sheath was unsuccessful The middle cardiac vein was soft and one of its tributaries past up along the lateral wall of the LV in the WOLOF view Finally excellent position was obtained without any diaphragmatic stimulation. Mapping of multiple LV veins look a long time Pacing threshold 1.5 V at 0.5 ms, P1-M2, pacing base 900 ohms High-voltage impedance [address] [facility] coordinator Biventricular pacemaker device connected to the leads and placed in the subfas cial pocket [facility] medical assistant secretary GALLANT HF Patient tolerance the procedure well without acute complications
--- NOTE | 2021-08-19 12:54 | P.DS ---
Providers Attending physician: Carlos Solorzano Primary care physician: [facility] Course: Patient is doing very well post Bi V ICD implantation Chest x-ray looks excellent, leads excellent position He is doing well blood pressures in the normal range Heart sounds are normal Breath sounds are clear No hematoma Impression Severe nonischemic cardio myopathy with a dilated left ventricle left bundle branch block on twelve-lead EKG CHF class 2-[address] [facility] biventricular ICD LV lead is positioned along the lateral wall Plan Chest x-ray is normal, IV antiemetics have been completed Once his interrogation was performed he may go home today to follow-up with Dr. Coe in a week Plan - Discharge Summary Discharge Rx Participant: No New Discharge Prescriptions: New RX: Metoprolol Succinate (ER) [Toprol XL] 50 mg PO DAILY #90 tab Continue RX: Atorvastatin [Lipitor] 80 mg PO DAILY@1600 RX: Apixaban [Eliquis] 5 mg PO BID@0700,1600 RX: Losartan Potassium 50 mg PO HS RX: Furosemide [Lasix] 20 mg PO BID@0700,1200 RX: Albuterol Sulfate [Albuterol Sulfate Hfa] 2 puff PO RT-Q6H PRN PRN Reason: Shortness Of Breath RX: traMADol HCL 50 mg PO DAILY PRN PRN Reason: Pain Discontinued Metoprolol Tartrate [Lopressor] 25 mg PO DAILY@0700 Discharge Medication List RX: Apixaban [Eliquis] 5 mg PO BID@0700,1600 05/01/21 [History] RX: Atorvastatin [Lipitor] 80 mg PO DAILY@1600 05/01/21 [History] RX: Furosemide [Lasix] 20 mg PO BID@0700,1200 05/01/21 [History] RX: Losartan Potassium 50 mg PO HS 05/01/21 [History] RX: Albuterol Sulfate [Albuterol Sulfate Hfa] 2 puff PO RT-Q6H PRN 05/27/21 [History] RX: traMADol HCL 50 mg PO DAILY PRN 05/27/21 [History] RX: Metoprolol Succinate (ER) [Toprol XL] 50 mg PO DAILY #90 tab 08/19/21 [Rx] Follow up Appointment(s)/Referral(s): Carlos Solorzano MD [STAFF PHYSICIAN] - 08/26/21 9:30 am
== END 2021-08-19 13:35 | disposition home or self-care (01) ==
LOC: CATHEP 08:42 → 6NMEDSUR 14:05 → CATHEP 08-19 13:35
PROVIDERS: ATTEND Internal Medicine Clinical Cardiac Electrophysiology
DX: I11.0 Hypertensive heart disease with heart failure (principal); I50.22 Chronic systolic (congestive) heart failure; I42.8 Other cardiomyopathies; I83.92 Asymptomatic varicose veins of left lower extremity; Z83.3 Family history of diabetes mellitus; I08.3 Combined rheumatic disorders of mitral, aortic and tricuspid valves; I44.7 Left bundle-branch block, unspecified; E78.5 Hyperlipidemia, unspecified; Z20.822 Contact with and (suspected) exposure to COVID-19; H91.90 Unspecified hearing loss, unspecified ear; I48.0 Paroxysmal atrial fibrillation; I25.10 Atherosclerotic heart disease of native coronary artery without angina pectoris; Z82.49 Family history of ischemic heart disease and other diseases of the circulatory system; R41.3 Other amnesia; G89.29 Other chronic pain; M54.9 Dorsalgia, unspecified; J44.9 Chronic obstructive pulmonary disease, unspecified; Z87.891 Personal history of nicotine dependence; Z98.890 Other specified postprocedural states; Z79.01 Long term (current) use of anticoagulants; Z79.899 Other long term (current) drug therapy
CPT/HCPCS: 33225; 33249; 87635; 71045; C1769 ×6; C1882; C1892 ×2; C1730; C1887; C1898; C1900; C1777; J2250; J0690; J2001; J3010; J0131; J2370; J2704; Q9967

== ENCOUNTER → 2022-03-04 | Outpatient (CLI) | payer MEDICARE, OTHER ==
[2022-03-04 18:14] LABS: HCT 30.7 % (39.6-50.0); HGB 10.2 g/dL (13.0-17.0); MCH 32.7 pg (27.0-32.0); MCHC 33.2 g/dL (32.0-37.0); MCV 98.4 fL (80.0-97.0); Mean Platelet Volume 10.6 fL (9.5-12.2); NRBC Per 100 WBC 0 /100 WBCS (0.0-0.0); Platelet Count 190 X 10*3/uL (140-440); RBC 3.12 X 10*6/uL (4.40-5.60); RDW 14.3 % (11.5-14.5)
[2022-03-04 18:30] LABS: African American GFR (CKD) 41.7 (60.0-200.0); Anion Gap 14.5 mmol/L (10.00-18.00); Blood Urea Nitrogen 23.2 mg/dL (9.0-27.0); Carbon Dioxide 28.1 mmol/L (20.0-27.5); Potassium 4.2 mmol/L (3.5-5.5)
== END | disposition home or self-care (01) ==
LOC: LABWHC1 11:14
PROVIDERS: ATTEND Internal Medicine Clinical Cardiac Electrophysiology
DX: Z01.812 Encounter for preprocedural laboratory examination (principal); Z01.818 Encounter for other preprocedural examination; I48.0 Paroxysmal atrial fibrillation
CPT/HCPCS: 36415; 80051; 82565; 84520; 85027

== ENCOUNTER 2022-03-09 06:26 | Day surgery (SDC) | payer MEDICARE, OTHER ==
[2022-03-05 10:15] VITALS: BMI 26.4
[~2022-03-09 06:26] MED LIST changes: +LACTATED RINGERS 1,000 ML IV SCH; -ceFAZolin 1 GM in SODIUM CHLORIDE 0.9% IRRIG BTL 250 ML IRRIGATION PRN
[2022-03-09] MEDS ORDERED: SODIUM CHLORIDE 0.9% 500 ML 500 ML IV ONE (06:34)
[2022-03-09 06:54] VITALS: RESP 16; TEMP 98.7
[2022-03-09] MEDS ORDERED: PROPOFOL 10 MG/ML 20 ML VIAL IV ONE (07:14)
[2022-03-09] MEDS ORDERED: LIDOCAINE 2% INJ 20 MG/ML (2 ML VIAL) ONE (07:14)
[2022-03-09 08:44] VITALS: BP 118/65; PULSE 53
--- NOTE | 2022-03-09 11:50 | P.EPPROC ---
- EP Procedure Note Electrophysiology Procedure Note: Diagnosis Congestive heart failure and left bundle branch block status post by ventricle ICD. Procedure DFT testing BiV-ICD interrogation and reprogramming Biventricular ICD was interrogated Atrial pacing threshold 1.0V @ 0.5 ms, P waves 2.9 mV and pacing impedance 480 ohms RV pacing threshold 0.7 V at 0.5 ms, R waves 12 mV pacing impedance 590 ohms LV pacing threshold 0.75 V at 0.5 ms pacing impedance of 610 ohms High-voltage impedance 66 ohms R waves over sensing noted intermittently Low-frequency filter turned on to minimize T-wave oversensing VF induced under conscious sedation This was adequately and appropriately detected at least sensitivity and successfully internally defibrillated with 20 J shock 10 J shock was unsuccessful Last charge time 4 seconds, high-voltage impedance 66 ohms No post shock noise Device was then reprogrammed First cardioversion at 20 J First defibrillation at 30 J Appropriate antitachycardia pacing cardioversion and defibrillation programmed Sensitivity reprogrammed to 0.5 mV
== END 2022-03-09 09:07 | disposition home or self-care (01) ==
LOC: CATHEP 06:26
PROVIDERS: ATTEND Internal Medicine Clinical Cardiac Electrophysiology
DX: I42.9 Cardiomyopathy, unspecified (principal); F17.210 Nicotine dependence, cigarettes, uncomplicated; I50.9 Heart failure, unspecified; I44.7 Left bundle-branch block, unspecified
CPT/HCPCS: 93642; J2704; J2001

== ENCOUNTER 2022-07-23 13:35 | Emergency (ER) | payer MEDICARE, OTHER ==
[2022-07-23 14:27] LABS: Basophils % (A) 0 %; Eosinophils # (A) 0.2 k/uL (0-0.7); Eosinophils % (A) 2 %; HCT 33.3 % (39.0-53.0); HGB 11.6 gm/dL (13.0-17.5); Lymphocytes # (A) 1.1 k/uL (1.0-4.8); Lymphocytes % (A) 13 %; MCH 32.7 pg (25.0-35.0); MCHC 34.8 g/dL (31.0-37.0); Mean Platelet Volume 8.4; Monocytes # (A) 0.5 k/uL (0-1.0); Monocytes % (A) 6 %; Neutrophils # (A) 6.6 k/uL (1.3-7.7); Neutrophils % (A) 76 %; Platelet Count 190 k/uL (150-450); Poikilocytosis Slight; RBC 3.54 m/uL (4.30-5.90); RDW 14.8 % (11.5-15.5); WBC 8.6 k/uL (3.8-10.6)
[2022-07-23 14:39] LABS: Albumin 4.5 g/dL (3.5-5.0); Calcium 8.8 mg/dL (8.4-10.2); Potassium 3.7 mmol/L (3.5-5.1); Total Bilirubin 1.2 mg/dL (0.2-1.3); Total Protein 7.7 g/dL (6.3-8.2)
--- NOTE | 2022-07-23 14:43 | ED ---
Fall HPI - General Chief Complaint: Fall Stated Complaint: fall Time Seen by Provider: 07/23/22 13:50 Source: patient Mode of arrival: ambulatory - History of Present Illness Initial Comments: 82-year-old male, alert and oriented, presents to the emergency room after a near syncopal episode while trying to have bowel movement on the toilet. His went in to check on him after he was in there for over 30 minutes and when he went to stand up he started fall forward hitting his head on the wood floor. She tried to keep him from falling. Did not lose consciousness. Denies any chest pain or difficulty breathing. Did sustain an abrasion to the left side of his face from his glasses and hematoma to the forehead. Patient does take Eliquis. Has a history of A. fib, hypertension and COPD, congestive heart failure with AICD pacemaker. MD Complaint: fall -: hour(s) Fall From: other (from sitting) Fall Witnessed: no Place Fall Occurred: home Loss of Consciousness: none Prolonged Down Time?: no Severity scale (1-10): 0 Context: other (trying to have bowel movement ) - Related Data Home Medications Medication Instructions Recorded Confirmed Apixaban [Eliquis] 5 mg PO BID 05/01/21 03/05/22 Atorvastatin [Lipitor] 80 mg PO DAILY@1600 05/01/21 03/09/22 Furosemide [Lasix] 20 mg PO BID 05/01/21 03/05/22 Losartan Potassium 50 mg PO HS 05/01/21 03/09/22 Previous Rx's Medication Instructions Recorded Metoprolol Succinate (ER) [Toprol 50 mg PO DAILY #90 tab 08/19/21 XL] Docusate [Colace] 100 mg PO DAILY #30 capsule 07/23/22 Allergies Allergy/AdvReac Type Severity Reaction Status Date / Time No Known Allergies Allergy Verified 07/23/22 13:41 Review of Systems ROS Statement: Those systems with pertinent positive or pertinent negative responses have been documented in the HPI. ROS Other: All systems not noted in ROS Statement are negative. Past Medical History Past Medical History: Atrial Fibrillation, Heart Failure, COPD, Hearing Disorder / Deafness, Hyperlipidemia, Hypertension Additional Past Medical History / Comment(s): Pt is very KOI in R ear and slightly KOI in L ear, anemia. History of Any Multi-Drug Resistant Organisms: None Reported Past Surgical History: Cardiac Ablation, Tonsillectomy Additional Past Surgical History / Comment(s): Pt has never had surgery Past Anesthesia/Blood Transfusion Reactions: No Reported Reaction Past Psychological History: No Psychological Hx Reported Smoking Status: Former smoker Past Alcohol Use History: None Reported Past Drug Use History: None Reported - Past Family History Father Family Medical History: No Reported History Mother Family Medical History: No Reported History General Exam Limitations: no limitations General appearance: alert, in no apparent distress Head exam: Present: other (hematoma left frontal) Eye exam: Present: normal appearance, PERRL, EOMI. Absent: scleral icterus, conjunctival injection, periorbital swelling, periorbital tenderness ENT exam: Present: mucous membranes moist Neck exam: Present: full ROM. Absent: tenderness, meningismus, lymphadenopathy, thyromegaly Respiratory exam: Absent: respiratory distress, accessory muscle use Cardiovascular Exam: Present: bradycardia GI/Abdominal exam: Present: soft. Absent: tenderness, rigid Extremities exam: Present: normal capillary refill. Absent: pedal edema Neurological exam: Present: alert, CN II-XII intact Expanded Patient oriented to: Present: person, place, time Speech: Present: fluid speech Cranial nerves: EOM's Intact: Normal, Gag Reflex: Normal, Tongue Deviation: Normal Motor strength exam: RUE: 5, LUE: 5, RLE: 5, LLE: 5 Eye Response: (4) open spontaneously Motor Response: (6) obeys commands Verbal Response: (5) oriented [place] Total: 15 Psychiatric exam: Present: normal affect, normal mood Skin exam: Present: warm, dry, normal color. Absent: cyanosis, diaphoretic, petechiae, pallor Course Vital Signs 07/23/22 07/23/22 07/23/22 13:37 14:51 15:47 Temperature 97.4 F L 98.0 F Pulse Rate 50 L 50 L 49 L Respiratory 18 14 18 Rate Blood Pressure 125/60 127/68 143/71 O2 Sat by Pulse 100 98 95 Oximetry Medical Decision Making - Medical Decision Making EKG shows a ventricular rate 49, MI interval 0.222, QRS 0.166, QTC 0.486, AV pacemaker Hemoglobin and hematocrit are stable. There is no evidence of leukocytosis. BUN is 30 creatinine 1.73, previous creatinine 1.7 on 03/04/[address]22 troponin negative at 0.[address] CT brain interpreted by me shows no evidence of intracranial bleed or fracture. Radiologist impression no acute intracranial process. Nonspecific white matter changes likely secondary to chronic small vessel ischemic disease. Small left forehead soft tissue contusion. No evidence of cervical spine fracture. Mild multilevel degenerative disc disease. The facial abrasion was cleansed and bacitracin dressing applied. Tetanus shot was updated at this visit. Denies any chest pain or difficulty in breathing. No focal neurological deficits. Denies any pain or discomfort. He'll be discharged home to follow up with his primary care doctor next week. Return to the emergency room with any new or concerning symptoms. Patient and family are agreeable to this plan of care. Case discussed with Dr Finney Was pt. sent in by a medical professional or institution (, PA, LEAD WELDER, urgent care, hospital, or half-way...) When possible be specific @ -No Did you speak to anyone other than the patient for history (EMS, parent, family, police, friend...)? What history was obtained from this source @ - and family at bedside Did you review nursing and triage notes (agree or disagree)? Why? @ -I reviewed and agree with nursing and triage notes Were old charts reviewed (outside hosp., previous admission, EMS record, old EKG, old radiological studies, urgent care reports/EKG's, half-way records)? Report findings @ -Previous cardiology notes and records, previous labs as above Differential Diagnosis (chest pain, altered mental status, abdominal pain women, abdominal pain men, vaginal bleeding, weakness, fever, dyspnea, syncope, headache, dizziness, GI bleed, back pain, seizure, CVA, palpatations, mental health, musculoskeletal)? @ -Differential Syncope: Valvular disease, hypertrophic cardiomyopathy, pulmonary embolism, tamponade, tachycardia, bradycardia, PR, hypovolemia, hemorrhage, dissection, anemia, intracranial hemorrhage, seizure, hypoglycemia, carbon monoxide poisoning, this is not meant to be an all-inclusive list. EKG interpreted by me (3pts min.). @ -As above X-rays interpreted by me (1pt min.). @ -None done CT interpreted by me (1pt min.). @ -Yes as above U/S interpreted by me (1pt. min.). @ -None done What testing was considered but not performed or refused? (CT, X-rays, U/S, labs)? Why? @ -None What meds were considered but not given or refused? Why? @ -None Did you discuss the management of the patient with other professionals (professionals i.e. , PA, LEAD WELDER, lab, RT, psych nurse, social work faculty member, management development specialist, teacher, airport operations officer, shelter case manager)? Give summary @ -No Was smoking cessation discussed for >3mins.? @ -No Was critical care preformed (if so, how long)? @ -No Were there social determinants of health that impacted care today? How? (Homelessness, low income, unemployed, alcoholism, drug addiction, transportation, low edu. Level, literacy, decrease access to med. care, intermediate, rehab)? @ -No Was there de-escalation of care discussed even if they declined (Discuss DNR or withdrawal of care, Hospice)? DNR status @ -No What co-morbidities impacted this encounter? (DM, HTN, Smoking, COPD, CAD, Cancer, CVA, ARF, Chemo, Hep., AIDS, mental health diagnosis, sleep apnea, morbid obesity)? @ -H of fibrillation, heart failure, COPD, hypertension, AV pacemaker, c ardiomyopathy Was patient admitted / discharged? Hospital course, mention meds given and route, prescriptions, significant lab abnormalities, going to OR and other pertinent info. @ -Discharged Undiagnosed new problem with uncertain prognosis? @ -No Drug Therapy requiring intensive monitoring for toxicity (Heparin, Nitro, Insulin, Cardizem)? @ -No Were any procedures done? @ -No Diagnosis/symptom? @ -Syncope, head injury, bradycardia Acute, or Chronic, or Acute on Chronic? @ -Acute Uncomplicated (without systemic symptoms) or Complicated (systemic symptoms)? @ -Uncomplicated Side effects of treatment? @ -No Exacerbation, Progression, or Severe Exacerbation? @ -No Poses a threat to life or bodily function? How? (Chest pain, USA, PR, pneumonia, PE, COPD, DKA, ARF, appy, cholecystitis, CVA, Diverticulitis, Homicidal, Suicidal, threat to staff... and all critical care pts) @ -No - Lab Data Result diagrams: 07/23/22 14:18 07/23/22 14:18 Lab Results 04/07/23 04/07/23 04/07/23 Range/Units 14:18 14:18 14:18 WBC 8.6 (3.8-10.6) k/uL RBC 3.54 L (4.30-5.90) m/uL Hgb 11.6 L (13.0-17.5) gm/dL Hct 33.3 L (39.0-53.0) % MCV 94.0 (80.0-100.0) fL MCH 32.7 (25.0-35.0) pg MCHC 34.8 (31.0-37.0) g/dL RDW 14.8 (11.5-15.5) % Plt Count 190 (150-450) k/uL MPV 8.4 Neutrophils % 76 % Lymphocytes % 13 % Monocytes % 6 % Eosinophils % 2 % Basophils % 0 % Neutrophils # 6.6 (1.3-7.7) k/uL Lymphocytes # 1.1 (1.0-4.8) k/uL Monocytes # 0.5 (0-1.0) k/uL Eosinophils # 0.2 (0-0.7) k/uL Basophils # 0.0 (0-0.2) k/uL Poikilocytosis Slight Sodium 139 (137-145) mmol/L Potassium 3.7 (3.5-5.1) mmol/L Chloride 102 (98-107) mmol/L Carbon Dioxide 29 (22-30) mmol/L Anion Gap 8 mmol/L BUN 30 H (9-20) mg/dL Creatinine 1.73 H (0.66-1.25) mg/dL Est GFR (CKD-EPI)AfAm 41 (>60 ml/min/1.73 sqM) Est GFR (CKD-EPI)NonAf 36 (>60 ml/min/1.73 sqM) Glucose 120 H (74-99) mg/dL Calcium 8.8 (8.4-10.2) mg/dL Total Bilirubin 1.2 (0.2-1.3) mg/dL AST 26 (17-59) U/L ALT 21 (4-49) U/L Alkaline Phosphatase 117 (38-126) U/L Troponin I 0.018 (0.000-0.034) ng/mL Total Protein 7.7 (6.3-8.2) g/dL Albumin 4.5 (3.5-5.0) g/dL - EKG Data -: EKG Interpreted by Me (Ventricular rate 49, MI interval 0.222, QRS 0.166, QTC 0.486, AV pacemaker) Disposition Clinical Impression: Fall, Syncope, Head injury Disposition: HOME SELF-CARE Condition: Good Instructions (If sedation given, give patient instructions): Syncope (ED), Fall Prevention for Older Adults (ED), Hematoma (ED) Additional Instructions: Follow-up with your primary care doctor and court of appeals judge on Tuesday. Return to the emergency room with any new or concerning symptoms. Use Colace as prescribed for stool softener. Prescriptions: Docusate [Colace] 100 mg PO DAILY #30 capsule Is patient prescribed a controlled substance at d/c from ED?: No Referrals: Gasper Martinez MD [Primary Care Provider] - 1-2 days Time of Disposition: 14:58
--- NOTE | 2022-07-23 14:52 | CT ---
EXAMINATION TYPE: CT brain cspine wo con CT DLP: 1363.7 mGycm, Automated exposure control for dose reduction was used. DATE OF EXAM: 07/23/2022 2:40 PM COMPARISON: CT brain 05/07/2021. CLINICAL INDICATION:Male, 82 years old with history of pain; pain after fall TECHNIQUE: Brain: Multiple axial CT images of the brain were obtained without IV contrast. Cspine: Axial CT images from the skull base to the inferior aspect of T2 we obtained without intraven ous contrast. Coronal and sagittal reformatted images were also reviewed. FINDINGS: Brain: Extra-axial spaces: No abnormal extra-axial fluid collections. Ventricular system: Within normal limits Cerebral parenchyma: Cerebral atrophy. No acute intraparenchymal hemorrhage or mass effect. The perez -white junction is well differentiated. Scattered hypoattenuating areas are seen within the white mat ter. Cerebellum: Unremarkable. Mass effect: No evidence of midline shift. Intracranial vasculature: Atherosclerotic calcifications of the intracranial vessels. Soft tissues: Small left forehead soft tissue contusion. Calvarium/osseous structures: No depressed skull fracture. Paranasal sinuses and mastoid air cells: Clear. Visualized orbits: Orbital contents are intact. Cervical spine: Fracture: None. Osseous structures: Multilevel degenerative disc disease changes with endplate spurring and disc oste ophyte complex's. Multilevel facet arthropathy. Posterior ankylosis of C3-C4 vertebral bodies. Vertebral alignment: Within normal limits. Spinal canal/Neural Foramina: Disc osteophyte complexes at C5-C6 with at least mild spinal canal sten osis. No evidence for significant neural foraminal stenosis. Neck soft tissues: Prevertebral soft tissues are within normal limits. Other: The airway is patent. The lung apices are clear. Partial visualization of left chest cardiac p acemaker leads. Atherosclerotic calcification of the bilateral carotid bulbs. IMPRESSION: 1. No acute intracranial process. 2. Nonspecific white matter changes, likely secondary to chronic small vessel ischemic disease. 3. Small left forehead soft tissue contusion. 4. No evidence of cervical spine fracture. 5. Mild multilevel degenerative disc disease.
[2022-07-23 15:50] VITALS: BP 143/71; PULSE 49; RESP 18; TEMP 98
[2022-07-23] MEDS ORDERED: DIPH,PERTUS(ACELL)TETVAC-LF 0.5 ML VIAL IM ONE (15:54)
[2022-07-23] MEDS ORDERED: BACITRACIN OINT 1 EACH PACKET TOPICAL ONE (15:54)
== END 2022-07-23 16:06 | disposition home or self-care (01) ==
LOC: EC 13:35
DX: S00.83XA Contusion of other part of head, initial encounter (principal); R55 Syncope and collapse; J44.9 Chronic obstructive pulmonary disease, unspecified; I48.91 Unspecified atrial fibrillation; I11.0 Hypertensive heart disease with heart failure; I50.9 Heart failure, unspecified; E78.5 Hyperlipidemia, unspecified; Z87.891 Personal history of nicotine dependence; Z79.01 Long term (current) use of anticoagulants; Z79.899 Other long term (current) drug therapy; Z23 Encounter for immunization; W18.09XA Striking against other object with subsequent fall, initial encounter; Y92.009 Unspecified place in unspecified non-institutional (private) residence as the place of occurrence of the external cause
CPT/HCPCS: 36415; 70450; 72125; 80053; 84484; 85025; 90471; 90715; 93005; 99285

== ENCOUNTER → 2022-08-11 | Outpatient (CLI) | payer MEDICARE, OTHER ==
[2022-08-11 16:14] LABS: African American GFR (CKD) 45.2 (60.0-200.0); Anion Gap 8.4 mmol/L (10.00-18.00); BUN/Creat Ratio 13.13 Ratio (12.00-20.00); Calcium 9.6 mg/dL (8.7-10.3); Carbon Dioxide 23.6 mmol/L (20.0-27.5); Potassium 4.8 mmol/L (3.5-5.5)
== END | disposition home or self-care (01) ==
LOC: LABWHC1 10:10
PROVIDERS: ATTEND Nurse Practitioner
DX: I10 Essential (primary) hypertension (principal)
CPT/HCPCS: 36415; 80048

== ENCOUNTER 2024-05-03 17:50 | Emergency (ER) | payer MEDICARE, OTHER ==
--- NOTE | 2024-05-03 18:46 | ED ---
Syncope HPI - General Source: patient, RN notes reviewed, Caregiver Mode of arrival: wheelchair Limitations: no limitations - History of Present Illness MD Complaint: loss of consciousness Witnessed: no <AnjuHan - Last Filed: 05/03/24 18:42> - General Source: patient, RN notes reviewed <Gail Gardner - Last Filed: 05/04/24 01:25> - General Stated Complaint: passed out Time Seen by Provider: 05/03/24 18:04 - History of Present Illness Initial Comments: Quick note: This is an 84-year-old male with history of A-fib, heart failure, pacemaker, COPD and IQUGMIUT presenting with neighbor for loss of consciousness 1 hour ago. Neighbor states patient suffered an unwitnessed loss of consciousness while walking outside to his mailbox with unknown duration of downtime. States patient managed to drag himself to his porch where he called his family who advised that he drive himself to the hospital. Neighbor states he drove to her house and she was able to drive him to the ER for further evaluation. Neighbor states patient is shaking and feeling weaker than usual. Patient denies sensation of dizziness/lightheadedness, chest pain, palpitations, dyspnea/SOB prior to syncopal episode. (Han Rene) 84-year-old male with history of congestive heart failure, atrial fibrillation, and pacemaker presenting for evaluation of episode of shakiness 5 hours ago. States he was walking to the mailbox when he suddenly began to have bilateral shaking in his arms and legs that caused him to fall to the ground. Denies hitting head or losing consciousness. States he drives himself to his house and drove to his neighbors house who took him to the hospital. States that shaking lasted about 4-5 minutes and has resolved. Denies any current pain or symptoms. Denies lightheadedness, chest pain, shortness of breath, heart palpitations. (Gail Gardner) - Related Data Home Medications Medication Instructions Recorded Confirmed Apixaban [Eliquis] 5 mg PO BID 05/01/21 03/05/22 Atorvastatin [Lipitor] 80 mg PO DAILY@1600 05/01/21 03/09/22 Furosemide [Lasix] 20 mg PO BID 05/01/21 03/05/22 Losartan Potassium 50 mg PO HS 05/01/21 03/09/22 Previous Rx's Medication Instructions Recorded Metoprolol Succinate (ER) [Toprol 50 mg PO DAILY #90 tab 08/19/21 XL] Docusate [Colace] 100 mg PO DAILY #30 capsule 07/23/22 Allergies Allergy/AdvReac Type Severity Reaction Status Date / Time No Known Allergies Allergy Verified 05/03/24 18:58 Review of Systems ROS Other: All systems not noted in ROS Statement are negative. <Han Rene - Last Filed: 05/03/24 18:42> ROS Other: All systems not noted in ROS Statement are negative. <Gail Gardner - Last Filed: 05/04/24 01:25> ROS Statement: Those systems with pertinent positive or pertinent negative responses have been documented in the HPI. Past Medical History Past Medical History: Atrial Fibrillation, Heart Failure, COPD, Hearing Disorder / Deafness, Hyperlipidemia, Hypertension Additional Past Medical History / Comment(s): Pt is very IQUGMIUT in R ear and slightly IQUGMIUT in L ear, anemia. History of Any Multi-Drug Resistant Organisms: None Reported Past Surgical History: Cardiac Ablation, Tonsillectomy Additional Past Surgical History / Comment(s): Pt has never had surgery Past Anesthesia/Blood Transfusion Reactions: No Reported Reaction Past Psychological History: No Psychological Hx Reported Smoking Status: Former smoker Past Alcohol Use History: None Reported Past Drug Use History: None Reported - Past Family History Father Family Medical History: No Reported History Additional Family Medical History / Comment(s): . Mother Family Medical History: No Reported History Additional Family Medical History / Comment(s): . <Han Rene - Last Filed: 05/03/24 18:42> General Exam <Han Rene - Last Filed: 05/03/24 18:42> General appearance: alert, in no apparent distress Head exam: Present: atraumatic, normocephalic, normal inspection Eye exam: Present: normal appearance, PERRL, EOMI. Absent: scleral icterus, c onjunctival injection, periorbital swelling ENT exam: Present: normal exam, mucous membranes moist Respiratory exam: Present: normal lung sounds bilaterally. Absent: respiratory distress, wheezes, rales, rhonchi, stridor Cardiovascular Exam: Present: regular rate, normal rhythm, normal heart sounds. Absent: systolic murmur, diastolic murmur, rubs, gallop, clicks GI/Abdominal exam: Present: soft, normal bowel sounds. Absent: distended, tenderness, guarding, rebound, rigid Neurological exam: Present: alert, oriented X3, CN II-XII intact Psychiatric exam: Present: normal affect, normal mood Skin exam: Present: warm, dry, intact, normal color. Absent: rash <Gail Gardner - Last Filed: 05/04/24 01:25> - General Exam Comments Initial Comments: Visual Physical Exam Vital signs reviewed General: Well-appearing, nontoxic, no acute distress. Patient seated in wheelchair Head: Normocephalic, atraumatic Eyes: PERRLA, EOMI ENT: Airway patent Chest: Nonlabored breathing Skin: No visual rash, normal skin tone Neuro: Alert and oriented 3 Musculoskeletal: No gross abnormalities (Han Rene) Course Vital Signs 05/03/24 05/03/24 18:45 22:28 Temperature 98.8 F Pulse Rate 73 72 Respiratory 20 19 Rate Blood Pressure 97/58 102/64 O2 Sat by Pulse 99 99 Oximetry EKG Findings - EKG Results: EKG: interpreted by ERMD (EKG reveals. Ventricular rate 69 bpm, W[place] interval 175, QRS duration 156, QT/QTc 441/459) <Gail Gardner - Last Filed: 05/04/24 01:25> Medical Decision Making <Han Rene - Last Filed: 05/03/24 18:42> - Lab Data Result diagrams: 05/03/24 19:14 05/03/24 19:14 <JjGail - Last Filed: 05/04/24 01:25> - Medical Decision Making I completed the quick note portion of this chart signed JOSHUA Cooper (Han Rene) Was pt. sent in by a medical professional or institution (CHAITANYA Chinchilla, [employer]SE SUPERVISOR, urgent care, hospital, or intermediate...) When possible be specific @ -No Did you speak to anyone other than the patient for history (EMS, parent, family, police, friend...)? What history was obtained from this source @ -Neighbor supplemented history Did you review nursing and triage notes (agree or disagree)? Why? @ -I reviewed and agree with nursing and triage notes Were old charts reviewed (outside hosp., previous admission, EMS record, old EKG, old radiological studies, urgent care reports/EKG's, intermediate records)? Report findings @ -No old charts were reviewed Differential Diagnosis (chest pain, altered mental status, abdominal pain women, abdominal pain men, vaginal bleeding, weakness, fever, dyspnea, syncope, headache, dizziness, GI bleed, back pain, seizure, CVA, palpatations, mental health, musculoskeletal)? @ -Differential Musculoskeletal Muscular strain, contusion, ligament sprain, fracture, arthritis, septic arthritis, bursitis, cellulitis, muscle spasm, nerve compression, DVT, arterial occlusion, herpes zoster, electrolyte abnormality, tumor.... This is not meant to be in all inclusive list EKG interpreted by me (3pts min.). @ -As above X-rays interpreted by me (1pt min.). @ -Chest x-ray reveals no acute process CT interpreted by me (1pt min.). @ -None done U/S interpreted by me (1pt. min.). @ -None done What testing was considered but not performed or refused? (CT, X-rays, U/S, labs)? Why? @ -None What meds were considered but not given or refused? Why? @ -None Did you discuss the management of the patient with other professionals (professionals i.e. , PA, [employer] SUPERVISOR, lab, RT, psych nurse, social media analyst, pullman conductor, teacher, business banking officer, director of casework department)? Give summary @ -No Was smoking cessation discussed for >3mins.? @ -No Was critical care preformed (if so, how long)? @ -No Were there social determinants of health that impacted care today? How? (Homelessness, low income, unemployed, alcoholism, drug addiction, transportation, low edu. Level, literacy, decrease access to med. care, care home, rehab)? @ -No Was there de-escalation of care discussed even if they declined (Discuss DNR or withdrawal of care, Hospice)? DNR status @ -No What co-morbidities impacted this encounter? (DM, HTN, Smoking, COPD, CAD, Cancer, CVA, ARF, Chemo, Hep., AIDS, mental health diagnosis, sleep apnea, morbid obesity)? @ -None Was patient admitted / discharged? Hospital course, mention meds given and route, prescriptions, significant lab abnormalities, going to OR and other pertinent info. @ -Discharge. This is a 84-year-old male presenting for episode of full body shakiness resulting in a mechanical fall. Denies hitting head or losing consci ousness. He is currently asymptomatic. No injuries from the fall. Neuro examination is unremarkable. EKG reveals no sign of ischemia. Lab work remarkable for hemoglobin 10.7 comparable to baseline, troponin 0.018 comparable to baseline. Chest x-ray reveals no acute process. Results discussed with patient. Patient remains asymptomatic and states he would like to be discharged. I believe this is reasonable at this time. Appropriate return precautions and follow-up care discussed with patient. Case was discussed with my ED attending Dr. Jeffery Undiagnosed new problem with uncertain prognosis? @ -No Drug Therapy requiring intensive monitoring for toxicity (Heparin, Nitro, Insulin, Cardizem)? @ -No Were any procedures done? @ -No Diagnosis/symptom? @ -Fall Acute, or Chronic, or Acute on Chronic? @ -Acute Uncomplicated (without systemic symptoms) or Complicated (systemic symptoms)? @ -Uncomplicated Side effects of treatment? @ -No Exacerbation, Progression, or Severe Exacerbation? @ -No Poses a threat to life or bodily function? How? (Chest pain, [place], [place], pneumonia, PE, COPD, DKA, ARF, appy, cholecystitis, CVA, Diverticulitis, Homicidal, Suicidal, threat to staff... and all critical care pts) @ -No (Gail Gardner) - Lab Data Lab Results 05/03/24 05/03/24 05/03/24 Range/Units 19:14 19:14 19:14 WBC 4.8 (3.8-10.6) k/uL RBC 3.15 L (4.30-5.90) m/uL Hgb 10.7 L (13.0-17.5) gm/dL Hct 31.3 L (39.0-53.0) % MCV 99.3 (80.0-100.0) fL MCH 34.0 (25.0-35.0) pg MCHC 34.3 (31.0-37.0) g/dL RDW 15.7 H (11.5-15.5) % Plt Count 124 L (150-450) k/uL MPV 8.3 Neutrophils % 70 % Lymphocytes % 16 % Monocytes % 10 % Eosinophils % 3 % Basophils % 0 % Neutrophils # 3.4 (1.3-7.7) k/uL Lymphocytes # 0.8 L (1.0-4.8) k/uL Monocytes # 0.5 (0-1.0) k/uL Eosinophils # 0.1 (0-0.7) k/uL Basophils # 0.0 (0-0.2) k/uL Macrocytosis Slight PT 11.6 (10.0-12.5) sec INR 1.1 (<1.2) APTT 24.9 (22.0-30.0) sec Sodium 138 (137-145) mmol/L Potassium 4.0 (3.5-5.1) mmol/L Chloride 107 (98-107) mmol/L Carbon Dioxide 24 (22-30) mmol/L Anion Gap 7 mmol/L BUN 14 (9-20) mg/dL Creatinine 1.22 (0.66-1.25) mg/dL Est GFR (CKD-EPI)AfAm 62 (>60 ml/min/1.73 sqM) Est GFR (CKD-EPI)NonAf 54 (>60 ml/min/1.73 sqM) Glucose 128 H (74-99) mg/dL Plasma Lactic Acid Lyndon (0.7-2.0) mmol/L Calcium 9.0 (8.4-10.2) mg/dL Magnesium 2.2 (1.6-2.3) mg/dL Total Bilirubin 1.1 (0.2-1.3) mg/dL AST 24 (17-59) U/L ALT 16 (4-49) U/L Alkaline Phosphatase 102 (38-126) U/L Troponin I (0.000-0.034) ng/mL Total Protein 6.3 (6.3-8.2) g/dL Albumin 3.7 (3.5-5.0) g/dL 05/03/24 05/03/24 Range/Units 19:14 19:14 WBC (3.8-10.6) k/uL RBC (4.30-5.90) m/uL Hgb (13.0-17.5) gm/dL Hct (39.0-53.0) % MCV (80.0-100.0) fL MCH (25.0-35.0) pg MCHC (31.0-37.0) g/dL RDW (11.5-15.5) % Plt Count (150-450) k/uL MPV Neutrophils % % Lymphocytes % % Monocytes % % Eosinophils % % Basophils % % Neutrophils # (1.3-7.7) k/uL Lymphocytes # (1.0-4.8) k/uL Monocytes # (0-1.0) k/uL Eosinophils # (0-0.7) k/uL Basophils # (0-0.2) k/uL Macrocytosis PT (10.0-12.5) sec INR (<1.2) APTT (22.0-30.0) sec Sodium (137-145) mmol/L Potassium (3.5-5.1) mmol/L Chloride (98-107) mmol/L Carbon Dioxide (22-30) mmol/L Anion Gap mmol/L BUN (9-20) mg/dL Creatinine (0.66-1.25) mg/dL Est GFR (CKD-EPI)AfAm (>60 ml/min/1.73 sqM) Est GFR (CKD-EPI)NonAf (>60 ml/min/1.73 sqM) Glucose (74-99) mg/dL Plasma Lactic Acid Lyndon 1.1 (0.7-2.0) mmol/L Calcium (8.4-10.2) mg/dL Magnesium (1.6-2.3) mg/dL Total Bilirubin (0.2-1.3) mg/dL AST (17-59) U/L ALT (4-49) U/L Alkaline Phosphatase (38-126) U/L Troponin I 0.018 (0.000-0.034) ng/mL Total Protein (6.3-8.2) g/dL Albumin (3.5-5.0) g/dL Disposition <Han Rene - Last Filed: 05/03/24 18:42> Is patient prescribed a controlled substance at d/c from ED?: No Time of Disposition: 23:12 <Gail Gardner - Last Filed: 05/04/24 01:25> Clinical Impression: Fall Disposition: HOME SELF-CARE Condition: Stable Additional Instructions: Follow-up with PCP as discussed. Please return to the Emergency Department if symptoms worsen or any other concerns. Referrals: Gasper Martinez MD [Primary Care Provider] - 1-2 days
[2024-05-03 18:58] VITALS: TEMP 98.8
[2024-05-03 19:26] LABS: Basophils % (A) 0 %; Eosinophils # (A) 0.1 k/uL (0-0.7); Eosinophils % (A) 3 %; HCT 31.3 % (39.0-53.0); HGB 10.7 gm/dL (13.0-17.5); Lymphocytes # (A) 0.8 k/uL (1.0-4.8); Lymphocytes % (A) 16 %; MCHC 34.3 g/dL (31.0-37.0); MCV 99.3 fL (80.0-100.0); Macrocytosis Slight; Mean Platelet Volume 8.3; Monocytes # (A) 0.5 k/uL (0-1.0); Monocytes % (A) 10 %; Neutrophils # (A) 3.4 k/uL (1.3-7.7); Neutrophils % (A) 70 %; Platelet Count 124 k/uL (150-450); RBC 3.15 m/uL (4.30-5.90); RDW 15.7 % (11.5-15.5); WBC 4.8 k/uL (3.8-10.6)
[2024-05-03 19:34] LABS: INR 1.1 (<1.2); Partial Thromboplastin Time 24.9 sec (22.0-30.0); Prothrombin Time 11.6 sec (10.0-12.5)
[2024-05-03 19:40] LABS: ALT 16 U/L (4-49); AST 24 U/L (17-59); African American GFR (CKD) 62 (>60 ml/min/1.73 sqM); Albumin 3.7 g/dL (3.5-5.0); Alkaline Phosphatase 102 U/L (38-126); Anion Gap 7 mmol/L; Blood Urea Nitrogen 14 mg/dL (9-20); Carbon Dioxide 24 mmol/L (22-30); Chloride 107 mmol/L (98-107); Glucose 128 mg/dL (74-99); Magnesium 2.2 mg/dL (1.6-2.3); Non-African American GFR(CKD) 54 (>60 ml/min/1.73 sqM); Sodium 138 mmol/L (137-145); Total Bilirubin 1.1 mg/dL (0.2-1.3); Total Protein 6.3 g/dL (6.3-8.2)
--- NOTE | 2024-05-03 20:14 | XR ---
EXAMINATION TYPE: XR chest 2V DATE OF EXAM: 05/03/2024 7:49 PM COMPARISON: 08/18/2021 CLINICAL INDICATION: Male, 84 years old with history of Syncope, TECHNIQUE: XR chest 2V view(s) obtained. FINDINGS: The heart size is normal. Pacemaker overlies left chest The pulmonary vasculature is normal. The lungs are clear. IMPRESSION: 1. No acute pulmonary process. [facility], , 05/03/2024 8:11 PM
[2024-05-03 22:31] VITALS: BP 102/64; PULSE 72; RESP 19
== END 2024-05-03 23:22 | disposition home or self-care (01) ==
LOC: EC 17:50
DX: Z04.3 Encounter for examination and observation following other accident (principal); I48.91 Unspecified atrial fibrillation; I50.9 Heart failure, unspecified; J44.9 Chronic obstructive pulmonary disease, unspecified; Z79.01 Long term (current) use of anticoagulants; Z79.899 Other long term (current) drug therapy; Z87.891 Personal history of nicotine dependence; Z95.0 Presence of cardiac pacemaker
CPT/HCPCS: 36415; 71046; 80053; 82550; 82552; 83605; 83735; 84484; 85025; 85610; 85730; 93005; 99284

== ENCOUNTER 2024-05-12 12:49 | Inpatient (IN) | payer MEDICARE, OTHER ==
--- NOTE | 2024-05-12 12:58 | ED ---
General Adult HPI - General Chief complaint: Fall Stated complaint: AMS Time Seen by Provider: 05/12/24 12:56 Source: patient, EMS Mode of arrival: EMS Limitations: no limitations - History of Present Illness Initial comments: Patient brought to the ED by ambulance for evaluation. Patient states that he had a "dizzy episode" while standing this afternoon. Patient states that he has had 1 similar episode in the past. Patient states that he then laid on the floor as his called for an ambulance. Patient denies LOC or falling. Patient denies feeling dizzy or lightheaded currently. Patient was placed in a c-collar by EMS because they apparently found the patient on the floor, and there was concern for possible fall. Patient denies having any pain or symptoms at this time. Patient denies trauma or injury, fever or chills, headache, focal numbness/weakness/neuro deficit, visual changes, difficulty, neck/back/extremity pain, chest pain, dyspnea, cough or cold symptoms, palpitations, abdominal pain, nausea/vomiting/diarrhea, bloody or melanotic stool, dysuria or urinary symptoms, leg or calf swelling or pain, or any other symptoms or complaints. Patient is on Eliquis anticoagulation therapy. - Related Data Home Medications Medication Instructions Recorded Confirmed Apixaban [Eliquis] 5 mg PO BID 05/01/21 03/05/22 Atorvastatin [Lipitor] 80 mg PO DAILY@1600 05/01/21 03/09/22 Furosemide [Lasix] 20 mg PO BID 05/01/21 03/05/22 Losartan Potassium 50 mg PO HS 05/01/21 03/09/22 Previous Rx's Medication Instructions Recorded Metoprolol Succinate (ER) [Toprol 50 mg PO DAILY #90 tab 08/19/21 XL] Docusate [Colace] 100 mg PO DAILY #30 capsule 07/23/22 Allergies Allergy/AdvReac Type Severity Reaction Status Date / Time No Known Allergies Allergy Verified 05/12/24 12:56 Review of Systems ROS Statement: Those systems with pertinent positive or pertinent negative responses have been documented in the HPI. ROS Other: All systems not noted in ROS Statement are negative. Past Medical History Past Medical History: Atrial Fibrillation, Heart Failure, COPD, Hearing Disorder / Deafness, Hyperlipidemia, Hypertension Additional Past Medical History / Comment(s): Pt is very [place] in R ear and slightly [place] in L ear, anemia. History of Any Multi-Drug Resistant Organisms: None Reported Past Surgical History: Cardiac Ablation, Tonsillectomy Additional Past Surgical History / Comment(s): Pt has never had surgery Past Anesthesia/Blood Transfusion Reactions: No Reported Reaction Past Psychological History: No Psychological Hx Reported Smoking Status: Former smoker Past Alcohol Use History: None Reported Past Drug Use History: None Reported - Past Family History Father Family Medical History: No Reported History Additional Family Medical History / Comment(s): . Mother Family Medical History: No Reported History Additional Family Medical History / Comment(s): . General Exam Limitations: no limitations General appearance: alert, in no apparent distress Head exam: Present: atraumatic, normocephalic Eye exam: Present: normal appearance, PERRL, EOMI ENT exam: Present: mucous membranes moist, TM's normal bilaterally Neck exam: Present: other (Trachea is in midline; c-collar is in place; no cervical step-off deformity is noted). Absent: tenderness Respiratory exam: Present: normal lung sounds bilaterally. Absent: respiratory distress, wheezes, rales, rhonchi, stridor, chest wall tenderness Cardiovascular Exam: Present: regular rate, normal rhythm, normal heart sounds, other (Normal radial and dorsalis pedis pulses bilaterally) GI/Abdominal exam: Present: soft. Absent: distended, tenderness, guarding Extremities exam: Present: normal inspection, full ROM, other (Pelvis is stable and nontender). Absent: tenderness, pedal edema, calf tenderness Back exam: Present: normal inspection. Absent: tenderness Neurological exam: Present: alert, oriented X3, CN II-XII intact. Absent: motor sensory deficit Psychiatric exam: Present: normal affect Skin exam: Present: warm, dry, intact, normal color Course Vital Signs 05/12/24 05/12/24 12:50 14:05 Temperature 97.8 F Pulse Rate 74 53 L Respiratory 18 20 Rate Blood Pressure 108/76 93/41 O2 Sat by Pulse 92 L 94 L Oximetry - Reevaluation(s) Reevaluation #1: 05/12/24 15:52 Patient denies development of any new symptoms while in the ED. Patient remains alert and breathing comfortably. Patient is aware of his test results, and he agrees with hospital admission at this time. 05/12/24 16:13 Case, H&P, test results and ED management thus far were discussed with Dr. Ramirez. He accepts hospital admission. He agrees with cardiology consultation. He has no further recommendations at this time. EKG Findings - EKG Comments: EKG Findings:: ED physician interpretation (interpreted by me): Ventricular paced rhythm, ventricular rate of 68 bpm, QRS duration of 144 ms Medical Decision Making - Medical Decision Making Was pt. sent in by a medical professional or institution (, PA, MASSAGE THERAPY INSTRUCTOR, urgent care, hospital, or fdc...) When possible be specific @ -No Did you speak to anyone other than the patient for history (EMS, parent, family, police, friend...)? What history was obtained from this source @ -No Did you review nursing and triage notes (agree or disagree)? Why? @ -I reviewed and agree with nursing and triage notes Were old charts reviewed (outside hosp., previous admission, EMS record, old EKG, old radiological studies, urgent care reports/EKG's, fdc records)? Report findings @ -No old charts were reviewed Differential Diagnosis (chest pain, altered mental status, abdominal pain women, abdominal pain men, vaginal bleeding, weakness, fever, dyspnea, syncope, headache, dizziness, GI bleed, back pain, seizure, CVA, palpatations, mental health, musculoskeletal)? @ -Differential Dizziness: Benign paroxysmal positional vertigo, Meniere's disease, acoustic neuroma, vertebrobasilar insufficiency, cerebellar stroke, hypovolemia, arrhythmia, coronary artery syndrome, anemia, [place], fall, intracranial hemorrhage, this is not meant to be an all-inclusive list EKG interpreted by me (3pts min.). @ -As above X-rays interpreted by me (1pt min.). @ -Chest x-ray was reviewed myself and shows no acute abnormality. I agree with the radiologist's interpretation as above. CT interpreted by me (1pt min.). @ -Noncontrast head and cervical spine CTs were reviewed myself and showed no definite acute traumatic abnormalities. I agree with the radiologist's interpr etations as above. U/S interpreted by me (1pt. min.). @ -None done What testing was considered but not performed or refused? (CT, X-rays, U/S, labs)? Why? @ -None What meds were considered but not given or refused? Why? @ -None Did you discuss the management of the patient with other professionals (professionals i.e. , PA, MASSAGE THERAPY INSTRUCTOR, lab, RT, psych nurse, social service assistant, manager installation, teacher, ambulance officer, patient case coordinator)? Give summary @ -As above. Was smoking cessation discussed for >3mins.? @ -No Was critical care preformed (if so, how long)? @ -Yes, 35 minutes. Were there social determinants of health that impacted care today? How? (Homelessness, low income, unemployed, alcoholism, drug addiction, transportation, low edu. Level, literacy, decrease access to med. care, custodial, rehab)? @ -No Was there de-escalation of care discussed even if they declined (Discuss DNR or withdrawal of care, Hospice)? DNR status @ -No What co-morbidities impacted this encounter? (DM, HTN, Smoking, COPD, CAD, Cancer, CVA, ARF, Chemo, Hep., AIDS, mental health diagnosis, sleep apnea, morbid obesity)? @ -None Was patient admitted / discharged? Hospital course, mention meds given and route, prescriptions, significant lab abnormalities, going to OR and other pertinent info. @ -Patient's imaging studies are negative for acute traumatic abnormalities. Patient's troponin is minimally elevated. Patient denies having any chest pain or dyspnea. Patient's EKG shows a ventricular paced rhythm. Patient has been treated with a dose of aspirin in the ED. Will admit the patient to the hospital for further evaluation/management, cardiology consultation, serial troponins and cardiac monitoring. Patient agrees with hospital admission at this time. Dr. Ramirez has accepted hospital admission. Undiagnosed new problem with uncertain prognosis? @ -No Drug Therapy requiring intensive monitoring for toxicity (Heparin, Nitro, Insulin, Cardizem)? @ -No Were any procedures done? @ -No Diagnosis/symptom? @ -Dizziness, mildly elevated troponin Acute, or Chronic, or Acute on Chronic? @ -Acute Uncomplicated (without systemic symptoms) or Complicated (systemic symptoms)? @ -Default Side effects of treatment? @ -No Exacerbation, Progression, or Severe Exacerbation? @ -No Poses a threat to life or bodily function? How? (Chest pain, [place], [place], pneumonia, PE, COPD, DKA, ARF, appy, cholecystitis, CVA, Diverticulitis, Homicidal, Suicidal, threat to staff... and all critical care pts) @ -Yes, possibly - Lab Data Result diagrams: 05/12/24 13:16 05/12/24 13:16 Lab Results 05/12/24 05/12/24 05/12/24 Range/Units 13:16 13:16 13:16 WBC 7.9 (3.8-10.6) k/uL RBC 3.03 L (4.30-5.90) m/uL Hgb 10.1 L (13.0-17.5) gm/dL Hct 29.8 L (39.0-53.0) % MCV 98.2 (80.0-100.0) fL MCH 33.4 (25.0-35.0) pg MCHC 34.0 (31.0-37.0) g/dL RDW 15.9 H (11.5-15.5) % Plt Count 133 L (150-450) k/uL MPV 8.4 Neutrophils % 80 % Lymphocytes % 12 % Monocytes % 5 % Eosinophils % 1 % Basophils % 0 % Neutrophils # 6.3 (1.3-7.7) k/uL Lymphocytes # 1.0 (1.0-4.8) k/uL Monocytes # 0.4 (0-1.0) k/uL Eosinophils # 0.1 (0-0.7) k/uL Basophils # 0.0 (0-0.2) k/uL PT 12.1 (10.0-12.5) sec INR 1.1 (<1.2) APTT 28.4 (22.0-30.0) sec Sodium 138 (137-145) mmol/L Potassium 3.7 (3.5-5.1) mmol/L Chloride 105 (98-107) mmol/L Carbon Dioxide 23 (22-30) mmol/L Anion Gap 10 mmol/L BUN 24 H (9-20) mg/dL Creatinine 1.39 H (0.66-1.25) mg/dL Est GFR (CKD-EPI)AfAm 53 (>60 ml/min/1.73 sqM) Est GFR (CKD-EPI)NonAf 46 (>60 ml/min/1.73 sqM) Glucose 124 H (74-99) mg/dL Calcium 9.0 (8.4-10.2) mg/dL Total Bilirubin 1.7 H (0.2-1.3) mg/dL AST 22 (17-59) U/L ALT 14 (4-49) U/L Alkaline Phosphatase 73 (38-126) U/L Troponin I (0.000-0.034) ng/mL Total Protein 6.2 L (6.3-8.2) g/dL Albumin 3.6 (3.5-5.0) g/dL 05/12/24 Range/Units 13:16 WBC (3.8-10.6) k/uL RBC (4.30-5.90) m/uL Hgb (13.0-17.5) gm/dL Hct (39.0-53.0) % MCV (80.0-100.0) fL MCH (25.0-35.0) pg MCHC (31.0-37.0) g/dL RDW (11.5-15.5) % Plt Count (150-450) k/uL MPV Neutrophils % % Lymphocytes % % Monocytes % % Eosinophils % % Basophils % % Neutrophils # (1.3-7.7) k/uL Lymphocytes # (1.0-4.8) k/uL Monocytes # (0-1.0) k/uL Eosinophils # (0-0.7) k/uL Basophils # (0-0.2) k/uL PT (10.0-12.5) sec INR (<1.2) APTT (22.0-30.0) sec Sodium (137-145) mmol/L Potassium (3.5-5.1) mmol/L Chloride (98-107) mmol/L Carbon Dioxide (22-30) mmol/L Anion Gap mmol/L BUN (9-20) mg/dL Creatinine (0.66-1.25) mg/dL Est GFR (CKD-EPI)AfAm (>60 ml/min/1.73 sqM) Est GFR (CKD-EPI)NonAf (>60 ml/min/1.73 sqM) Glucose (74-99) mg/dL Calcium (8.4-10.2) mg/dL Total Bilirubin (0.2-1.3) mg/dL AST (17-59) U/L ALT (4-49) U/L Alkaline Phosphatase (38-126) U/L Troponin I 0.059 H* (0.000-0.034) ng/mL Total Protein (6.3-8.2) g/dL Albumin (3.5-5.0) g/dL - Radiology Data Noncontrast CT head/cervical spine: 1. Head CT: No acute bleed or mass effect. Moderate to marked generalized atrophy. 2. CT cervical spine: No acute trauma. Advanced degenerative disc disease and osteoarthritic changes of facet joints and uncovertebral joints as described above. No significant interval change compared to previous. Chest x-ray: No acute cardiopulmonary disease/process. Critical Care Time Critical Care Time: Yes Total Critical Care Time: 35 Disposition Clinical Impression: Dizziness, Elevated troponin Dis[facility] Condition: Stable Is patient prescribed a controlled substance at d/c from ED?: No Referrals: Gasper Martinez MD [Primary Care Provider] - 1-2 days Time of Disposition: 16:13
[2024-05-12 13:28] LABS: Basophils % (A) 0 %; Eosinophils # (A) 0.1 k/uL (0-0.7); Eosinophils % (A) 1 %; HCT 29.8 % (39.0-53.0); HGB 10.1 gm/dL (13.0-17.5); Lymphocytes % (A) 12 %; MCH 33.4 pg (25.0-35.0); MCV 98.2 fL (80.0-100.0); Mean Platelet Volume 8.4; Monocytes # (A) 0.4 k/uL (0-1.0); Monocytes % (A) 5 %; Neutrophils # (A) 6.3 k/uL (1.3-7.7); Neutrophils % (A) 80 %; Platelet Count 133 k/uL (150-450); RBC 3.03 m/uL (4.30-5.90); RDW 15.9 % (11.5-15.5); WBC 7.9 k/uL (3.8-10.6)
--- NOTE | 2024-05-12 13:40 | CT ---
EXAMINATION TYPE: CT brain luan wo con DATE OF EXAM: 05/12/2024 COMPARISON: 07/23/2022 CLINICAL INDICATION: Male, 84 years old with history of dizziness; [facility], dizzy with fall TECHNIQUE: CT scan of the head and cervical spine are performed without contrast. CT DLP: 1305.[address] CTDI: mGy Automated exposure control for dose reduction was used. Findings: Head CT: Ventricles, basal cisterns and sulci over convexities are moderately to markedly enlarged consistent with moderate to marked atrophy. There is mild decreased density in the periventricular white matter consistent with chronic ischemic white matter demyelination. There is no mass effect or shift of the midline structures. There is no acute intra or extra-axial hemorrhage. Posterior fossa including the brainstem, fourth ventricle and cerebellar pontine angles are grossly n ormal. The intraorbital contents appear normal and symmetric. Visualized paranasal sinuses are well aerated. The calvarium is intact. CT cervical spine: Craniovertebral junction relationships and prevertebral soft tissues are normal. The cervical vertebral segments are normal in height and alignment and there is no fracture subluxati on. There is moderate to marked disc space narrowing, mild spondylosis and discogenic endplate changes at the C3-4, C4-5, C5-6 and C6-7 levels consistent with moderate to marked degenerative disc disease. T here is been no significant interval change. There is moderate facet and uncovertebral joint arthropathy. Throughout the cervical spine. There is no bony encroachment of the cervical canal. There is moderate bony neural foraminal encroach ment at C4-5 bilaterally and mild at C5-6 on the left. The paraspinal soft tissues unremarkable. IMPRESSION: 1. Head CT: No acute bleed or mass effect. Moderate to marked generalized atrophy 2. CT cervical spine: No acute trauma. Advanced degenerative disc disease and osteoarthritic changes of facet joints and uncovertebral joints as described above. No significant interval change compared to previous [facility], , 05/12/2024 1:38 PM
[2024-05-12 13:41] LABS: ALT 14 U/L (4-49); AST 22 U/L (17-59); African American GFR (CKD) 53 (>60 ml/min/1.73 sqM); Albumin 3.6 g/dL (3.5-5.0); Alkaline Phosphatase 73 U/L (38-126); Anion Gap 10 mmol/L; Blood Urea Nitrogen 24 mg/dL (9-20); Carbon Dioxide 23 mmol/L (22-30); Chloride 105 mmol/L (98-107); Glucose 124 mg/dL (74-99); Non-African American GFR(CKD) 46 (>60 ml/min/1.73 sqM); Potassium 3.7 mmol/L (3.5-5.1); Sodium 138 mmol/L (137-145); Total Bilirubin 1.7 mg/dL (0.2-1.3); Total Protein 6.2 g/dL (6.3-8.2)
[2024-05-12 13:42] LABS: INR 1.1 (<1.2); Partial Thromboplastin Time 28.4 sec (22.0-30.0); Prothrombin Time 12.1 sec (10.0-12.5)
[2024-05-12] MEDS: ASPIRIN 81 MG PO STA (14:09)
[2024-05-12] MEDS: SODIUM CHLORIDE 0.9% 500 ML 500 ML IV ONE (14:22)
--- NOTE | 2024-05-12 15:03 | XR ---
EXAMINATION TYPE: XR chest 1V portable DATE OF EXAM: 05/12/2024 2:45 PM COMPARISON: Previous chest radiograph 05/03/2024. CLINICAL INDICATION: Male, 84 years old with history of dizziness; [facility] TECHNIQUE: XR chest 1V portable Frontal view of the chest. FINDINGS: Lungs/Pleura: There is no evidence of pleural effusion, focal consolidation, or pneumothorax. Pulmonary vascularity: Unremarkable. Heart/mediastinum: Stable cardiac silhouette. Left chest wall cardiac AICD device with leads overlyin g the right atrium and right ventricle. Musculoskeletal: No acute osseous pathology. Other findings: None Lines/Tubes: IMPRESSION: No acute cardiopulmonary disease/process. [facility], , 05/12/2024 3:00 PM
[2024-05-12] MEDS ORDERED: NALOXONE 0.4 MG/ML 1 ML VIAL IV PRN (16:22)
[2024-05-12] MEDS: DONEPEZIL 5 MG TAB PO SCH (20:07)
[2024-05-12] MEDS: APIXABAN 5 MG TAB PO SCH (20:08)
[2024-05-13] MEDS: METOPROLOL SUCCINATE (ER) 50 MG TAB.ER.24H PO SCH (08:37)
[2024-05-13] MEDS: ATORVASTATIN 80 MG TAB PO SCH (08:37)
[2024-05-13] MEDS: DAPAGLIFLOZIN PROPANEDIOL 5 MG TABLET PO SCH (08:37)
[2024-05-13] MEDS: ISOSORBIDE MONONITRATE ER 30 MG TAB.ER.24H PO SCH (08:59)
--- NOTE | 2024-05-13 10:29 | P.CRDCN ---
History of Present Illness History of present illness: HISTORY OF PRESENT ILLNESS: This is a 84-year-old male with a past medical history significant for nonischemic cardiomyopathy, BiV ICD implantation, aortic stenosis, hypertension, hyperlipidemia, paroxysmal atrial fibrillation, and former nicotine dependence. Patient follows in the office with Dr. Coe. We have been asked to see the patient in consultation for elevated troponins. Patient examined at the bedside. Patient presented to the hospital with a chief complaint of dizziness. The patient does report that he fell to the ground. He denies losing consciousness. Patient currently denies chest pain or pressure. He denies shortness of breath. Blood pressure this morning is 100/58. DIAGNOSTICS: - EKG reveals ventricular paced rhythm - Chest xray negative for acute process - Laboratory data: WBC 7.9. Hemoglobin 10.1. Platelet count 133. Sodium 138. Potassium 3.4. BUN 24. Creatinine 1.39. Troponin 0.059. 0.057. 0.047. - Current home cardiac medications include Eliquis 5 mg twice a day, Lipitor 80 mg daily, Jardiance 10 mg daily, metoprolol succinate 50 mg daily, Entresto 24- 26 mg twice a day, and Aldactone 12.5 mg daily - Most recent echocardiogram obtained in April 2023 in the office revealed ejection fraction 45%, moderate aortic stenosis with mean gradient 24, mild AR, mild MR, mild TR - Cardiac catheterization history: September 2020 revealing left dominant system. Diffuse disease in the mid and distal LAD. No other significant lesions. Elevated left-sided filling pressures. REVIEW OF SYSTEMS: At the time of my exam: CONSTITUTIONAL: Denies fever or chills. HEENT: Denies blurred vision, vision changes, or eye pain. Denies hemoptysis CARDIOVASCULAR: Denies chest pain. Denies orthopnea. Denies PND. Denies palpitations RESPIRATORY: Denies shortness of breath. GASTROINTESTINAL: Denies abdominal pain. Denies nausea or vomiting. HEMATOLOGIC: Denies bleeding disorders. GENITOURINARY: Denies any blood in urine. SKIN: Denies pruitis. Denies rash. PHYSICAL EXAM: VITAL SIGNS: Reviewed. GENERAL: Well-developed in no acute distress. HEENT: Head is normocephalic. Pupils are equal, round. Sclerae anicteric. Mucous membranes of the mouth are moist. Neck supple. No JVD or thyromegaly LUNGS: Respirations even and unlabored. Lungs essentially clear to auscultation bilaterally. HEART: Regular rate and rhythm. S1 and S2 heard. Systolic murmur noted. ABDOMEN: Soft. Nondistended. Nontender. EXTREMITIES: Normal range of motion. No clubbing or cyanosis. Peripheral pulses intact. No lower extremity edema NEUROLOGIC: Awake and alert. Oriented x 3. ASSESSMENT: Dizziness with fall without syncope Acute kidney injury Elevated troponins, flat, likely secondary to poor renal clearance, no evidence of myocardial injury or ischemia Nonischemic cardiomyopathy History of BiV ICD implantation Moderate aortic stenosis Hypertension Hyperlipidemia Paroxysmal atrial fibrillation Former nicotine dependence PLAN: Obtain 2D echo to assess cardiac structure and function Hold Entresto and Aldactone secondary to abnormal kidney function along with soft blood pressures Resume additional home cardiac medications Continue telemetry monitoring Check orthostatic blood pressures Possible outpatient stress test. No plans for any inpatient procedures from a cardiac standpoint Further recommendations pending patient course Nurse practitioner note has been reviewed by physician. Signing provider agrees with the documented findings, assessment, and plan of care documented by [employer] as a scribe. Past Medical History Past Medical History: Atrial Fibrillation, Coronary Artery Disease (CAD), Heart Failure, COPD, Hearing Disorder / Deafness, Hyperlipidemia, Hypertension Additional Past Medical History / Comment(s): Pt is very [place] in R ear and slightly [place] in L ear, anemia. History of Any Multi-Drug Resistant Organisms: None Reported Past Surgical History: AICD, Cardiac Ablation, Tonsillectomy Additional Past Surgical History / Comment(s): pt unrelaible source for PMH d/t intermitten confusion Past Anesthesia/Blood Transfusion Reactions: No Reported Reaction Type of Cardiac Device: Unknown Device Placement Date:: 2021 Past Psychological History: No Psychological Hx Reported Smoking Status: Former smoker Past Alcohol Use History: None Reported Additional Past Alcohol Use History / Comment(s): Pt started smoking in 1964 and quit in 2014. pt smokes pipe Past Drug Use History: None Reported - Past Family History Father Family Medical History: No Reported History Additional Family Medical History / Comment(s): . Mother Family Medical History: No Reported History Additional Family Medical History / Comment(s): . Medications and Allergies Home Medications Medication Instructions Recorded Confirmed Type Apixaban [Eliquis] 5 mg PO BID 05/01/21 05/12/24 History Atorvastatin [Lipitor] 80 mg PO DAILY 05/01/21 05/12/24 History Metoprolol Succinate (ER) [Toprol 50 mg PO DAILY #90 tab 08/19/21 05/12/24 Rx XL] Donepezil [Aricept] 5 mg PO DAILY 05/12/24 05/12/24 History Empagliflozin [Jardiance] 10 mg PO DAILY 05/12/24 05/12/24 History Sacubitril/Valsartan [Entresto 24 1 tab PO BID 05/12/24 05/12/24 History mg-26 mg Tablet] Spironolactone [Aldactone] 12.5 mg PO DAILY 05/12/24 05/12/24 History Allergies Allergy/AdvReac Type Severity Reaction Status Date / Time No Known Allergies Allergy Verified 05/12/24 17:32 Physical Exam Vitals: Vital Signs Temp Pulse Pulse Resp BP BP Pulse Ox 05/13/24 08:57 84 100/58 05/13/24 08:55 71 108/62 05/13/24 08:54 58 L 115/68 05/13/24 08:33 97.7 F 62 18 105/65 97 05/13/24 04:00 97.5 F L 62 16 114/58 96 05/13/24 00:00 97.4 F L 60 14 117/61 98 05/12/24 20:00 98.6 F 89 18 107/61 98 05/12/24 18:14 98.9 F 60 18 118/63 97 05/12/24 17:05 97.6 F 64 16 98/58 99 05/12/24 14:05 53 L 20 93/41 94 L 05/12/24 12:50 97.8 F 74 18 108/76 92 L Intake and Output 05/12/24 05/13/24 05/13/24 22:59 06:59 14:59 Intake Total 500 250 Balance 500 250 Intake: IV 10 Invasive Line 1 10 Intake, IV Titration 500 Amount Sodium Chloride 0.9% 500 500 ml 500 ml @ 999 mls/hr IV .Q31M ONE Rx#:[id number] Oral 240 Other: Voiding Method Toilet Toilet Toilet # Voids 1 0 Weight 80.739 kg 73.6 kg Results 05/12/24 13:16 05/12/24 13:16 Cardiac Enzymes 05/12/24 05/12/24 05/12/24 Range/Units 13:16 13:16 16:38 AST 22 (17-59) U/L Troponin I 0.059 H* 0.057 H* (0.000-0.034) ng/mL 05/12/24 Range/Units 20:28 AST (17-59) U/L Troponin I 0.047 H* (0.000-0.034) ng/mL Coagulation 05/12/24 Range/Units 13:16 PT 12.1 (10.0-12.5) sec APTT 28.4 (22.0-30.0) sec CBC 05/12/24 Range/Units 13:16 WBC 7.9 (3.8-10.6) k/uL RBC 3.03 L (4.30-5.90) m/uL Hgb 10.1 L (13.0-17.5) gm/dL Hct 29.8 L (39.0-53.0) % Plt Count 133 L (150-450) k/uL Comprehensive Metabolic Panel 05/12/24 Range/Units 13:16 Sodium 138 (137-145) mmol/L Potassium 3.7 (3.5-5.1) mmol/L Chloride 105 (98-107) mmol/L Carbon Dioxide 23 (22-30) mmol/L BUN 24 H (9-20) mg/dL Creatinine 1.39 H (0.66-1.25) mg/dL Glucose 124 H (74-99) mg/dL Calcium 9.0 (8.4-10.2) mg/dL AST 22 (17-59) U/L ALT 14 (4-49) U/L Alkaline Phosphatase 73 (38-126) U/L Total Protein 6.2 L (6.3-8.2) g/dL Albumin 3.6 (3.5-5.0) g/dL Current Medications Generic Name Dose Route Start Last Admin Trade Name Freq PRN Reason Stop Dose Admin Apixaban 5 mg 05/12/24 21:00 05/13/24 08:37 Apixaban 5 Mg Tab PO 5 mg BID SHAKIR Administration Protocol Atorvastatin Calcium 80 mg 05/13/24 09:00 05/13/24 08:37 Atorvastatin 80 Mg Tab PO 80 mg DAILY SHAKIR Administration Dapagliflozin 5 mg 05/13/24 09:00 05/13/24 08:37 Dapagliflozin Propanediol 5 Mg Tablet PO 5 mg DAILY SHAKIR Administration Donepezil HCl 5 mg 05/12/24 19:30 05/13/24 08:37 Donepezil 5 Mg Tab PO 5 mg DAILY SHAKIR Administration Isosorbide Mononitrate 30 mg 05/13/24 09:00 05/13/24 08:59 Isosorbide Mononitrate Er 30 Mg Tab.Er.24h PO 30 mg DAILY SHAKIR Administration Metoprolol Succinate 50 mg 05/13/24 09:00 05/13/24 08:37 Metoprolol Succinate (Er) 50 Mg Tab.Er.24h PO 50 mg DAILY SHAKIR Administration Naloxone HCl 0.2 mg 05/12/24 16:22 Naloxone 0.4 Mg/Ml 1 Ml Vial IV Q2M PRN Opioid Reversal Intake and Output 05/12/24 05/13/24 05/13/24 22:59 06:59 14:59 Intake Total 500 250 Balance 500 250 Intake: IV 10 Invasive Line 1 10 Intake, IV Titration 500 Amount Sodium Chloride 0.9% 500 500 ml 500 ml @ 999 mls/hr IV .Q31M ONE Rx#:[id number] Oral 240 Other: Voiding Method Toilet Toilet Toilet # Voids 1 0 Weight 80.739 kg 73.6 kg 05/12/24 13:16 05/12/24 13:16
[2024-05-13 11:06] LABS: Basophils % (A) 1 %; Eosinophils # (A) 0.2 k/uL (0-0.7); Eosinophils % (A) 3 %; HCT 29.1 % (39.0-53.0); HGB 9.7 gm/dL (13.0-17.5); Lymphocytes # (A) 1.2 k/uL (1.0-4.8); Lymphocytes % (A) 19 %; MCH 33.3 pg (25.0-35.0); MCHC 33.3 g/dL (31.0-37.0); MCV 99.9 fL (80.0-100.0); Macrocytosis Slight; Mean Platelet Volume 8.6; Monocytes # (A) 0.4 k/uL (0-1.0); Monocytes % (A) 6 %; Neutrophils # (A) 4.4 k/uL (1.3-7.7); Neutrophils % (A) 71 %; Platelet Count 147 k/uL (150-450); RBC 2.92 m/uL (4.30-5.90); RDW 15.5 % (11.5-15.5); WBC 6.2 k/uL (3.8-10.6)
[2024-05-13 11:14] LABS: ALT 14 U/L (4-49); AST 23 U/L (17-59); African American GFR (CKD) 62 (>60 ml/min/1.73 sqM); Albumin 3.4 g/dL (3.5-5.0); Alkaline Phosphatase 72 U/L (38-126); Anion Gap 5 mmol/L; Blood Urea Nitrogen 22 mg/dL (9-20); Carbon Dioxide 28 mmol/L (22-30); Chloride 106 mmol/L (98-107); Glucose 115 mg/dL (74-99); Non-African American GFR(CKD) 54 (>60 ml/min/1.73 sqM); Potassium 4.1 mmol/L (3.5-5.1); Sodium 139 mmol/L (137-145); Total Bilirubin 1.2 mg/dL (0.2-1.3)
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
[2024-05-14] MEDS: QUEtiapine 25 MG TAB PO STA (03:14)
[2024-05-14] MEDS ORDERED: ZINC OXIDE PASTE (Z-GUARD) 1 APPLIC TOPICAL PRN (10:08)
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
[2024-05-14 13:55] VITALS: BMI 22.6
--- NOTE | 2024-05-14 14:45 | P.PN ---
Subjective Progress Note Date: 05/14/24 HISTORY OF PRESENT ILLNESS: This is a 84-year-old male with a past medical history significant for luis miguel schemic cardiomyopathy, BiV ICD implantation, aortic stenosis, hypertension, hyperlipidemia, paroxysmal atrial fibrillation, and former nicotine dependence. Patient follows in the office with Dr. Coe. We have been asked to see the patient in consultation for elevated troponins. Patient examined at the bedside. Patient presented to the hospital with a chief complaint of dizziness. The patient does report that he fell to the ground. He denies losing consciousness. Patient currently denies chest pain or pressure. He denies shortness of breath. Blood pressure this morning is 100/58. DIAGNOSTICS: - EKG reveals ventricular paced rhythm - Chest xray negative for acute process - Laboratory data: WBC 7.9. Hemoglobin 10.1. Platelet count 133. Sodium 138. Potassium 3.4. BUN 24. Creatinine 1.39. Troponin 0.059. 0.057. 0.047. - Current home cardiac medications include Eliquis 5 mg twice a day, Lipitor 80 mg daily, Jardiance 10 mg daily, metoprolol succinate 50 mg daily, Entresto 24- 26 mg twice a day, and Aldactone 12.5 mg daily - Most recent echocardiogram obtained in April 2023 in the office revealed ejection fraction 45%, moderate aortic stenosis with mean gradient 24, mild AR, mild MR, mild TR - Cardiac catheterization history: September 2020 revealing left dominant system. Diffuse disease in the mid and distal LAD. No other significant lesions. Elevated left-sided filling pressures. 05/14 Patient seen and examined. Blood pressure 126/71, heart rate 60, pulse ox 93% on room air. Patient has had Entresto and Aldactone on hold due to kidney results and hypotension. Patient has some confusion this morning and received Seroquel. Orthostatic vital signs were checked from sitting to standing which were negative. No repeat blood work today. Echocardiogram is pending. PHYSICAL EXAM: VITAL SIGNS: Reviewed. GENERAL: Well-developed in no acute distress. HEENT: Head is normocephalic. Pupils are equal, round. Sclerae anicteric. Mucous membranes of the mouth are moist. Neck supple. No JVD or thyromegaly LUNGS: Respirations even and unlabored. Lungs essentially clear to auscultation bilaterally. HEART: Regular rate and rhythm. S1 and S2 heard. Systolic murmur noted. ABDOMEN: Soft. Nondistended. Nontender. EXTREMITIES: Normal range of motion. No clubbing or cyanosis. Peripheral pulses intact. No lower extremity edema NEUROLOGIC: Awake and alert. Oriented x 3. ASSESSMENT: Dizziness with fall without syncope Acute kidney injury Elevated troponins, flat, likely secondary to poor renal clearance, no evidence of myocardial injury or ischemia Nonischemic cardiomyopathy History of BiV ICD implantation Moderate aortic stenosis Hypertension Hyperlipidemia Paroxysmal atrial fibrillation Former nicotine dependence PLAN: Obtain 2D echo to assess cardiac structure and function Hold Entresto and Aldactone secondary to abnormal kidney function along with soft blood pressures Continue patient on Eliquis, atorvastatin, Farxiga, Toprol XL At the time of discharge, Entresto may be resumed at a lower dose Continue telemetry monitoring Possible outpatient stress test. No plans for any inpatient procedures from a cardiac standpoint Further recommendations pending patient course Nurse practitioner note has been reviewed by physician. Signing provider agrees with the documented findings, assessment, and plan of care documented by MAINTENANCE PERSON as a scribe. Objective - Vital Signs Vital signs: Vital Signs Temp 98.2 F 05/14/24 03:16 Pulse 68 05/14/24 08:25 Resp 15 05/14/24 08:25 BP 126/71 05/14/24 08:25 Pulse Ox 93 L 05/14/24 08:25 FiO2 Intake & Output 05/13/24 05/14/24 05/14/24 18:59 06:59 18:59 Intake Total 910 20 Balance 910 20 Weight 73.5 kg Intake: IV 10 20 Invasive Line 1 10 20 Oral 900 Other: Voiding Method Toilet Toilet # Voids 1 1 # Bowel Movements 2 - Labs CBC & Chem 7: 05/13/24 10:38 05/13/24 10:38 Labs: Abnormal Lab Results - Last 24 Hours (Table) 05/13/24 05/13/24 Range/Units 10:38 10:38 RBC 2.92 L (4.30-5.90) m/uL Hgb 9.7 L (13.0-17.5) gm/dL Hct 29.1 L (39.0-53.0) % Plt Count 147 L (150-450) k/uL BUN 22 H (9-20) mg/dL Glucose 115 H (74-99) mg/dL Total Protein 6.0 L (6.3-8.2) g/dL Albumin 3.4 L (3.5-5.0) g/dL
[2024-05-14] MEDS ORDERED: ACETAMINOPHEN TAB 325 MG TAB PO PRN (15:53)
[2024-05-14] MEDS: QUEtiapine 25 MG TAB PO SCH (20:33)
[2024-05-14] MEDS: HALOPERIDOL LACTATE 5 MG/ML 1 ML VIAL IVP PRN (23:59)
[2024-05-15 09:07] LABS: African American GFR (CKD) 58 (>60 ml/min/1.73 sqM); Anion Gap 7 mmol/L; Blood Urea Nitrogen 19 mg/dL (9-20); Calcium 8.8 mg/dL (8.4-10.2); Carbon Dioxide 25 mmol/L (22-30); Chloride 106 mmol/L (98-107); Glucose 103 mg/dL (74-99); Non-African American GFR(CKD) 50 (>60 ml/min/1.73 sqM); Potassium 3.7 mmol/L (3.5-5.1); Sodium 138 mmol/L (137-145)
--- NOTE | 2024-05-15 11:26 | CA ---
Transthoracic Echo Report Name: Russ Schaeffer Age: 84 Gender: M : 1940 Exam Date: 05/15/2024 09:00 Exam Location: [facility] Ht (in): 71 Wt (lb): 162 Ordering Physician: Dilcia Murphy Attending/Referring Phys: [id number], [facility] Adviser Mary Leach, LORAINE Procedure CPT: Indications: lv funcyion Cardiac Hx: CAD, COPD, HTN, and Pacemaker Technical Quality: Fair Contrast 1: Total Dose (mL): Contrast 2: Total Dose (mL): MEASUREMENTS (Male / Female) Normal Values 2D ECHO LV Diastolic Diameter PLAX 4.2 cm 4.2 - 5.9 / 3.9 - 5.3 cm LV Systolic Diameter PLAX 3.0 cm IVS Diastolic Thickness 1.2 cm 0.6 - 1.0 / 0.6 - 0.9 cm LVPW Diastolic Thickness 1.1 cm 0.6 - 1.0 / 0.6 - 0.9 cm LV Relative Wall Thickness 0.6 RV Internal Dim ED PLAX 4.1 cm LA Systolic Diameter LX 3.5 cm 3.0 - 4.0 / 2.7 - 3.8 cm LA Volume 61.2 cm??? 18 - 58 / 22 - 52 cm??? LA Volume Index 31.9 cm???/m??? 16 - 28 cm???/m??? DOPPLER AV Peak Velocity 348.5 cm/s AV Peak Gradient 48.6 mmHg AV Mean Velocity 264.1 cm/s AV Mean Gradient 30.9 mmHg AV Velocity Time Integral 79.0 cm AI Peak Velocity 251.9 cm/s AI Peak Gradient 25.4 mmHg AI Pressure Half Time 448.4 ms LVOT Peak Velocity 83.1 cm/s LVOT Peak Gradient 2.8 mmHg LVOT Velocity Time Integral 18.8 cm MV Area PHT 3.3 cm??? Mitral E Point Velocity 52.6 cm/s Mitral A Point Velocity 82.0 cm/s Mitral E to A Ratio 0.6 MV Deceleration Time 228.0 ms FINDINGS Left Ventricle Left ventricular ejection fraction is estimated at 55-60 %. Mildly increased septal wall thickness. Normal left ventricular systolic function with no obvious regional wall motion abnormalities. Right Ventricle Normal right ventricular size and function. Unable to estimate the right ventricular systolic pressure. Right Atrium Normal right atrial size. Left Atrium Normal left atrial size. Mildly increased left atrial volume. Mitral Valve Mitral valve thickened. Trace mitral regurgitation. Aortic Valve Trileaflet aortic valve. Thickened aortic valve with stenosis. Moderate aortic stenosis with a peak gradient of 60 mmHg and a mean gradient of 37 mmHg. Mild aortic regurgitation. Tricuspid Valve Structurally normal tricuspid valve. Trace tricuspid regurgitation. Pulmonic Valve Structurally normal pulmonic valve. No pulmonic regurgitation. No pulmonic stenosis. Pericardium No pericardial or pleural effusion. Aorta Mild aortic dilatation at the level of the sinuses of valsalva (root). CONCLUSIONS Normal LV size and systolic function with mild concentric LVH. Mitral annular calcification noted. Calcification of aortic valve leaflets with moderate stenosis and mild regurgitation. Minimal mitral insufficiency noted. Right- sided pressures are not well quantified. No pericardial effusion Previewed by: Dr. Tera Coe MD (Electronically Signed) Final Date: 15 May 2024 11:25
[2024-05-15 12:18] VITALS: BP 104/51; PULSE 70; RESP 17; TEMP 97.8
--- NOTE | 2024-05-15 13:02 | P.PN ---
Subjective Progress Note Date: 05/15/24 HISTORY OF PRESENT ILLNESS: This is a 84-year-old male with a past medical history significant for luis miguel schemic cardiomyopathy, BiV ICD implantation, aortic stenosis, hypertension, hyperlipidemia, paroxysmal atrial fibrillation, and former nicotine dependence. Patient follows in the office with Dr. Coe. We have been asked to see the patient in consultation for elevated troponins. Patient examined at the bedside. Patient presented to the hospital with a chief complaint of dizziness. The patient does report that he fell to the ground. He denies losing consciousness. Patient currently denies chest pain or pressure. He denies shortness of breath. Blood pressure this morning is 100/58. DIAGNOSTICS: - EKG reveals ventricular paced rhythm - Chest xray negative for acute process - Laboratory data: WBC 7.9. Hemoglobin 10.1. Platelet count 133. Sodium 138. Potassium 3.4. BUN 24. Creatinine 1.39. Troponin 0.059. 0.057. 0.047. - Current home cardiac medications include Eliquis 5 mg twice a day, Lipitor 80 mg daily, Jardiance 10 mg daily, metoprolol succinate 50 mg daily, Entresto 24- 26 mg twice a day, and Aldactone 12.5 mg daily - Most recent echocardiogram obtained in April 2023 in the office revealed ejection fraction 45%, moderate aortic stenosis with mean gradient 24, mild AR, mild MR, mild TR - Cardiac catheterization history: September 2020 revealing left dominant system. Diffuse disease in the mid and distal LAD. No other significant lesions. Elevated left-sided filling pressures. 05/14 Patient seen and examined. Blood pressure 126/71, heart rate 60, pulse ox 93% on room air. Patient has had Entresto and Aldactone on hold due to kidney results and hypotension. Patient has some confusion this morning and received Seroquel. Orthostatic vital signs were checked from sitting to standing which were negative. No repeat blood work today. Echocardiogram is pending. 05/15 Patient seen and examined. Patient had difficulty this morning with confusion and received Haldol. There is also been a psychiatry consult added. Blood pressures 104/51, heart rate 70, pulse ox 94% on room air. Repeat blood work reveals BUN 19 and creatinine 1.28. Echocardiogram reveals EF of 55 to 60%, calcified aortic valve leaflets with moderate stenosis and mild regurgitation. Minimal mitral insufficiency noted. Right sided pressures are not well quantified. No pericardial effusion. PHYSICAL EXAM: VITAL SIGNS: Reviewed. GENERAL: Well-developed in no acute distress. HEENT: Head is normocephalic. Pupils are equal, round. Sclerae anicteric. Mucous membranes of the mouth are moist. Neck supple. No JVD or thyromegaly LUNGS: Respirations even and unlabored. Lungs essentially clear to auscultation bilaterally. HEART: Regular rate and rhythm. S1 and S2 heard. Systolic murmur noted. ABDOMEN: Soft. Nondistended. Nontender. EXTREMITIES: Normal range of motion. No clubbing or cyanosis. Peripheral pulses intact. No lower extremity edema NEUROLOGIC: Awake and alert. Oriented x 3. ASSESSMENT: Dizziness with fall without syncope Acute kidney injury Elevated troponins, flat, likely secondary to poor renal clearance, no evidence of myocardial injury or ischemia Nonischemic cardiomyopathy, recovered History of BiV ICD implantation Moderate aortic stenosis Hypertension Hyperlipidemia Paroxysmal atrial fibrillation Former nicotine dependence PLAN: Continue patient on Eliquis, atorvastatin, Farxiga, Toprol XL At the time of discharge, Entresto may be resumed at 15 mg / 16 mg Continue telemetry monitoring Possible outpatient stress test. No plans for any inpatient procedures from a cardiac standpoint Cardiology will sign off this case and follow on an as-needed basis. Please reconsult for any new concerns. Patient may follow-up in the office in one to 2 weeks. Nurse practitioner note has been reviewed by physician. Signing provider agrees with the documented findings, assessment, and plan of care documented by FLOOR GRINDER as a scribe. Objective - Vital Signs Vital signs: Vital Signs Temp 98.2 F 05/15/24 08:00 Pulse 83 05/15/24 08:00 Resp 16 05/15/24 08:00 BP 108/58 05/15/24 08:00 Pulse Ox 93 L 05/15/24 08:00 FiO2 Intake & Output 05/14/24 05/15/24 05/15/24 18:59 06:59 18:59 Intake Total 180 Balance 180 Weight 73.5 kg 71.5 kg Intake: Oral 180 Other: Voiding Method Toilet # Voids 4 1 2 # Bowel Movements 1 - Labs CBC & Chem 7: 05/13/24 10:38 05/15/24 07:31 Labs: Abnormal Lab Results - Last 24 Hours (Table) 01/28/25 Range/Units 07:31 Creatinine 1.28 H (0.66-1.25) mg/dL Glucose 103 H (74-99) mg/dL
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
== END 2024-05-15 15:29 | disposition home or self-care (01) | DRG 683 ==
LOC: EC 12:49 → 3SCARD 16:23
PROVIDERS: ADMIT Internal Medicine; ATTEND Internal Medicine
DX: N17.9 Acute kidney failure, unspecified (principal); I42.8 Other cardiomyopathies; T74.91XA Unspecified adult maltreatment, confirmed, initial encounter; I50.9 Heart failure, unspecified; I11.0 Hypertensive heart disease with heart failure; J44.9 Chronic obstructive pulmonary disease, unspecified; I35.0 Nonrheumatic aortic (valve) stenosis; R41.82 Altered mental status, unspecified; I48.0 Paroxysmal atrial fibrillation; E78.5 Hyperlipidemia, unspecified; R42 Dizziness and giddiness; I25.10 Atherosclerotic heart disease of native coronary artery without angina pectoris; R45.1 Restlessness and agitation; W19.XXXA Unspecified fall, initial encounter; Z79.01 Long term (current) use of anticoagulants; Z87.891 Personal history of nicotine dependence; Z95.810 Presence of automatic (implantable) cardiac defibrillator
CPT/HCPCS: 36415; 70450; 71045; 72125; 80048; 80053; 84484; 85025; 85610; 85730; 93005; 93306; 96360; 99291

== ENCOUNTER 2024-11-07 12:30 | Emergency (ER) | payer MEDICARE, OTHER ==
--- NOTE | 2024-11-07 13:02 | ED ---
Fall HPI - General Chief Complaint: Fall Stated Complaint: Fall Time Seen by Provider: 11/07/24 12:47 Source: patient, RN notes reviewed Mode of arrival: ambulatory - History of Present Illness Initial Comments: This is an 84-year-old male with history including atrial fibrillation, CAD, heart failure, COPD presenting with legal guardian from Dr. Martinez's office following a head injury on Tuesday. Patient states he was pulling up a tire when it "blew up", causing him to fall backwards, striking the back of his head. Patient endorses use of Eliquis due to A-fib. States he initially refused EMS transport noting ongoing right axillary rib pain (5/10) that worsens with coughing. We have a guardian states a witness witnessed patient lose consciousness after striking his head. Patient denies ongoing headache, dizziness, vision changes, neck pain, difficulty ambulating or other extremity injury. 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) Fall Witnessed: yes, by bystander Place Fall Occurred: street Loss of Consciousness: unsure Prolonged Down Time?: unclear Symptoms Prior to Fall: none Location: head, chest Severity scale (1-10): 5 Associated Symptoms: other (Rib pain) - Related Data Home Medications Medication Instructions Recorded Confirmed Apixaban [Eliquis] 5 mg PO BID 05/01/21 05/12/24 Atorvastatin [Lipitor] 80 mg PO DAILY 05/01/21 05/12/24 Donepezil [Aricept] 5 mg PO DAILY 05/12/24 05/12/24 Empagliflozin [Jardiance] 10 mg PO DAILY 05/12/24 05/12/24 Previous Rx's Medication Instructions Recorded Metoprolol Succinate (ER) [Toprol 50 mg PO DAILY #90 tab 08/19/21 XL] Lidocaine 4% Patch 1 patch TOPICAL Q24H PRN #10 patch 11/07/24 Allergies Allergy/AdvReac Type Severity Reaction Status Date / Time No Known Allergies Allergy Verified 11/07/24 12:39 Review of Systems ROS Statement: Those systems with pertinent positive or pertinent negative responses have been documented in the HPI. ROS Other: All systems not noted in ROS Statement are negative. Past Medical History Past Medical History: Atrial Fibrillation, Coronary Artery Disease (CAD), Heart Failure, COPD, Hearing Disorder / Deafness, Hyperlipidemia, Hypertension Additional Past Medical History / Comment(s): Pt is very [place] in R ear and slightly [place] in L ear, anemia. History of Any Multi-Drug Resistant Organisms: None Reported Past Surgical History: AICD, Cardiac Ablation, Tonsillectomy Additional Past Surgical History / Comment(s): pt unrelaible source for PMH d/t intermitten confusion Past Anesthesia/Blood Transfusion Reactions: No Reported Reaction Type of Cardiac Device: Unknown Device Placement Date:: 2021 Past Psychological History: No Psychological Hx Reported Smoking Status: Former smoker Past Alcohol Use History: None Reported Past Drug Use History: None Reported - Past Family History Father Family Medical History: No Reported History Additional Family Medical History / Comment(s): . Mother Family Medical History: No Reported History Additional Family Medical History / Comment(s): . General Exam Limitations: no limitations General appearance: alert, in no apparent distress Head exam: Present: atraumatic, normocephalic, normal inspection, other (Negative barr signs) Eye exam: Present: normal appearance, PERRL, EOMI, other (Negative raccoon eyes). Absent: scleral icterus, conjunctival injection, periorbital swelling Pupils: Present: normal accommodation ENT exam: Present: normal exam, mucous membranes moist, normal external ear exam Neck exam: Present: normal inspection. Absent: tenderness, meningismus, lymphadenopathy Respiratory exam: Present: chest wall tenderness (Positive right anterior axillary inferior rib point TTP without obvious crepitus), decreased breath sounds. Absent: respiratory distress, wheezes, rales, rhonchi, stridor, accessory muscle use, prolonged expiratory Cardiovascular Exam: Present: regular rate, normal rhythm, normal heart sounds. Absent: systolic murmur, diastolic murmur, rubs, gallop, clicks GI/Abdominal exam: Present: soft, normal bowel sounds. Absent: distended, tenderness, guarding, rebound, rigid Extremities exam: Present: normal inspection, full ROM, normal capillary refill. Absent: tenderness, pedal edema, joint swelling, calf tenderness Back exam: Present: normal inspection Neurological exam: Present: alert, oriented X3, CN II-XII intact Psychiatric exam: Present: normal affect, normal mood Skin exam: Present: warm, dry, intact, normal color. Absent: rash Course Vital Signs 11/07/24 11/07/24 12:33 15:19 Temperature 97.8 F 98.0 F Pulse Rate 60 52 L Respiratory 15 20 Rate Blood Pressure 143/69 147/77 O2 Sat by Pulse 100 99 Oximetry Medical Decision Making - Medical Decision Making Was pt. sent in by a medical professional or institution (, PA, HEALTH AND SAFETY TRAINER, urgent care, hospital, or alf...) When possible be specific @ -No Did you speak to anyone other than the patient for history (EMS, parent, family, police, friend...)? What history was obtained from this source @ -Guardian provided portion of HPI Did you review nursing and triage notes (agree or disagree)? Why? @ -I reviewed and agree with nursing and triage notes Were old charts reviewed (outside hosp., previous admission, EMS record, old EKG, old radiological studies, urgent care reports/EKG's, alf records)? Report findings @ -No old charts were reviewed Differential Diagnosis (chest pain, altered mental status, abdominal pain women, abdominal pain men, vaginal bleeding, weakness, fever, dyspnea, syncope, headache, dizziness, GI bleed, back pain, seizure, CVA, palpatations, mental health, musculoskeletal)? @ -Differential Musculoskeletal Muscular strain, contusion, ligament sprain, fracture, arthritis, septic arthritis, bursitis, cellulitis, muscle spasm, nerve compression, DVT, arterial occlusion, herpes zoster, electrolyte abnormality, tumor.... This is not meant to be in all inclusive list EKG interpreted by me (3pts min.). @ -Not done X-rays interpreted by me (1pt min.). @ - Right rib and chest x-ray shows nondisplaced right lateral seventh rib fracture and COPD changes without consolidation. CT interpreted by me (1pt min.). @ -Head/cervical spine CT shows no acute intracranial process with small region of encephalomalacia of right occipital lobe from remote injury and nonspecific white matter changes. No evidence of cervical spine fracture with moderate multilevel DDD. U/S interpreted by me (1pt. min.). @ -None done What testing was considered but not performed or refused? (CT, X-rays, U/S, labs)? Why? @ -None What meds were considered but not given or refused? Why? @ -None Did you discuss the management of the patient with other professionals (professionals i.e. , PA, HEALTH AND SAFETY TRAINER, lab, RT, psych nurse, social media content specialist, process control specialist, teacher, dog control officer, classification case manager)? Give summary @ -No Was smoking cessation discussed for >3mins.? @ -No Was critical care preformed (if so, how long)? @ -No Were there social determinants of health that impacted care today? How? (Homelessness, low income, unemployed, alcoholism, drug addiction, transportation, low edu. Level, literacy, decrease access to med. care, senior care, rehab)? @ -No Was there de-escalation of care discussed even if they declined (Discuss DNR or withdrawal of care, Hospice)? DNR status @ -No What co-morbidities impacted this encounter? (DM, HTN, Smoking, COPD, CAD, Cancer, CVA, ARF, Chemo, Hep., AIDS, mental health diagnosis, sleep apnea, m orbid obesity)? @ -None Was patient admitted / discharged? Hospital course, mention meds given and route, prescriptions, significant lab abnormalities, going to OR and other pertinent info. @ -Head/cervical spine CT shows no acute intracranial process with small region of encephalomalacia of right occipital lobe from remote injury and nonspecific white matter changes. No evidence of cervical spine fracture with moderate multilevel DDD. Right rib and chest x-ray shows nondisplaced right lateral seventh rib fracture and COPD changes without consolidation. Patient provided lidocaine patch and incentive spirometer with lidocaine patches sent to patient's pharmacy. Advised Tylenol every 4-6 hours as needed for pain as well as cold compress for tenderness up to 4 times daily on affected rib. Advise follow-up with PCP for ongoing evaluation and management of injury. Return to ER if experiencing worsening headache, dizziness, vision changes, altered mental status, nausea/vomiting. Discussed patient with Dr. Bowie. Undiagnosed new problem with uncertain prognosis? @ -No Drug Therapy requiring intensive monitoring for toxicity (Heparin, Nitro, Insulin, Cardizem)? @ -No Were any procedures done? @ -No Diagnosis/symptom? @ -Nondisplaced rib fracture, concussion with possible loss of consciousness Acute, or Chronic, or Acute on Chronic? @ -Acute Uncomplicated (without systemic symptoms) or Complicated (systemic symptoms)? @ -Uncomplicated Side effects of treatment? @ -No Exacerbation, Progression, or Severe Exacerbation? @ -No Poses a threat to life or bodily function? How? (Chest pain, [place], [place], pneumonia, PE, COPD, DKA, ARF, appy, cholecystitis, CVA, Diverticulitis, Homicidal, Suicidal, threat to staff... and all critical care pts) @ -No Disposition Clinical Impression: Fracture of one rib, right side, initial encounter for closed fracture, Concussion Disposition: HOME SELF-CARE Condition: Fair Instructions (If sedation given, give patient instructions): Rib Fracture (ED), Concussion (ED), Fall Prevention for Older Adults (ED) Additional Instructions: Use incentive spirometer at least 10 times every hour. Tylenol every 4-6 hours as needed for pain. Follow-up with PCP in the next 24-48 hours for further evaluation and management of fracture. Prescriptions: Lidocaine 4% Patch 1 patch TOPICAL Q24H PRN #10 patch PRN Reason: Pain Is patient prescribed a controlled substance at d/c from ED?: No Referrals: Gasper Martinez MD [Primary Care Provider] - 1-2 days Time of Disposition: 14:17
--- NOTE | 2024-11-07 14:13 | CT ---
EXAMINATION TYPE: CT brain cspine wo con CT DLP: 1350 mGycm, Automated exposure control for dose reduction was used. DATE OF EXAM: 11/07/2024 2:02 PM COMPARISON: CT brain C-spine 05/12/2024, 07/23/2022. CLINICAL INDICATION:Male, 84 years old with history of Fall backwards; fall backwards and hit, pain TECHNIQUE: Brain: Multiple axial CT images of the brain were obtained without IV contrast. Cspine: Axial CT images from the skull base to the inferior aspect of T2 we obtained without intraven ous contrast. Coronal and sagittal reformatted images were also reviewed. FINDINGS: Brain: Extra-axial spaces: No abnormal extra-axial fluid collections. Ventricular system: Dilatation in proportion to cerebral atrophy. Cerebral parenchyma: Cerebral atrophy. No acute intraparenchymal hemorrhage or mass effect. Small re gion of encephalomalacia within the right occipital lobe. The remaining perez-white junction is well d ifferentiated. Scattered hypoattenuating areas are seen within the periventricular white matter. Cerebellum: Unremarkable. Mass effect: No evidence of midline shift. Intracranial vasculature: Atherosclerotic calcifications of the intracranial vessels. Soft tissues: Normal. Calvarium/osseous structures: No depressed skull fracture. Paranasal sinuses and mastoid air cells: Clear. Visualized orbits: Orbital contents are intact. Cervical spine: Fracture: None. Osseous structures: Multilevel disc space narrowing with endplate sclerosis and anterior osteophytosi s. Multilevel facet arthropathy and uncovertebral joint hypertrophy. Fusion of the left C4 facet join t. Vertebral alignment: Within normal limits. Spinal canal/Neural Foramina: Disc osteophyte complexes at C3-C4, C4-C5 and C5-C6 with minimal to mil d spinal canal stenosis. Facet joint uncovertebral joint arthropathy scattered throughout the cervica l spine with varying degrees of neural foraminal stenosis. Neck soft tissues: Prevertebral soft tissues are within normal limits. Other: The airway is patent. The lung apices are clear. Bilateral carotid bifurcation calcifications. IMPRESSION: 1. No acute intracranial process. 2. Nonspecific white matter changes, likely secondary to chronic small vessel ischemic disease. 3. Small region of the encephalomalacia within the right occipital lobe from remote injury. 4. No evidence of cervical spine fracture. 5. Moderate multilevel degenerative disc disease. [facility], , 11/07/2024 2:11 PM
--- NOTE | 2024-11-07 14:15 | XR ---
EXAMINATION TYPE: XR ribs RT w pa chest xray DATE OF EXAM: 11/07/2024 2:08 PM COMPARISON: 05/12/2024 CLINICAL INDICATION: Male, 84 years old with history of fall, anterior axillary reproducible pain, TT P; PHH, pain TECHNIQUE: 5 views FINDINGS: Left anterior chest wall ICD generator with right atrial, right ventricular, and coronary sinus leads . Heart normal size. Mild atherosclerotic arch calcifications. Hyperinflation. No consolidation or pl eural effusion. There is a nondisplaced right lateral seventh rib fracture. IMPRESSION: 1. Nondisplaced right lateral seventh rib fracture. 2. COPD. No acute cardiopulmonary process. [facility], Workstation: [facility], 11/07/2024 2:13 PM
[2024-11-07] MEDS: LIDOCAINE 4% PATCH TOPICAL ONE (14:29)
[2024-11-07 15:21] VITALS: BP 147/77; PULSE 52; RESP 20; TEMP 98
== END 2024-11-07 15:21 | disposition home or self-care (01) ==
LOC: EC 12:30
CPT/HCPCS: 70450; 72125; 99284